=== PATIENT | male | born 1960 | race Caucasian/White ===

== ENCOUNTER 2018-10-20 04:03 | Observation (INO) | payer MEDICARE ==
[~2018-10-20] VITALS: Ht 188 cm; Wt 127.3 kg
--- NOTE | ~2018-10-20 | HEMODYNAMI ---
PATIENT:SUNIL ALEGRIA MEDICAL RECORD: [id number] : 58 LOCATION:[facility] [address] [facility] [id number] ADMISSION DATE: 10/20/18 Generatedon:10/21/201814:07 Patient name: SUNIL ALEGRIA Patient #: [id number] SSN: [id number] : 1960 Date of study: 10/21/2018 Page: Of Hemodynamic Procedure Report Patient Data Patient Demographics Procedure consent was obtained First Name: SUNIL Gender: Male Last Name: RAJI : 1960 Patient #: [id number] Age: 58 year(s) Race: SSN: [id number] Additional ID: [id number] Contact details [address]: [address] [place] [address] State: [place] City: [place] Zip code: [address] Past Medical History Allergies Allergen Reaction Date Comments Reported Other allergy 10/21/2018 codeine, meperidine, metoclopramide, prochlorperazine. Admission Admission Data Admission Date: 10/20/2018 Admission Time: 4:34 Arrival Date: 10/21/2018 Arrival Time: 0:00 Admit Source: Emergency Insurance Payor: Private department health insurance Room #: D.[address] [facility] #: [id number] Height (in.): 74 BSA: 2.51 (m2) Height (cm.): 187.96 BMI: 36.08 (kg/m2) Weight (lbs.): 281 Weight (kg.): 127.46 Lab Results Lab Result Date: 10/21/2018 Lab Result Time: 5:23 Biochemistry Name Units Result Min Max BUN mg/dl 12 --(-*--)-- 7 18 Creatinine mg/dl 1 --(--*-)-- 0.6 1.3 CBC Name Units Result Min Max Hematocrit % 40.7 -*(----)-- 42 54 Hemoglobin g/dl 13.6 --(*---)-- 13.5 17.5 Procedure Procedure Types Cath Procedure Diagnostic Procedure [facility] w/Coronaries Sedation Charges Moderate Sedation up to 45 minutes PCI Procedure PTCA PTCA Additional Coronary Atherectomy Atherectomy w/Stent Coronary Initial Procedure Description Procedure Date Procedure Date: 10/21/2018 Procedure Start Time: 13:02 Procedure End Time: 14:00 Procedure Staff Name Function Elliott Aaron RT Scrub Bernardo Arreaga RN Nurse Fernando Greenfield MD Assisting physician James Rushing MD Performing Physician Adan Avalos RT Monitor Indication Chest pain CAD Procedure Data Cath Procedure Fluoroscopy Diagnostic fluoroscopy Total fluoroscopy Time: time: 14.8 min 14.8 min Diagnostic fluoroscopy Total fluoroscopy dose: 981 dose: 981 mGy mGy Contrast Material Contrast Material Type Amount (ml) Isovue 300 183 Entry Location Entry Primary Successful Side Size Upsize Upsize Entry Closure Carter ccessful Closure Location (Fr) 1 (Fr) 2 (Fr) Remarks Device Remarks Radial Right 6 Fr Mechanical artery Short Compression Femoral Right 5 Fr 6 Fr Exoseal artery Short Estimated blood loss: 10 ml Diagnostic catheters Device Type Used For End Catheter Placement DIAGNOSTIC Jace 110cm Procedure 5Fr catheter ([id number]) DIAGNOSTIC [place] 4.5 5Fr Procedure catheter (092169) DIAGNOSTIC JL 4.0 5Fr Procedure catheter ([id number]) Procedure Complications No complications Procedure Medications Medication Administration Route Dosage Oxygen etCO2 Nasal cannula 2 l/min Heparin Flush Bag added to field 2 bags (1000units/500ml NS) 0.9% NaCl I.V. 100 ml/hr Lidocaine 2% added to field 20 Radial Cocktail added to field 1 syringe (Verapamil 2mg/Nitro 400mcg/Heparin 1500units) Fentanyl I.V. 50 mcg Versed I.V. 1 mg Fentanyl I.V. 50 mcg Versed I.V. 1 mg Fentanyl I.V. 50 mcg Versed I.V. 1 mg Radial Cocktail I.A. 1 syringe (Verapamil 2mg/Nitro 400mcg/Heparin 1500units) Fentanyl I.V. 50 mcg Versed I.V. 1 mg Heparin Bolus I.V. 5000 units Hemodynamics Rest BSA: 2.51 (m2) HGB: 13.6 (g/dl) O2 Consumption: Estimated: 283.9 (ml/min) O2 Con sumption indexed: Estimated:113.11 (ml/min/m) Heart Rate: 58 (bpm) Pressure Samples Time Site Value (mmHg) Purpose Heart Use Rate(bpm) 13:06 LV 145/-7,19 Snapshot 69 Gradients Valve Time Site Site Mean SEP/DFP Peak To Heart Use 1 2 (mmHg) (sec/min) Peak Rate (mmHg) (bpm) Aortic 13:06 LV AO 80 Snapshots Pre Cath Intra NCS Post Cath Vital Signs Time Heart Resp SPO2 etCO2 NIBP (mmHg) Rhythm Pain Status Sedation Rate (ipm) (%) (mmHg) Level (bpm) 12:46:32 61 16 94 0 164/98(137) NSR 9 (11) , 10(A) Excruciating unbearable 12:50:50 60 17 97 43.5 165/103(140) NSR 9 (11) , 10(A) Excruciating unbearable 12:55:06 57 17 95 51.7 155/91(137) NSR 9 (11) , 10(A) Excruciating unbearable 12:59:22 57 17 91 17.9 136/90(106) NSR 0 (11) , No 10(A) pain 13:03:34 62 17 94 0 138/87(115) NSR 0 (11) , No 10(A) pain 13:07:46 65 17 92 14.2 118/75(103) NSR 0 (11) , No 9(A) pain 13:11:54 66 17 92 31.4 133/72(91) NSR 0 (11) , No 9(A) pain 13:16:08 67 17 88 36 121/75(93) NSR 0 (11) , No 9(A) pain 13:20:18 64 12 92 42.7 137/73(104) NSR 0 (11) , No 9(A) pain 13:24:34 64 17 94 41.9 125/76(94) NSR 0 (11) , No 9(A) pain 13:28:54 61 17 93 39.7 126/70(96) NSR 0 (11) , No 9(A) pain 13:33:03 61 16 95 19.4 140/78(97) NSR 0 (11) , No 9(A) pain 13:37:15 63 16 94 12.7 124/76(101) NSR 0 (11) , No 9(A) pain 13:41:23 67 17 95 7.4 138/83(99) NSR 0 (11) , No 9(A) pain 13:45:39 63 16 94 40.4 138/74(105) NSR 0 (11) , No 9(A) pain 13:49:51 62 16 95 26.2 127/78(102) NSR 0 (11) , No 9(A) pain 13:54:01 65 17 94 26.2 135/80(119) NSR 0 (11) , No 9(A) pain 13:58:17 63 13 95 41.2 130/85(113) NSR 0 (11) , No 9(A) pain Medications Time Medication Route Dose Verified Delivered Reason Not es Effectiveness by by 12:47:15 Oxygen etCO2 2 l/min Fernando Chang Per physician Nasal Jean Pierre Arreaga RN cannula 12:47:25 Heparin Flush added 2 bags Fernando Chang used for Bag to Jean Pierre Arreaga RN procedure (1000units/500ml field NS) 12:47:35 0.9% NaCl I.V. 100 Fernando Bernardo Per physician ml/hr Jean Pierre Arreaga RN 12:47:42 Lidocaine 2% added 20ml Fernandorip Ledesmay used for to vial Jean Pierre Arreaga exchange mechanic field 12:47:52 Radial Cocktail added 1 Fernando Bernardo used for (Verapamil to syringe Jean Pierre Arreaga exchange mechanic 2mg/Nitro field 400mcg/Hepari 12:55:55 Fentanyl I.V. 50 mcg Fernando Chang for sedation Jean Pierre Arreaga RN 12:56:02 Versed I.V. 1 mg Fernando Bernardo for sedation Jean Pierre Arreaga RN 12:58:34 Fentanyl I.V. 50 mcg Fernando Bernardo for sedation Jean Pierre Arreaga RN 12:58:38 Versed I.V. 1 mg Fernando Bernardo for sedation Jean Pierre Arreaga RN 13:00:27 Fentanyl I.V. 50 mcg Fernando Bernardo for sedation Jean Pierre Arreaga RN 13:00:30 Versed I.V. 1 mg Fernando Bernardo for sedation Jean Pierre Arreaga RN 13:04:34 Radial Cocktail I.A. 1 James James for (Verapamil syringe Сергей Rushing MD vasodilation 2mg/Nitro 400mcg/Hepari 13:17:02 Fentanyl I.V. 50 mcg James Chang for sedation Сергей Arreaga RN 13:20:36 Versed I.V. 1 mg James Bernardo for sedation Сергей Arreaga RN 13:33:32 Heparin Bolus I.V. 5000 James Bernardo for units Сергей Arreaga RN anticoagulation Procedure Log Time Note 12:12:17 Elliott Walker RT(R) (CV) sent for patient. Start room use. 12:24:42 Diagnostic Cath Status : Urgent 12::29 Lab Result : Hemoglobin 13.6 g/dl 12::29 Lab Result : Hematocrit 40.7 % 12::29 Lab Result : BUN 12 mg/dl 12:: Lab Result : Creatinine 1 mg/dl 12:28:55 Admit Source: Emergency department 12:28:57 Arrival Date: 10/21/2018 12:00:00 AM 12:29:04 Insurance Payor : Private health insurance 12:29:35 Patient Weight : 281 lbs 12:29:43 Patient Height : 74 inches 12:31:32 Patient allergic to Other allergycodeine, meperidine, metoclopramide, prochlorperazine. 12:32:11 Indication : Chest pain 12:32:16 Indication : CAD 12:32:27 ACC Patient presents with Unstable Angina CCS Anginal Class 4--Inability to carry out any physical activity w/o angina. Angina may occur at rest. 12:32:58 ACCPatient has been prescribed/administered the following anti-anginal medication within the last 2 weeks: None 12:37:16 Procedure Status Urgent Heart Cath (IP). 12:37:24 Time tracking: Regular hours (M-F 7:00 - 5:00) 12:37:27 Plan of Care:Hemodynamics will remain stable., Cardiac rhythm will remain stable., Comfort level will be maintained., Respiratory function will remain adequate., Patient/ family verbilizes understanding of procedure., Procedure tolerated without complication., Recovers from procedure without complications.. 12:37:37 Patient received from Med II to CCL 3 Alert and oriented. Tansferred to table in Supine position. 12:37:38 Warm blankets applied, and jose hugger turned on for patient comfort. 12:37:40 Signed procedure consent form obtained from patient. 12:37:41 ECG and BP/O2 sat monitors applied to patient. 12:37:41 Correct patient and procedure confirmed by team. 12:37:51 H&P Date Dictated: 10/20/2018 Within 30 days and on chart.. 12:37:52 Pre-procedure instructions explained to patient. 12:37:53 Pre-op teaching completed and patient verbalized understanding. 12:37:54 Family in patients room. 12:37:55 Patient NPO since Midnight. 12:37:57 Is the patient allergic to Iodine/contrast media? No. 12:37:58 Is patient on blood thinner?Yes 12:38:01 ACC The patient was administered the following blood thiners within the last 24 hours: ACCAspirin, ACCPlavix 12:45:25 Vital chart was started 12:47:15 Oxygen 2 l/min etCO2 Nasal cannula was administered by Bernardo Arreaga RN; Per physician; 12:47:25 Heparin Flush Bag (1000units/500ml NS) 2 bags added to field was administered by Bernardo Arreaga RN; used for procedure; 12:47:35 0.9% NaCl 100 ml/hr I.V. was administered by Bernardo Arreaga RN; Per physician; 12:47:42 Lidocaine 2% 20ml vial added to field was administered by Bernardo Arreaga RN; used for procedure; 12:47:52 Radial Cocktail (Verapamil 2mg/Nitro 400mcg/Heparin 1500units) 1 syringe added to field was administered by Bernardo Arreaga RN; used for procedure; 12:53:40 Patient diabetic? No. 12:53:43 Previous problem with sedation/anesthesia? No ? 12:53:44 Snore? Yes 12:53:45 Sleep apnea? Yes 12:53:46 Opens mouth fully? Yes 12:53:46 Deviated septum? No 12:53:47 Sticks out tongue? Yes 12:53:48 Airway obstruction? No ? 12:53:50 Dentures? No ? 12:53:53 Pre procedure: right dorsailis pedis pulse 2+ Normal; easily identifiable; not easily obliterated 12:54:07 Patient pain scale 9/10 ?. 12:54:11 IV patent on arrival in right forearm with 0.9% NaCl at [facility]. 12:54:14 Lab results completed and on chart. 12:54:29 Right Radial & Right Groin area was prepped with chlora-prep and draped in sterile fashion 12:54:30 Alarms reviewed by R. N. 12:54:31 Sharps counted by scrub and verified by R.N. 12:54:35 Use device set Radial Dx or PCI 12:54:36 Medline Cath Pack ([id number]) opened to sterile field. 12:54:36 ACIST Syringe (74326) opened to sterile field. 12:54:37 ACIST Manifold (73423) opened to sterile field. 12:54:37 ACIST Hand Control (51060) opened to sterile field. 12:54:37 Bag Decanter (2002S) opened to sterile field. 12:54:38 MBrace Wrist Support (054887458) opened to sterile field. 12:54:38 Tegaderm 4 x 4 (1626W) opened to sterile field. 12:54:41 SHEATH 6FR RAIN (9962006) opened to sterile field. 12:54:42 EMERALD Guide Wire (356-133) opened to sterile field. 12:54:43 NEEDLE Cook 21G 4cm Radial (L70342) opened to sterile field. 12:54:48 Baseline sample Acquired. 12:54:50 Rhythm: sinus rhythm 12:54:51 Full Disclosure recording started 12:54:56 Final Timeout: patient, procedure, and site verified with staff and physician. All members of the team are in agreement. 12:54:56 --------ALL STOP TIME OUT------ 12:54:56 Physician arrived 12:54:57 Right Radial & Right Groin site verified by team. 12:55:00 Fire Safety Assessment: A--An alcohol-based skin anteseptic being used preoperatively., C--Open oxygen or nitrous oxide is being used., D--An ESU, laser, or fiber-optic light is being used. 12:55:07 Physical assessment completed. ASA score P 2 - A patient with mild systemic disease as per James Rushing MD. 12:55:11 2) 60-89 Mildly reduced kidney function, and other findings (as for stage 1) point to kidney disease. 12:55:18 Maximum allowable contrast dose (3.7 X eGFR X 0.75)225 ml. 12:55:20 Sedation plan: IV Moderate Sedation Medication:Versed, Fentanyl 12:55:55 Fentanyl 50 mcg I.V. was administered by Bernardo Arreaga RN; for sedation; 12:56:02 Versed 1 mg I.V. was administered by Bernarod Arreaga RN; for sedation; 12:58:34 Fentanyl 50 mcg I.V. was administered by Bernardo Arreaga RN; for sedation; 12:58:38 Versed 1 mg I.V. was administered by Bernardo Arreaga RN; for sedation; 12:59:02 Zero performed for pressure channel P1 12:59:26 Zero performed for pressure channel P1 12:59:29 Zero performed for pressure channel P1 12:59:32 Zero performed for pressure channel P1 13:00:27 Fentanyl 50 mcg I.V. was administered by Bernardo Arreaga RN; for sedation; 13:00:30 Versed 1 mg I.V. was administered by Bernardo Arreaga RN; for sedation; 13:02:14 Procedure started. 13:02:19 Local anesthetic to right radial artery with Lidocaine 2% by James Rushing MD.INITIAL ACCESS ONLY 13:02:31 A 6 Fr Short sheath was inserted into the Right Radial artery 13:04:30 A DIAGNOSTIC Jace 110cm 5Fr catheter (215331) was advanced over the wire and used for Procedure. 13:04:34 Radial Cocktail (Verapamil 2mg/Nitro 400mcg/Heparin 1500units) 1 syringe I.A. was administered by James Rushing MD; for vasodilation; 13:06:05 LV gram done using PLAZA 13:06:07 Injector settings: Ml/sec: 5, Volume: 15, 13:06:13 LV hemodynamics recorded. 13:06:36 EF : 60 % 13:07:11 RCA angiography performed. 13:08:57 Catheter exchanged over wire. 13:09:22 GUIDE 6FR EBU 3.5 catheter ([id number]) opened to sterile field. 13:12:26 6 Fr ebu 3.5 guide catheter was inserted over the wire 13:12:46 Guide Catheter removed. unable to cannulate vessel. 13:13:26 A DIAGNOSTIC [place] 4.5 5Fr catheter (624112) was advanced over the wire and used for Procedure. 13:15:03 LCA angiography performed. 13:15:51 Catheter removed. 13:15:59 SHEATH 5FR [place] (BMQ003) opened to sterile field. 13:16:08 Use device set Multipack Set 13:16:17 Local anesthetic to right femoral artery with Lidocaine 2% by James Rushing MD.ADDITIONAL ACCESS 13:17:02 Fentanyl 50 mcg I.V. was administered by Bernardo Arreaga RN; for sedation; 13:20:36 Versed 1 mg I.V. was administered by Bernardo Arreaga RN; for sedation; 13:20:42 A 5 Fr sheath was inserted into the Right Femoral artery 13:21:51 A DIAGNOSTIC JL 4.0 5Fr catheter ([id number]) was advanced over the wire and used for Procedure. 13:21:59 LCA angiography performed. 13:28:07 Catheter removed. 13:28:18 INFLATOR Merit BasixCompak (NO1961) opened to sterile field. 13:28:19 SHEATH 6FR [place] (EST955) opened to sterile field. 13:28:25 LASER ELCA 0.9 Rx atherectomy catheter (480529) opened to sterile field. 13:28:31 GUIDE 6FR XBLAD 4.0 catheter (54692459) opened to sterile field. 13:28:44 Sheath upsized to a 6 Fr Short. 13:28:51 6 Fr xblad 4 guide catheter was inserted over the wire 13:30:22 ACCDominant side:Co-Dominant 13:31:02 CHOICE PT Extra Support 182cm wire ([id number]) opened to sterile field. 13:32:58 Pre PCI Site: [place] pLAD has 90% stenosis. 13:33:04 Pre PCI Site: [place] Diag1 has 90% stenosis. 13:33:07 ACC Pre-intervention DARY Flow is 3. 13:33:09 ACC Pre-intervention DARY Flow is 3. 13:33:14 Pre PCI Site: [place] LAD has 90% stenosis. 13:33:32 Heparin Bolus 5000 units I.V. was administered by Bernardo Arreaga RN; for anticoagulation; 13:35:32 6 Fr xblad 4 guide catheter was inserted over the wire 13:37:22 choice pt es wire advanced. 13:37:24 Wire advanced across lesion. 13:37:45 Laser pass to Diag1 with Fluence of 80 and Rate of 40. 13:39:45 Wire redirected to lad. 13:47:39 ACT drawn and resulted at 311 seconds. (normal therapeutic range 180-240 seconds). 13:48:58 Laser pass to LAD with Fluence of 80 and Rate of 40. 13:50:43 Laser catheter removed. 13:51:39 Place stent Inflation Number: 1 A BATSHEVA RX 2.5 x 12 stent ([id number]) was prepped and advanced across the Mid LAD . The stent was deployed at 15 RADHA for 0:10 (min:sec) . 13:51:56 Inflation number: 11 The stent balloon was then re-inflated across the Mid LAD to 15 RADHA for 0:10 (min:sec) . 13:52:02 Inflation number: 12 The stent balloon was then re-inflated across the Mid LAD to 15 RADHA for 0:10 (min:sec) . 13:52:35 Wire redirected to diag. 13:52:45 ACC Post-intervention DARY Flow is 3. 13:53:07 Inflation number: 1 The stent balloon was then re-inflated across the 1st Diag to 13 RADHA for 0:10 (min:sec) . 13:53:10 Inflation number: 2 The stent balloon was then re-inflated across the 1st Diag to 13 RADHA for 0:10 (min:sec) . 13:55:41 Stent catheter was removed intact over wire. 13:55:41 Wire removed. 13:55:42 Guide catheter removed. 13:55:46 ACC Post-intervention DARY Flow is 3. 13:55:52 Post PCI Site: [place] Diag1 has 0% stenosis. 13:55:59 Post PCI Site: [place] pLAD has 0% stenosis. 13:56:26 ZEPHYR REGULAR TR BAND (115376) opened to sterile field. 13:56:26 EXOSEAL 6Fr (EX600) opened to sterile field. 13:56:34 Sheath removed intact; hemostasis achieved with Exoseal to the Right Femoral artery. 13:56:40 Sheath removed intact; hemostasis achieved with Mechanical Compression to the Right Radial artery. 13:56:42 Procedure ended.(Physican Out) 13:57:12 Fluoroscopy time 14.80 minutes. 13:57:23 Fluoroscopy dose: 981 mGy 13:57:23 Flurop Dose total: 981 13:57:37 Dose Area Product 6485.85 mGy/cm. 13:57:41 Contrast amount:Isovue 300 183ml. 13:57:42 Sharps counted by scrub and verified by R.N. 13:57:44 [place] band inflated with 12cc of air. 13:57:45 Insertion/operative site no bleeding no hematoma. 13:57:48 Post-op/insertion site Right Femoral artery dressed using a 4 x 4 and Tegaderm. 13:57:50 Post right femoral artery:stable, soft, clean and dry 13:57:52 Post Procedure Pulses reassessed and unchanged 13:57:53 Post-procedure physical assessment completed. ASA score P 2 - A patient with mild systemic disease as per James Rushing MD. 13:57:59 Estimated blood loss: 10 ml 13:58:01 Post procedure instruction explained to patient.Patient verbalizes understanding. 13:58:01 Patient needs reinforcement of post procedure teaching. 13:58:48 Procedure type changed to Cath procedure, Diagnostic procedure, LHC, LHC w/Coronaries, Sedation Charges, Moderate Sedation up to 45 minutes, PCI procedure, PTCA, PTCA Additional, Coronary Atherectomy, Atherectomy w/Stent Coronary Initial 13:59:57 Procedure and supply charges have been captured, reviewed, submitted and are correct. 13:59:59 Procedure Complication : No complications 14:00:01 See physician's report for complete and final results. 14:00:01 Vital chart was stopped 14:00:06 Report given to PCU. 14:00:08 Patient transfered to PCU with Stretcher. 14:00:10 Procedure ended. 14:00:10 Full Disclosure recording stopped 14:00:21 ACC-PCI Only Patient was given prescriptions, or instructed by James Rushing MD to start/continue the following medications upon discharge: Aspirin, Plavix 14:00:22 End room use (Document Last) Intervention Summary Intervention Notes Time ActionType Lesion and Equipment Used Action# Pressure Duration Attributes 13:51:39 Place stent Mid LAD BATSHEVA RX 2.5 x 1 15 00:10 12 stent ([id number]) 13:51:56 Reinflate Mid LAD BATSHEAV RX 2.5 x 11 15 00:10 stent 12 stent balloon ([id number]) 13:52:02 Reinflate Mid LAD BATSHEVA RX 2.5 x 12 15 00:10 stent 12 stent balloon ([id number]) 13:53:07 Reinflate 1st Diag BATSHEVA RX 2.5 x 1 13 00:10 stent 12 stent balloon ([id number]) 13:53:10 Reinflate 1st Diag BATSHEVA RX 2.5 x 2 13 00:10 stent 12 stent balloon ([id number]) Device Usage Item Name Manufacture Quantity Catalog Number Hospital Part Current M inimal Lot# / Charge Number Stock Stock Serial# Code ACIST Syringe Acist 1 32901 895998 599028 888771 2 0 (87225) Medical Systems Inc Medline Cath Medline 1 [id number] 728301 93861 786650 5 Pack ([id number]) Bag Decanter Microtek 1 2001S 698165 01807 581455 5 (2001S) Medical Inc. ACIST Hand Acist 1 04447 572104 755676 450614 5 Control Medical (40210) Systems Inc ACIST Manifold Acist 1 76356 603793 302318 608593 5 (91484) Medical Systems Inc Tegaderm 4 x 4 3M 1 1626W 666635 650771 676984 5 (1626W) MBrace Wrist Advanced 1 140-0250-00 046432 38854 972017 5 Support Vascular ([id number]) Dynamics SHEATH 6FR Cardinal 1 0356008 340675 1823352 723896 5 RAIN (9828052) Health EMERALD Guide Cardinal 1 502-455 068535 136705 132236 5 Wire (502-455) Health NEEDLE [facility] 1 V33319 466464 585015 221107 5 21G 4cm Radial (S81060) DIAGNOSTIC Terumo 1 40-5023 950597 804726 401085 5 Jace 110cm 5Fr catheter (907707) GUIDE 6FR EBU Medtronic 1 [id number] 804045 40945 281093 3 3.5 catheter ([id number]) DIAGNOSTIC Terumo 1 40-5012 484610 975981 314633 5 [place] 4.5 5Fr catheter (659597) SHEATH 5FR Terumo 1 KRV962 901159 976568 348698 5 [place] (OOL039) DIAGNOSTIC JL Cardinal 1 [id number] 347737 962337 219831 1 0 4.0 5Fr Health catheter (456715D) INFLATOR Merit Merit 1 DL0043 100251 421575 565743 1 5 BasixCompak Medical (JD6342) SHEATH 6FR Terumo 1 VWV599 615224 651581 210976 4 0 [place] (BFD722) LASER ELCA 0.9 [place] 1 110-004 491333 392838 218910 5 Rx atherectomy Healthcare catheter (574202) (036066) GUIDE 6FR Cardinal 1 60300523 179395 002772 526688 3 XBLAD 4.0 Health catheter (44793919) CHOICE PT [place] 1 [id number] 560030 291794 103208 5 Extra Support Scientific 182cm wire ([id number]) BATSHEVA RX 2.5 x Medtronic 1 [id number] 890451 0143926 182793 5 [id number] 12 stent ([id number]) EXOSEAL 6Fr Cardinal 1 EX600 487270 859933 959399 1 0 (EX600) Health ZEPHYR REGULAR Cardinal 1 232981 837380 0652258 514874 5 TR BAND [facility] (765852) Signature Audit [place] Stage Time Signature Unsigned Intra-Procedure 10/21/2018 Adan Avalos RT(Tianna) 2:07:41 PM Signatures Nurse : Bernardo Arreaga RN Signature : Date : Time : Performing Physician : James Signature : Сергей DIETZ Date : Time : Monitor : Adan Avalos RT Signature : Date : Time : [place] [address] [place] [address]
[2018-10-20] MEDS ORDERED: PLAVIX75 MG PO (04:10)
[2018-10-20] MEDS ORDERED: CYMBALTA60 MG PO (04:10)
[2018-10-20] MEDS ORDERED: NUGENIX (04:11)
[2018-10-20] MEDS ORDERED: MIRAPEX0.5 MG PO (04:11)
[2018-10-20] MEDS ORDERED: TIAZAC/CARDIZE120 MG PO (04:12)
[2018-10-20] MEDS ORDERED: FLOMAX0.4 MG PO (04:12)
[2018-10-20] MEDS ORDERED: TRAZODONE HCL150 MG PO (04:13)
[2018-10-20] MEDS ORDERED: KLONOPIN1 MG PO (04:13)
--- NOTE | 2018-10-20 04:27 | NUR ---
PT GIVEN ICE CHIPS.
[2018-10-20 05:12] LABS: CKMB 1.2 U/L (0.0-3.6); CREATINE KINASE 81 UL (21-232)
[2018-10-20 05:25] LABS: TROPONIN-I < 0.017 ng/mL (0.000-0.060)
--- NOTE | 2018-10-20 06:10 | NUR ---
I have reviewed this patient and I concur with the Shift Assessment completed by the Licensed Practical Nurse today this shift.
[2018-10-20 08:25] VITALS: BP 115/73
[2018-10-20 10:33] LABS: BASOPHILS 0.3 % (0-2); EOSINOPHILS 2.1 % (0-7); HEMATOCRIT 40.3 % (42.0-54.0); HEMOGLOBIN 13.6 g/dL (13.5-17.5); IMMATURE GRANULOCYTES 0.3 % (0-5); LYMPHOCYTES 24.5 % (15-50); MCH 32.5 pg (26.0-34.0); MCHC 33.7 g/dL (31.0-37.0); MCV 96.2 fL (80.0-100.0); MEAN PLATELET VOLUME 9.2 fL (7.4-10.4); MONOCYTES 9.1 % (2-11); NEUTROPHILS 63.7 % (40-80); PLATELET COUNT 156 10x3/uL (130-400); RBC 4.19 10x6/uL (4.20-6.10); WBC 6.7 10x3/uL (4.8-10.8)
[2018-10-20 10:55] LABS: ALBUMIN 3.1 g/dL (3.4-5.0); ALKALINE PHOSPHATASE 143 U/L (46-116); ALT (SGPT) 81 U/L (10-68); BILIRUBIN - TOTAL 0.22 mg/dL (0.2-1.3); CALC OSMOLALITY 280 mosm/kg (275-300); CALCIUM 8.2 mg/dL (8.5-10.1); CHLORIDE - SERUM 105 mmol/L (98-107); GLUCOSE 95 mg/dL (74-106); PROTEIN - SERUM 6.2 g/dL (6.4-8.2); SODIUM 141 mmol/L (136-145); UREA NITROGEN 13 mg/dL (7-18); eGFR NON AFRICAN AMERICAN 81 mL/min (90-120)
[2018-10-20 11:08] LABS: CKMB 1.2 U/L (0.0-3.6); CREATINE KINASE 68 UL (21-232); TROPONIN-I < 0.017 ng/mL (0.000-0.060)
[2018-10-20 11:26] LABS: INR 0.98 (0.85-1.17); PROTIME 12.5 SECONDS (11.6-15.0)
[2018-10-20 11:28] LABS: D-DIMER-QUANTITATIVE 0.61 ug/mLFEU (0.20-0.54)
[2018-10-20 11:33] VITALS: BP 113/66
[2018-10-20 12:46] VITALS: BMI 30.1
--- NOTE | 2018-10-20 13:01 | NUR ---
ASSESSMENT DONE. DENIES NEEDS
--- NOTE | 2018-10-20 14:22 | NUR ---
I have reviewed this patient and I concur with the Shift Assessment completed by the Licensed Practical Nurse today this shift.
[2018-10-20 17:01] LABS: CKMB 1.1 U/L (0.0-3.6); TROPONIN-I < 0.017 ng/mL (0.000-0.060)
[2018-10-20 17:02] LABS: CREATINE KINASE < 7 UL (21-232)
--- NOTE | 2018-10-20 19:32 | NUR ---
REPORT RECEIVED, WILL CONTINUE POC. PATIENT IS AAOX4 UP AD FRANTZ. NO S/SX OF DISTRESS NOTED. RR EVEN AND UNLABORED ON ROOM AIR. PATIENT REQUESTED SHERBERT AND MARIA LUISA, GIVEN. PATIENT DENIES FURTHER NEEDS AT THIS TIME. FAMILY AT BEDSIDE, CL IN REACH, BED LOCKED AND LOWERED. WILL CTM.
[2018-10-20 20:27] VITALS: BP 134/86
[2018-10-21 00:27] VITALS: BP 128/70
[2018-10-21 02:10] VITALS: BP 138/76; Ht 188 cm; Wt 127.3 kg
--- NOTE | 2018-10-21 03:19 | NUR ---
I have reviewed this patient and I concur with the Shift Assessment completed by the Licensed Practical Nurse today this shift.
[2018-10-21 04:19] VITALS: BP 136/73
--- NOTE | 2018-10-21 05:02 | NUR ---
PATIENT C/O PAIN. NO MEDS FOR PAIN ORDERED. CALLED [facility], ORDERS GIVEN FOR MORPHINE 2MG Q4HPRN.
[2018-10-21 06:08] LABS: BASOPHILS 0.5 % (0-2); EOSINOPHILS 3.6 % (0-7); HEMATOCRIT 40.7 % (42.0-54.0); HEMOGLOBIN 13.6 g/dL (13.5-17.5); IMMATURE GRANULOCYTES 0.4 % (0-5); LYMPHOCYTES 29.8 % (15-50); MCH 32.2 pg (26.0-34.0); MCHC 33.4 g/dL (31.0-37.0); MCV 96.2 fL (80.0-100.0); MEAN PLATELET VOLUME 9.1 fL (7.4-10.4); MONOCYTES 8.3 % (2-11); NEUTROPHILS 57.4 % (40-80); PLATELET COUNT 155 10x3/uL (130-400); RBC 4.23 10x6/uL (4.20-6.10); RDW 12.8 % (11.5-14.5); WBC 5.5 10x3/uL (4.8-10.8)
[2018-10-21 06:33] LABS: ALBUMIN 2.9 g/dL (3.4-5.0); ALKALINE PHOSPHATASE 122 U/L (46-116); BILIRUBIN - TOTAL 0.18 mg/dL (0.2-1.3); CALC OSMOLALITY 281 mosm/kg (275-300); CALCIUM 8.4 mg/dL (8.5-10.1); CARBON DIOXIDE 31.2 mmol/L (21.0-32.0); CHLORIDE - SERUM 106 mmol/L (98-107); GLUCOSE 88 mg/dL (74-106); MAGNESIUM - SERUM 2.2 mg/dL (1.8-2.4); PROTEIN - SERUM 6.1 g/dL (6.4-8.2); SODIUM 142 mmol/L (136-145); UREA NITROGEN 12 mg/dL (7-18); eGFR NON AFRICAN AMERICAN 81 mL/min (90-120)
[2018-10-21 06:45] LABS: ALT (SGPT) 49 U/L (10-68)
--- NOTE | 2018-10-21 07:00 | NUR ---
PATIENT RESTING IN BED C NO COMPLAINTS OF PAIN OR DISTRESS. AWAKE ALERT AND ORIENTED. IV TO RIGHT FOREARM FLUSHES. EXPLAINED POSSIBILITY OF HEART CATH TODAY AND TO REMAIN NPO TILL NOTIFIED OTHERWISE. IN ROOM. WILL CONTINUE TO MONITOR
[2018-10-21 08:32] VITALS: BP 130/79
--- NOTE | 2018-10-21 10:09 | NUR ---
OBTAINED CONSENTS FOR HEART CATH AND PLACED IN CHART
[2018-10-21 11:34] VITALS: BP 136/70
--- NOTE | 2018-10-21 11:56 | NUR ---
PREOPPED PATIENT PER ORDERS
--- NOTE | 2018-10-21 13:00 | NUR ---
PATIENT TAKEN TO SHAFT TENDER AT THIS TIME
--- NOTE | 2018-10-21 14:20 | NUR ---
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 TR BAND TO RIGHT RADIAL, 6 MARTINIQUAIS EXOSEAL TO RIGHT GROIN, DRESSING CDI. INSTRUCTED TO LAY FLAT FOR 4 HOURS. RIGHT PEDAL PULSE AND RIGHT RADIAL PULSES ARE STRONG. VSS. NS INFUSING AT 100ML/HR. NO COMPLAINTS. WILL CONTINUE TO MONITOR
--- NOTE | 2018-10-21 15:38 | NUR ---
DISCHARGE INSTRUCTINS GIVEN AND PAPERS SIGNED. PRESCRIPTIONS GIVEN TO . EXPLAINED THEY STILL HAVE TO WAIT TILL 1800 BEFORE LEAVING TO FINISH POST CATH SITE MONITORING.
[2018-10-21 16:23] VITALS: BP 124/79
--- NOTE | 2018-10-21 17:00 | NUR ---
REMOVED 6 CC AIR FROM TF BAND TO RIGHT RADIAL. NO BLEEDING. PT STILL SUPINE. VSS
--- NOTE | 2018-10-21 17:25 | MORECARE ---
CASE MANAGEMENT DISCHARGE SUMMARY PATIENT: SUNIL ALEGRIA UNIT: [id number] ADM DATE: 10/20/18 AGE: 58 : 58 SEX: M ROOM/BED: D.2128 AUTHOR: SINGH DOS SANTOS PHYSICIAN: REFERRING PHYSICIAN: KAMRAN TELLO DO DATE OF SERVICE: 10/21/18 Discharge Plan Patient Name: SUNIL [facility]LEGRIA [facility] [facility] 1960 Planned Disposition: Home Anticipated Discharge Date: 10/21/18 Discharge Date: Expected LOS: 1 Initial Reviewer: [email or web address] Initial Review Date: 10/21/2018 Generated: 10/21/18 6:25 pm Coverage Notice Reviewer: [email or web address] Carlos Alberto Perez Notice Issued Date-Time: 10/21/2018 12:01 Notice Type: Medicare Outpatient Observation Notice Notice Delivered To: Patient Relationship to Patient: Self Emergency Medical Technician/Driver Name: Delivery Method: HAND - Hand Delivered Areli Days: Prior Verbal Notification: Recipient Understood Notice: Yes Recipient Signature: Yes Med Rec Note Co-signed by Attending: Coverage Notice Comment: Patient Name: SUNIL ALEGRIA Page 20644 at 1725 All edits/amendments must be made on the electronic document DICTATION DATE: 10/21/181723 PRACTICING UROLOGIST: ASHLEY 10/21/181723 RPT#: [id number] DC DATE: STATUS: ADM IN [facility] [address] [place] [address] END OF REPORT
--- NOTE | 2018-10-21 17:58 | NUR ---
DC'D IV AND TELEMETRY. REMOVED REMAINDER OF AIR IN TR BAND. NO BLEEDING. INSTRUCTED PATIENT TO REFRAIN FROM BENDING WRIST AND HEAVY LIFTING FOR 48 HOURS, AND TO KEEP BENDING AT WAIST TO MINIMUM FOR NEXT 48 HOURS. DISCHARGE INSTRUCTIONS GIVEN WITH PAPERS AND PRESCRIPTION. ASSISTING GETTING DRESSED.
--- NOTE | 2018-10-21 18:10 | NUR ---
WHEELED PATIENT DOWN TO WIFES VEHICLE FOR HAY CHOPPER.
--- NOTE | 2018-10-25 11:09 | OP ---
PATIENT NAME: SUNIL ALEGRIA MEDICAL RECORD: [id number] :58 LOCATION:D.M2 D.2128 ADMISSION DATE:10/20/18 SURGEON: RODRIGO ARROYO MD DATE OF OPERATION: 10/21/2018 PROCEDURES: 1. Laser atherectomy, LAD. 2. Laser atherectomy, LAD diagonal. 3. PTCA and stent, LAD. 4. PTCA, LAD diagonal. 5. Selective coronary angiography. DESCRIPTION OF PROCEDURE: After informed consent was obtained with detailed description of risks and benefits as well as alternative therapies, the patient elected to proceed with angiogram and angioplasty. There was in-stent restenosis of LAD and LAD diagonal. These were addressed with 0.9 laser catheter. Multiple passes were made. The LAD was stented with a 2.5 x 12 mm Alvarado. The 2.5 balloon was used in the diagonal. Result was 0% residual. IMPRESSION: Successful laser atherectomy; PTCA and stent of LAD and diagonal, going from 90% in-stent restenosis to 0% residual. TRANSINT:[id number] Voice Confirmation ID: [id number] DOCUMENT ID: [id number] RODRIGO ARROYO MD at 1109 CC: [id number] DICTATION DATE: 10/21/18 1400 CLAIM BENEFIT SPECIALIST: 10/21/18 1450 DIS IN 10/21/18 [id number] [place] [address]
== END 2018-10-21 18:19 | disposition home or self-care (01) ==
LOC: D.ER 04:03 → D.M2 04:34 → OBSVTIME 04:34 → D.SDCHOLD 10-21 09:14 → D.M2 10-21 09:15
PROVIDERS: Emergency Medicine; Family Medicine; ADMIT Family Medicine; ATTEND Family Medicine
DX: I25.110 Atherosclerotic heart disease of native coronary artery with unstable angina pectoris (principal); I10 Essential (primary) hypertension; E78.5 Hyperlipidemia, unspecified; N40.0 Benign prostatic hyperplasia without lower urinary tract symptoms; K21.9 Gastro-esophageal reflux disease without esophagitis; F32.9 Major depressive disorder, single episode, unspecified
CPT/HCPCS: 93458; 92925; C9602

== ENCOUNTER 2019-01-29 01:34 | Observation (INO) | payer MEDICARE ==
[2019-01-29] VITALS (7 sets, daily range): BP systolic 121–152; BP diastolic 72–92; BMI 32.7
[~2019-01-29] VITALS: Ht 188 cm; Wt 115.2 kg
--- NOTE | ~2019-01-29 | DS ---
PATIENT:SUNIL VIZCAINO :58 MEDICAL RECORD: [id number] DISCHARGE SUMMARY ADMISSION DATE: 01/29/19 DISCHARGE DATE: 01/30/19 DATE OF DISCHARGE: 01/30/2019 DIAGNOSES: 1. Unstable angina. 2. Coronary artery disease. 3. Percutaneous transluminal coronary angioplasty and stent to the left anterior descending this admission. 4. Hypertension. 5. Hyperlipidemia. HOSPITAL COURSE: Mr. Vizcaino presents with unstable anginal symptomatology, found to have significant disease of the LAD, underwent successful PTCA and stent of the LAD, had no further anginal symptomatology. Discharged home with no change in medications as he is already on aspirin and Plavix. Follow up with [facility] in [facility] month. TRANSINT:[id number] Voice Confirmation ID: [id number] DOCUMENT ID: [id number] RODRIGO ARROYO MD CC: [id number] DICTATION DATE: 01/30/19 1040 MARKET RESEARCH MANAGER: 01/30/194 DIS IN 01/30/19 [facility] [address] [place] [address]
--- NOTE | ~2019-01-29 | HEMODYNAMI ---
PATIENT:SUNIL ALEGRIA MEDICAL RECORD: [id number] : 58 LOCATION:[facility] D.2115 [facility]# [id number] ADMISSION DATE: 01/29/19 Generatedon:01/30/201910:42 Patient name: SUNIL ALEGRIA Patient #: [id number] SSN: [id number] : 1960 Date of study: 01/30/2019 Page: Of Hemodynamic Procedure Report Patient Data Patient Demographics Procedure consent was obtained First Name: SUNIL Gender: Male Last Name: RAJI : 1960 Patient #: [id number] Age: 58 year(s) Race: SSN: [id number] Additional ID: [id number] Contact details [address]: [address] [place] [address] State: [place] City: [place] Zip code: [address] Past Medical History Allergies Allergen Reaction Date Comments Reported Other allergy 10/21/2018 codeine, meperidine, metoclopramide, prochlorperazine. Other allergy 01/30/2019 compazine, codeine Admission Admission Data Admission Date: 01/29/2019 Admission Time: 2:16 Arrival Date: 01/30/2019 Arrival Time: 0:00 Admit Source: Other Insurance Payor: Private Room #: D.2115 health insurance [facility] #: [id number] Height (in.): 73.62 BSA: 2.39 (m2) Height (cm.): 187 BMI: 32.89 (kg/m2) Weight (lbs.): 253.53 Weight (kg.): 115 Lab Results Lab Result Date: 01/30/2019 Lab Result Time: 0:00 Biochemistry Name Units Result Min Max BUN mg/dl 20 --(----)*- 7 18 Creatinine mg/dl 0.9 --(-*--)-- 0.6 1.3 CBC Name Units Result Min Max Hemoglobin g/dl 12.5 *-(----)-- 13.5 17.5 Procedure Procedure Types Cath Procedure Diagnostic Procedure [facility] w/Coronaries FFR/IVUS FFR Initial Sedation Charges Moderate Sedation up to 30 minutes PCI Procedure Coronary Stent Coronary Stent Initial Procedure Description Procedure Date Procedure Date: 01/30/2019 Procedure Start Time: 10:12 Procedure End Time: 10:42 Procedure Staff Name Function Fernando Greenfield MD Performing Physician Marilin Maldonado RT Monitor Deanne Thorpe RN Nurse Cindy Ramirez RT Scrub Radha Gordon RT Scrub Indication Chest pain Procedure Data Cath Procedure Fluoroscopy Diagnostic fluoroscopy Total fluoroscopy Time: 7.1 time: 7.1 min min Diagnostic fluoroscopy Total fluoroscopy dose: dose: 1465 mGy 1465 mGy Contrast Material Contrast Material Type Amount (ml) Isovue 300 104 Entry Location Entry Primary Successful Side Size Upsize Upsize Entry Closure Succes sful Closure Location (Fr) 1 (Fr) 2 (Fr) Remarks Device Remarks Femoral Right 5 Fr 6 Fr Exoseal artery Short Estimated blood loss: 10 ml Diagnostic catheters Device Type Used For End Catheter Placement MULTIPACK Pigtail 5 Fr Procedure catheter MULTIPACK JL 4.0 5Fr catheter MULTIPACK 3DRC 5Fr Procedure catheter Procedure Complications No complications Procedure Medications Medication Administration Route Dosage Oxygen 8 l/min Lidocaine 2% added to field 20 Heparin Flush Bag added to field 2 bags (1000units/500ml NS) 0.9% NaCl I.V. 100 ml/hr Versed I.V. 2 mg Fentanyl I.V. 100 mcg Versed I.V. 2 mg Fentanyl I.V. 100 mcg Versed I.V. 2 mg Heparin Bolus I.V. 4000 units Plavix P.O. 75 mg Hemodynamics Rest BSA: 2.39 (m2) HGB: 12.5 (g/dl) O2 Consumption: Estimated: 271.92 (ml/min) O2 Co nsumption indexed: Estimated:113.77 (ml/min/m) Heart Rate: 60 (bpm) Snapshots Pre Cath Intra NCS Post Cath Vital Signs Time Heart Resp SPO2 etCO2 NIBP (mmHg) Rhythm Pain Sedation Rate (ipm) (%) (mmHg) Status Level (bpm) 8:39:38 55 16 92 0 135/82(108) NSR 8 (11) , 10(A) Utterly horrible 8:44:29 58 14 97 0 133/80(112) NSR 8 (11) , 10(A) Utterly horrible 8:48:43 54 17 97 0 136/79(93) NSR 8 (11) , 10(A) Utterly horrible 8:53:32 58 11 97 0 133/81(103) NSR 0 (11) , 10(A) No pain 8:57:46 54 14 97 0 130/78(99) NSR 0 (11) , 10(A) No pain 9:02:00 58 17 96 0 129/75(97) NSR 0 (11) , 10(A) No pain 9:06:14 58 18 96 0 119/69(99) NSR 0 (11) , 10(A) No pain 9:10:24 58 14 95 0 120/72(95) NSR 0 (11) , 10(A) No pain 9:14:34 58 15 95 0 119/78(100) NSR 0 (11) , 10(A) No pain 9:18:41 58 12 94 0 121/79(98) NSR 0 (11) , 10(A) No pain 9:22:50 60 15 95 0 119/81(97) NSR 0 (11) , 10(A) No pain 9:27:01 58 14 94 0 120/75(98) NSR 0 (11) , 10(A) No pain 9:31:11 61 18 93 0 130/73(96) NSR 0 (11) , 10(A) No pain 9:35:25 62 18 96 0 126/72(117) NSR 0 (11) , 10(A) No pain 9:39:35 64 18 97 0 123/82(93) NSR 0 (11) , 10(A) No pain 9:43:47 60 19 98 0 112/72(94) NSR 0 (11) , 10(A) No pain 9:47:53 62 18 96 0 126/77(90) NSR 0 (11) , 10(A) No pain 9:52:05 58 11 97 0 130/77(96) NSR 0 (11) , 10(A) No pain 9:56:15 60 18 96 0 131/78(95) NSR 0 (11) , 10(A) No pain 10:00:27 63 16 96 0 123/83(105) NSR 0 (11) , 10(A) No pain 10:04:38 63 16 95 0 117/72(99) NSR 0 (11) , 10(A) No pain 10:09:34 68 15 94 0 114/84(105) NSR 0 (11) , 10(A) No pain 10:13:43 67 16 95 0 126/67(107) NSR 0 (11) , 9(A) No pain 10:17:57 72 16 93 0 131/72(106) NSR 0 (11) , 9(A) No pain 10:22:09 75 17 93 0 134/83(91) NSR 0 (11) , 9(A) No pain 10:26:25 76 20 94 0 121/67(111) NSR 0 (11) , 9(A) No pain 10:31:26 75 18 94 0 127/72(102) NSR 0 (11) , 9(A) No pain 10:35:36 77 16 94 0 114/82(102) NSR 0 (11) , 10(A) No pain 10:39:48 82 13 96 0 116/77(104) NSR 0 (11) , 10(A) No pain Medications Time Medication Route Dose Verified Delivered Reason Notes Effectiveness by by 8:40:39 Oxygen NC 8 Fernando Buffie Per physician pt simple l/min Jean Pierre Thorpe RN saturation mask on room air is 91%, pt states drops down to 60's at night due to asbestosis of the lungs. 8:42:00 Lidocaine 2% added 20ml Fernando Fernando for local to vial Jean Pierre Greenfield MD anesthetic field 8:42:14 Heparin Flush added 2 Fernando Fernando used for Bag to bags Jean Pierre Greenfield MD procedure (1000units/500ml field NS) 8:42:24 0.9% NaCl I.V. 100 Fernando Lauraie Per physician ml/hr Jean Pierre Thorpe RN 10:04:51 Versed I.V. 2 mg Fernando Buffie for sedation Jean Pierre Thorpe RN 10:04:56 Fentanyl I.V. 100 Fernando Buffie for sedation mcg Jean Pierre Thorpe RN 10:10:48 Versed I.V. 2 mg Fernando Buffie for sedation Tauth MD Thorpe RN 10:10:54 Fentanyl I.V. 100 Fernando Alicea for sedation mcg Jean Pierre Thorpe RN 10:18:41 Versed I.V. 2 mg Fernando Alicea for sedation Jean Pierre Thorpe RN 10:20:07 Heparin Bolus I.V. 4000 Fernando Alciea for verifi ed units Jean Pierre Thorpe RN anticoagulation with dr greenfield 10:36:23 Plavix P.O. 75 mg Fernando Alicea for Jean Pierre Thorpe RN antiplatelet therapy Procedure Log Time Note 8:14:31 Informed consent obtained and on chart 8:17:01 Admit Source: Other 8:17:03 Arrival Date: 01/30/2019 12:00:00 AM 8:17:08 Insurance Payor : Private health insurance 8:17:17 Patient Height : 73.62 inches 8:17:21 Patient Weight : 253.53 lbs 8:18:13 Lab Result : Hemoglobin 12.5 g/dl 8:18:13 Lab Result : Creatinine 0.9 mg/dl 8:18:13 Lab Result : BUN 20 mg/dl 8:18:49 Diagnostic Cath Status : Urgent 8:19:15 Indication : Chest pain 8:19:31 Procedure Status Urgent Heart Cath (IP). 8:29:09 1) 90+ Normal kidney functon but urine findings or structural abnormalities or genetic trait point to kidney disease. 8:29:13 Maximum allowable contrast dose (3.7 X eGFR X 0.75)249 ml. 8:32:11 Radha Gordon RT(R) sent for patient. Start room use. 8:32:12 Time tracking: Regular hours (M-F 7:00 - 5:00) 8:32:18 Plan of Care:Hemodynamics will remain stable., Cardiac rhythm will remain stable., Comfort level will be maintained., Respiratory function will remain adequate., Patient/ family verbilizes understanding of procedure., Procedure tolerated without complication., Recovers from procedure without complications.. 8:32:23 Patient received from Med II to CCL 2 Alert and oriented. Tansferred to table in Supine position. 8:32:25 Warm blankets applied, and jose hugger turned on for patient comfort. 8:32:26 Correct patient and procedure confirmed by team. 8:32:27 ECG and BP/O2 sat monitors applied to patient. 8:32:38 H&P Date Dictated: 01/29/2019 Within 30 days and on chart., H&P Addendum completed by physician on day of procedure. (MUST COMPLETE FOR ALL OUTPATIENTS). 8:32:40 Pre-procedure instructions explained to patient. 8:32:44 Family in patients room. 8:32:45 Patient NPO since Midnight. 8:33:32 Patient allergic to Other allergycompazine, codeine 8:33:35 Is the patient allergic to Iodine/contrast media? No. 8:33:38 Was the patient premedicated? Yes 8:33:39 Is patient on blood thinner?Yes 8:33:42 ACC The patient was administered the following blood thiners within the last 24 hours: ACCPlavix 8:34:01 Snore? Yes 8:34:11 Stress Test: no; N/A ? 8:34:16 Risk of Mortality: 2.0 8:34:21 Risk of blood transfusion: .2 8:34:25 Risk of JONNY: 1.9 8:38:28 Vital chart was started 8:38:29 Baseline sample Acquired. 8:38:34 Rhythm: sinus rhythm 8:38:36 Full Disclosure recording started 8:38:41 Patient diabetic? No. 8:38:45 Previous problem with sedation/anesthesia? No ? 8:38:48 Sleep apnea? Yes 8:38:49 Deviated septum? No 8:38:49 Opens mouth fully? Yes 8:38:50 Sticks out tongue? Yes 8:38:57 Airway obstruction? Yes asbestosis 8:39:00 Dentures? No ? 8:39:09 Pre procedure: right dorsailis pedis pulse 2+ Normal; easily identifiable; not easily obliterated 8:39:11 Pre procedure: left dorsailis pedis pulse 2+ Normal; easily identifiable; not easily obliterated 8:39:17 IV patent on arrival in right antecubital with 0.9% NaCl at KVO. 8:39:20 Lab results completed and on chart. 8:39:25 Right groin area was prepped with chlora-prep and draped in sterile fashion 8:39:26 Alarms reviewed by R. N. 8:39:27 Sharps counted by scrub and verified by R.N. 8:40:21 Baseline sample Acquired. 8:40:39 Oxygen 8 l/min NC simple mask was administered by Deanne Thorpe RN; Per physician; pt saturation on room air is 91%, pt states drops down to 60's at night due to asbestosis of the lungs. Verbal order read back and verified. 8:42:00 Lidocaine 2% 20ml vial added to field was administered by Fernando Greenfield MD; for local anesthetic; Verbal order read back and verified. 8:42:14 Heparin Flush Bag (1000units/500ml NS) 2 bags added to field was administered by Fernando Greenfield MD; used for procedure; Verbal order read back and verified. 8:42:24 0.9% NaCl 100 ml/hr I.V. was administered by Deanne Thorpe RN; Per physician; Verbal order read back and verified. 8:47:53 STOPCOCK 3-Way Large Bore ([id number]) opened to sterile field. 9:29:32 Zero performed for pressure channel P1 9:29:47 Physician paged 10:04:24 Physician arrived 10:04:25 --------ALL STOP TIME OUT------ 10:04:25 Final Timeout: patient, procedure, and site verified with staff and physician. All members of the team are in agreement. 10:04:28 Right groin site verified by team. 10:04:33 Fire Safety Assessment: A--An alcohol-based skin anteseptic being used preoperatively., C--Open oxygen or nitrous oxide is being used., D--An ESU, laser, or fiber-optic light is being used. 10:04:39 Sedation plan: IV Moderate Sedation Medication:Versed, Fentanyl 10:04:51 Versed 2 mg I.V. was administered by Deanne Thorpe RN; for sedation; Verbal order read back and verified. 10:04:56 Fentanyl 100 mcg I.V. was administered by Deanne Thorpe RN; for sedation; Verbal order read back and verified. 10:09:59 Use device set Femoral Dx 10:10:48 Versed 2 mg I.V. was administered by Deanne Thorpe RN; for sedation; Verbal order read back and verified. 10:10:54 Fentanyl 100 mcg I.V. was administered by Deanne Thorpe RN; for sedation; Verbal order read back and verified. 10:11:11 ACIST Syringe (16046) opened to sterile field. 10:11:12 Bag Decanter (2001S) opened to sterile field. 10:11:12 Medline Cath Pack ([id number]) opened to sterile field. 10:11:13 ACIST Hand Control (18836) opened to sterile field. 10:11:14 ACIST Manifold (49318) opened to sterile field. 10:11:14 DIAGNOSTIC Multipack 5Fr catheter set (NZ9192) opened to sterile field. 10:11:16 Tegaderm 4 x 4 (1626W) opened to sterile field. 10:11:18 SHEATH 5FR Dyer (UOC771) opened to sterile field. 10:11:18 EMERALD Guide Wire (189-154) opened to sterile field. 10:11:23 Procedure started. 10:12:30 Local anesthetic to right femoral artery with Lidocaine 2% by Fernando Greenfield MD.INITIAL ACCESS ONLY 10:12:40 A 5 Fr sheath was inserted into the Right Femoral artery 10:13:43 A MULTIPACK Pigtail 5 Fr catheter was advanced over the wire and used for Procedure. 10:13:52 LV angiography performed. 10:15:00 EF : 50 % 10:16:15 Catheter removed. 10:16:39 A MULTIPACK JL 4.0 5Fr catheter was advanced over the wire and used for . 10:16:59 LCA angiography performed. 10:17:01 Catheter removed. 10:17:07 A MULTIPACK 3DRC 5Fr catheter was advanced over the wire and used for Procedure. 10:18:41 Versed 2 mg I.V. was administered by Deanne Thorpe RN; for sedation; Verbal order read back and verified. 10:18:52 CHOICE PT Extra Support 182cm wire ([id number]) opened to sterile field. 10:18:53 GUIDE 6FR XBLAD 4.0 catheter ([id number]) opened to sterile field. 10:18:54 INFLATOR Merit BasixCompak (OD2088) opened to sterile field. 10:18:55 SHEATH 6FR Dyer (PFE065) opened to sterile field. 10:19:02 RCA angiography performed. 10:19:03 Catheter removed. 10:19:05 Proceeding to intervention. 10:19:13 Sheath upsized to a 6 Fr Short. 10:19:32 6 Fr XBLAD4 guide catheter was inserted over the wire 10:19:52 choice pt ex wire advanced. 10:20:07 Heparin Bolus 4000 units I.V. was administered by Deanne Thorpe RN; for anticoagulation; verified with dr greenfield Verbal order read back and verified. 10:21:24 [place] Verrata Plus pressure wire (02226W) opened to sterile field. 10:21:40 FFR/IFR wire advanced. 10:23:12 Wire advanced across lesion. 10:26:06 mLAD lesion measured at .81 with IFR 10:27:12 Inflate balloon Inflation number: 1 A EUPHORA 3.5 x 30 Balloon ([id number]) was prepped and advanced across the Mid LAD , then inflated to 21 RADHA for 0:08 (min:sec) . 10:27:40 Inflation number: 2 The EUPHORA 3.5 x 30 Balloon ([id number]) was reinflated across the Mid LAD , to 21 RADHA for 0:11 (min:sec) . 10:28:19 Balloon removed over the wire. 10:30:32 ifr removed choice pt ex advanced 10:31:17 GUIDE 6FR EBU 4.0 guide catheter (IH4QUT88) opened to sterile field. 10:31:33 guide catheter exchanged for EBU 10:31:47 pt wire wire advanced. 10:33:36 Place stent Inflation Number: 1 A BATSHEVA RX 3.5 x 22 stent ([id number]) was prepped and advanced across the Mid LAD1 80. The stent was deployed at 23 RADHA for 0:16 (min:sec) . 10:34:17 EXOSEAL 6Fr (EX600) opened to sterile field. 10:34:32 Wire removed. 10:34:32 Guide catheter removed. 10:34:43 Sheath removed intact; hemostasis achieved with Exoseal to the Right Femoral artery. 10:34:46 Procedure ended.(Physican Out) 10:34:58 Fluoroscopy time 07.10 minutes. 10:35:08 Fluoroscopy dose: 1465 mGy 10:35:08 Flurop Dose total: 1465 10:35:14 Dose Area Product 68485 mGy/cm. 10:35:20 Contrast amount:Isovue 300 104ml. 10:35:24 Maximum allowable dose exceeded? No. 10:35:24 Sharps counted by scrub and verified by R.N. 10:35:26 Insertion/operative site no bleeding no hematoma. 10:35:29 Post-op/insertion site Right Femoral artery dressed using a 4 x 4 and Tegaderm. 10:35:30 Post Procedure Pulses reassessed and unchanged 10:35:43 ACT drawn and resulted at 136 seconds. (normal therapeutic range 180-240 seconds). 10:35:52 Post-procedure physical assessment completed. ASA score P 3 - A patient with severe systemic disease as per Fernando Greenfield MD. 10:35:57 Post procedure rhythm: unchanged. 10:36:00 Estimated blood loss: 10 ml 10:36:01 Post procedure instruction explained to patient.Patient verbalizes understanding. 10:36:23 Plavix 75 mg P.O. was administered by Deanne Thorpe RN; for antiplatelet therapy; Verbal order read back and verified. 10:37:07 Procedure type changed to Cath procedure, Diagnostic procedure, LHC, LHC w/Coronaries, FFR/IVUS, FFR Initial, Sedation Charges, Moderate Sedation up to 30 minutes, PCI procedure, Coronary Stent, Coronary Stent Initial 10:37:52 Procedure and supply charges have been captured, reviewed, submitted and are correct. 10:38:10 Procedure and supply charges have been captured, reviewed, submitted and are correct. 10:38:51 Procedure and supply charges have been captured, reviewed, submitted and are correct. 10:42:08 Procedure Complication : No complications 10:42:10 Vital chart was stopped 10:42:13 Operative report dictated upon procedure completion. 10:42:13 See physician's report for complete and final results. 10:42:17 Report given to Pre/Post Procedure Room. 10:42:24 Patient transfered to Pre/Post Procedure Room with Stretcher. 10:42:26 Procedure ended. 10:42:26 Full Disclosure recording stopped 10:42:34 End room use (Document Last) Intervention Summary Intervention Notes Time ActionType Lesion and Equipment Used Action# Pressure Duration Attributes 10:27:12 Inflate Mid LAD EUPHORA 3.5 x 1 21 00:08 balloon 30 Balloon ([id number]) 10:27:40 Reinflate Mid LAD EUPHORA 3.5 x 2 21 00:11 balloon 30 Balloon ([id number]) 10:33:36 Place stent Mid LAD1 BATSHEVA RX 3.5 x 1 23 00:16 22 stent ([id number]) Device Usage Item Name Manufacture Quantity Catalog Number Hospital Part Current Minimal Lot# / Charge Number Stock Stock Serial# Code JOANA 3-Way Cook Medical 1 [id number] 107501 3498 846772 5 Large Bore ([id number]) ACIST Syringe Acist 1 07033 271426 229707 562977 20 (55906) Medical Systems Inc Bag Decanter Microtek 1 2001S 847642 68130 556686 5 (2001S) Medical Inc. Medline Cath Medline 1 [id number] 774812 71049 640670 5 Pack ([id number]) ACIST Hand Acist 1 30044 929617 751749 886513 5 Control Medical (02944) Systems Inc ACIST Manifold Acist 1 72464 305958 614258 426329 5 (74449) Medical Systems Inc DIAGNOSTIC Cardinal 1 VG0493 926824 47144 475879 30 Multipack 5Fr Health catheter set (SK8127) Tegaderm 4 x 4 3M 1 1626W 095112 216053 985109 5 (1626W) SHEATH 5FR Terumo 1 DIO078 192738 535464 638013 5 Dyer (ZYD093) EMERALD Guide Cardinal 1 502-455 065879 871324 694203 5 Wire (502-455) Health MULTIPACK Cardinal 1 828655 5 Pigtail 5 Fr Health catheter MULTIPACK JL Cardinal 1 191825 5 4.0 5Fr Health catheter MULTIPACK 3DRC Cardinal 1 373421 5 5Fr catheter Health CHOICE PT [place] 1 [id number] 645600 172155 840081 5 Extra Support Scientific 182cm wire ([id number]) GUIDE 6FR Cardinal 1 [id number] 548955 446433 440901 3 XBLAD 4.0 Health catheter ([id number]) INFLATOR Merit Merit 1 MN3467 865483 164383 194595 15 [place] Medical (RC6155) SHEATH 6FR Terumo 1 GLZ911 092096 234040 535423 40 Dyer (ILE353) Burr Oak Burr Oak 1 66258B 409463 212529062 722606 5 Verrata Plus pressure wire (04339C) EUPHORA 3.5 x Medtronic 1 [id number] 820837 152840 324797 5 [id number] 30 Balloon ([id number]) GUIDE 6FR EBU Medtronic 1 [id number] 689867 21294 131182 1 4.0 guide catheter ([id number]) BATSHEVA RX 3.5 x Medtronic 1 [id number] 768857 4399645 921410 5 [id number] 22 stent ([id number]) EXOSEAL 6Fr Cardinal 1 EX600 479385 686236 402926 10 (EX600) Health Signature Audit [place] Stage Time Signature Unsigned Intra-Procedure 01/30/2019 Marilin Maldonado 10:38:10 AM RT(R) Intra-Procedure 01/30/2019 Deanne Thorpe RN 10:38:51 AM Intra-Procedure 01/30/2019 Fernando Greenfield 10:42:54 AM Signatures Performing Physician : Signature : Fernando Greenfield MD Date : Time : Monitor : Marilin Maldonado Signature : RT Date : Time : Nurse : Deanne Thorpe RN Signature : Date : Time : [facility] [address] [place] [address]
--- NOTE | ~2019-01-29 | OP ---
PATIENT NAME: SUNIL ALEGRIA MEDICAL RECORD: [id number] :58 LOCATION:[facility] ADMISSION DATE:01/29/19 SURGEON: RODRIGO ARROYO MD DATE OF OPERATION: 01/30/2019 PROCEDURES: 1. PTCA stent LAD. 2. IFR. 3. Left heart catheterization. 4. Selective coronary angiography. 5. Left ventriculogram. INDICATION: Unstable angina and coronary artery disease. PROCEDURE IN DETAIL: After informed consent was obtained and after detailed explanation of risks, benefits as well as alternative therapies, the patient elected to proceed with angiogram and angioplasty. The right femoral area was prepped and draped in normal sterile fashion. Right femoral artery was cannulated via modified Seldinger technique with placement of 6-Estonian sheath. All catheters exchanged through this sheath. FINDINGS: Left ventriculogram was performed in standard 30-degree PLAZA view, reveals good cardiac wall motion, ejection fraction 50% to 55%. SELECTIVE CORONARY ANGIOGRAPHY: 1. Left main showed no significant angiographic disease. 2. Left anterior descending has previously placed stents with up to 80% in-stent restenosis. IFR was abnormal at 0.81. 3. Left circumflex has mild irregularities, but no flow-limiting stenosis. 4. Right coronary has mild irregularities, but no flow-limiting stenosis. PTCA STENT OF THE LAD: The stent used was a 3.5 x 22 mm Boni taken to 23 atmospheres. Result was 0% residual stenosis. OVERALL IMPRESSION: Successful percutaneous transluminal angioplasty stent of the left anterior descending going from 80% in-stent restenosis to 0% residual. TRANSINT:[id number] Voice Confirmation ID: [id number] DOCUMENT ID: [id number] RODRIGO ARROYO MD CC: [id number] DICTATION DATE: 01/30/19 1039 TOOLING SPECIALIST: 01/30/19 1159 ADM IN [facility] [address] [place] [address]
[~2019-01-29 01:34] MED LIST: CYMBALTA60 MG PO; FLOMAX0.4 MG PO; KLONOPIN1 MG PO; MIRAPEX0.5 MG PO; NUGENIX; PLAVIX75 MG PO; TIAZAC/CARDIZE120 MG PO; TRAZODONE HCL150 MG PO
[2019-01-29 02:23] LABS: CREATINE KINASE 98 UL (21-232); TROPONIN-I < 0.017 ng/mL (0.000-0.060)
--- NOTE | 2019-01-29 07:34 | NUR ---
RECEIVED PT IN BED AAOX4 RESP UNLABORED SKIN W/D COLOR WNL C/O CHEST PAIN 10/10 MORPHINE 4 MG GIVEN SIVP FO CHEST PAIN WILL CONTINUE TO MONITOR
[2019-01-29 08:24] LABS: CKMB 1.6 U/L (0.0-3.6); CREATINE KINASE 92 UL (21-232)
[2019-01-29 08:26] LABS: TROPONIN-I < 0.017 ng/mL (0.000-0.060)
[2019-01-29 14:11] LABS: CREATINE KINASE 92 UL (21-232)
[2019-01-29 14:12] LABS: CKMB 1.8 U/L (0.0-3.6)
[2019-01-29 16:27] LABS: BASOPHILS 0.1 % (0-2); EOSINOPHILS 0 % (0-7); HEMATOCRIT 38.2 % (42.0-54.0); HEMOGLOBIN 12.5 g/dL (13.5-17.5); IMMATURE GRANULOCYTES 0.5 % (0-5); LYMPHOCYTES 6.6 % (15-50); MCH 32.1 pg (26.0-34.0); MCHC 32.7 g/dL (31.0-37.0); MCV 97.9 fL (80.0-100.0); MEAN PLATELET VOLUME 8.9 fL (7.4-10.4); MONOCYTES 5.5 % (2-11); NEUTROPHILS 87.3 % (40-80); PLATELET COUNT 176 10x3/uL (130-400); RDW 12.8 % (11.5-14.5)
[2019-01-29 16:37] LABS: CALC OSMOLALITY 279 mosm/kg (275-300); CALCIUM 8.6 mg/dL (8.5-10.1); CARBON DIOXIDE 28.1 mmol/L (21.0-32.0); CHLORIDE - SERUM 102 mmol/L (98-107); CREATININE - SERUM 0.9 mg/dL (0.6-1.3); GLUCOSE 119 mg/dL (74-106); POTASSIUM - SERUM 4.2 mmol/L (3.5-5.1); SODIUM 138 mmol/L (136-145); UREA NITROGEN 20 mg/dL (7-18); eGFR NON AFRICAN AMERICAN > 90 mL/min (90-120)
--- NOTE | 2019-01-29 17:10 | NUR ---
REFUSES TO WEAR SCDs
[2019-01-29 20:00] LABS: CKMB 1.5 U/L (0.0-3.6); CREATINE KINASE 93 UL (21-232)
[2019-01-29 20:01] LABS: TROPONIN-I < 0.017 ng/mL (0.000-0.060)
--- NOTE | 2019-01-29 20:06 | NUR ---
RECEIVED UP IN BED WITH EYES OPEN AND TV ON. ALERT AND ORIENTED X4. UP AD FRANTZ TO BR. O2@ 2 LITERS PER N/C. IV TO RIGHT AC SL. HAS ONE HEARING AIDE TO LEFT EAR AND [place] TO RIGHT EAR. TELEMETRY IN PLACE. DENIES ANY NEEDS OTHER THAN ICE CREAM.
[2019-01-30] VITALS: BP 119/82
[2019-01-30 04:00] VITALS: BP 122/67
[2019-01-30 08:17] VITALS: BP 119/67
--- NOTE | 2019-01-30 08:26 | NUR ---
TELEMETRY SR. PRE-OPS GIVEN. TO TABULATING CLERK BY BED. WILL CONT. PLAN OF CARE.
--- NOTE | 2019-01-30 10:37 | HP ---
PATIENT: SUNIL VIZCAINO MEDICAL RECORD: [id number] ACCOUNT: [id number] LOCATION:[address] : 58 ADMISSION DATE: 01/29/19 PCP: No PCP HISTORY AND PHYSICAL EXAMINATION DIAGNOSES: 1. Unstable angina class IV. 2. Coronary artery disease. 3. Previous multivessel PTCA and stent. 4. Hypertension. 5. Hyperlipidemia. 6. Family history of coronary artery disease. HISTORY OF PRESENT ILLNESS: Mr. Vizcaino presents with a 1-month of increasing angina, progressing to rest pain and class IV anginal symptomatology. It is just like that of his previous angina. A dull aching sensation in the lower anterior left chest. Initially present with any exertion. It has progressed now to the chest heaviness and chest pain at rest with radiation to his left arm. It is just like that of his previous angina. Last cardiac intervention was laser atherectomy, PTCA for in-stent restenosis in September. After that, his chest pain had totally resolved. PHYSICAL EXAMINATION: CONSTITUTIONAL/GENERAL APPEARANCE: Well nourished, well developed, appears stated age. EYES: Lids and conjunctivae noninjected. No discharge. No pallor. ENT: Lips within normal limit. No cyanosis. No pallor. NECK: Carotid arteries, bilateral normal upstroke. No bruits. No thrills. No jugular venous pressure or distention. CERVICAL LYMPH NODES: Nontender. Nonenlarged. THYROID: Not enlarged. No nodules. CARDIOVASCULAR: Precordial exam, nondisplaced. No heaves or pericardial thrills. Rate and rhythm, regular. Heart sounds, normal S1, normal S2. No S3, no gallop, no rub. Systolic murmur, not heard. Diastolic murmur, not heard. RESPIRATORY: Respiratory effort, unlabored. Normal curvature. No thoracic deformity. No chest wall tenderness. Percussion, resonant. Auscultation, clear. No wheezes, no rales, no rhonchi. ABDOMEN: Soft, nondistended, nontender. No abdominal pain, no vomiting and normal appetite. MUSCULOSKELETAL: No joint tenderness, normal gait, normal tone. SKIN: Warm and dry. OVERALL IMPRESSION: Unstable angina in a progressive fashion. He has no acute ST-T abnormalities on his EKG. We will add nitrates and beta-louise to optimize his medical management. If he continues to have chest pain, we will proceed with coronary angiography. TRANSINT:[id number] Voice Confirmation ID: [id number] DOCUMENT ID: [id number] HISTORY AND PHYSICAL [id number] SUNIL VIZCAINO JEFFREY MD at 1037 CC: [id number] DICTATION DATE: 01/29/19 1058 SATELLITE INSTRUCTION FACILITATOR: 01/29/19 1124 ADM IN [place] [address] [place] [address]
--- NOTE | 2019-01-30 10:50 | NUR ---
PT ARRIVED BY STRETCHER. PLACED ON MONITORS. ASSESSMENT COMPLETED. VSS. CALL LIGHT WITHIN REACH. NO FAMILY AT BEDSIDE.
[2019-01-30] MEDS ORDERED: BAYER CHEWABLE81 MG PO (10:59)
--- NOTE | 2019-01-30 11:05 | NUR ---
RIGHT GROIN DRESSING C/D/I. NO S/S OF HEMATOMA NOTED. CALL LIGHT WITHIN REACH. VSS AT THIS TIME.
--- NOTE | 2019-01-30 11:35 | NUR ---
RIGHT GROIN DRESSING C/D/I. NO S/S OF HEMATOMA NOTED. RIGHT PEDAL PULSE PALPABLE. VSS. CALL LIGHT WITHIN REACH. DR. ARROYO ROUNDED AND SPOKE WITH PT.
--- NOTE | 2019-01-30 12:05 | NUR ---
PT RESTING COMFORTABLY. VSS. RIGHT GROIN DRESSING C/D/I. NO S/S OF HEMATOMA NOTED. CALL LIGHT WITHIN REACH.
--- NOTE | 2019-01-30 12:40 | NUR ---
PT RESTING COMFORTABLY. CALLED HIS SIGNIFICANT OTHER AND INFORMED HER OF DISCHARGE TIME. VSS. RIGHT GROIN DRESSING C/D/I. PT STILL IN SUPINE POSITION. SET UP WITH SANDWICH TRAY AND DRINK PER REQUEST. CALL LIGHT WITHIN REACH.
--- NOTE | 2019-01-30 13:30 | NUR ---
RIGHT GROIN DRESSING C/D/I. NO S/S OF HEMATOMA NOTED. CALL LIGHT WITHIN REACH. HEAD OF BED INC TO 30 DEGREES. TOLERATED WELL. ATE SANDWICH AND DENIES NAUSE/PAIN AT THIS TIME.
[2019-01-30 13:33] VITALS: Ht 188 cm; Wt 115.2 kg
--- NOTE | 2019-01-30 14:09 | NUR ---
RIGHT GROIN DRESSING C/D/I. NO S/S OF HEMATOMA NOTED. CALL LIGHT WITHIN REACH. VSS. PIV D/C'D WITH CATH TIP INTACT. TOLERATED WELL. INSTRUCTED TO GET UP AND DRESSED. NO ASSISTANCE NEEDED. PT WILL CALL FOR HELP IF HE NEED ASSISTANCE.
--- NOTE | 2019-01-30 14:15 | NUR ---
DISCUSSED DISCHARGE INSTRUCTIONS WITH PT. HE VOICED UNDERSTANDING.
--- NOTE | 2019-01-30 14:40 | NUR ---
PT AMBULATED TO RESTROOM. VOIDED WITHOUT DIFFICULTY. BACK TO ROOM. WAITING ON RIDE TO ARRIVE. NO S/S OF DISTRESS NOTED. RIGHT GROIN DRESSING C/D/I. NO S/S OF HEMATOMA NOTED.
--- NOTE | 2019-01-30 16:05 | NUR ---
STILL WAITING ON PT'S RIDE TO ARRIVE FROM [place]. HE IS RESTING IN BED WITH HIS EYES CLOSED. EASILY AROUSED FROM SLEEP. ALL BELONGINGS AT BEDSIDE. HEARING AID IN EAR. RIGHT GROIN DRESSING C/D/I. NO S/S OF HEMATOMA NOTED. CALL LIGHT WITHIN REACH.
--- NOTE | 2019-01-30 16:25 | NUR ---
PATIENT TRANSPORTED VIA WHEELCHAIR TO VEHICLE WITH FRIEND DRIVING, ALL BELONGINGS WITH PATIENT.
== END 2019-01-30 16:25 | disposition home or self-care (01) ==
LOC: D.ER 01:34 → D.M2 02:16 → OBSVTIME 02:16 → D.M2 02:16 → D.CLR 02:16
PROVIDERS: Emergency Medicine; ADMIT Internal Medicine Interventional Cardiology; ATTEND Internal Medicine Interventional Cardiology
DX: I25.110 Atherosclerotic heart disease of native coronary artery with unstable angina pectoris (principal); I10 Essential (primary) hypertension; E78.5 Hyperlipidemia, unspecified

== ENCOUNTER 2019-02-16 21:28 | Inpatient (IN) | payer MEDICARE ==
[~2019-02-16] VITALS: Ht 188 cm; Wt 122.7 kg
--- NOTE | ~2019-02-16 | HEMODYNAMI ---
PATIENT:SUNIL ALEGRIA MEDICAL RECORD: [id number] : 58 [facility]ATION[facility] [address] [facility] [id number] ADMISSION DATE: 02/18/19 Generatedon:02/19/201912:14 Patient name: SUNIL ALEGRIA Patient #: [id number] SSN: [id number] : 1960 Date of study: 02/19/2019 Page: Of Hemodynamic Procedure Report Patient Data Patient Demographics Procedure consent was obtained First Name: SUNIL Gender: Male Last Name: RAJI : 1960 Patient #: [id number] Age: 58 year(s) Race: SSN: [id number] Additional ID: [id number] Contact details [address]: [address] [place] [address] State: [place] City: [place] Zip code: [address] Past Medical History Allergies Allergen Reaction Date Comments Reported Other allergy 10/21/2018 codeine, meperidine, metoclopramide, prochlorperazine. Other allergy 01/30/2019 compazine, codeine Other allergy 02/19/2019 codeine, meperidine, metoclopramide, prochlorperazine Admission Admission Data Admission Date: 02/18/2019 Admission Time: 18:46 Arrival Date: 02/19/2019 Arrival Time: 0:00 Admit Source: Other Insurance Payor: Private Room #: D.2121 [facility] insurance [facility] #: [id number] Height (in.): 74 BSA: 2.47 (m2) Height (cm.): 187.96 BMI: 34.74 (kg/m2) Weight (lbs.): 270.55 Weight (kg.): 122.72 Lab Results Lab Result Date: 02/19/2019 Lab Result Time: 0:00 Biochemistry Name Units Result Min Max BUN mg/dl 16 --(---*)-- 7 18 CK-MB ng/ml 1.1 --(-*--)-- 0 3.6 Creatinine mg/dl 0.8 --(-*--)-- 0.6 1.3 eGFR ml/min 90 --(*---)-- 90 120 NONAFRICAN Troponin l ng/ml 0.017 --(-*--)-- 0 0.06 CBC Name Units Result Min Max Hematocrit % 40.5 -*(----)-- 42 54 Hemoglobin g/dl 13.3 -*(----)-- 13.5 17.5 Procedure Procedure Types Cath Procedure Diagnostic Procedure LHC [facility] w/Coronaries FFR/IVUS FFR Initial FFR Additional Sedation Charges Moderate Sedation up to 15 minutes Procedure Description Procedure Date Procedure Date: 02/19/2019 Procedure Start Time: 11:56 Procedure End Time: 12:13 Procedure Staff Name Function Fernando Greenfield MD Performing Physician Bernardo Arreaga RN Nurse Lakesha Mackenzie RT Monitor Marilin Maldonado RT Monitor Mel Bourgeois RT Scrub Indication Increased shortness of breath Chest pain Procedure Data Cath Procedure Fluoroscopy Diagnostic fluoroscopy Total fluoroscopy Time: 3 time: 3 min min Diagnostic fluoroscopy Total fluoroscopy dose: 587 dose: 587 mGy mGy Contrast Material Contrast Material Type Amount (ml) Isovue 370 42 Entry Location Entry Primary Successful Side Size Upsize Upsize Entry Closure Succes sful Closure Location (Fr) 1 (Fr) 2 (Fr) Remarks Device Remarks Femoral Right 6 Fr Exoseal artery Short Estimated blood loss: 10 ml Diagnostic catheters Device Type Used For End Catheter Placement DIAGNOSTIC Pigtail 5Fr Procedure catheter ([id number]) DIAGNOSTIC 3DRC 5Fr Procedure catheter ([id number]) Procedure Complications No complications Procedure Medications Medication Administration Route Dosage Oxygen etCO2 Nasal cannula 2 l/min Heparin Flush Bag added to field 2 bags (1000units/500ml NS) 0.9% NaCl I.V. 100 ml/hr Lidocaine 2% added to field 20 Fentanyl I.V. 50 mcg Versed I.V. 1 mg Fentanyl I.V. 50 mcg Versed I.V. 1 mg Fentanyl I.V. 50 mcg Fentanyl I.V. 50 mcg Hemodynamics Rest BSA: 2.47 (m2) HGB: 13.3 (g/dl) O2 Consumption: Estimated: 279.64 (ml/min) O2 Co nsumption indexed: Estimated:113.21 (ml/min/m) Heart Rate: 59 (bpm) Snapshots Pre Cath Intra NCS Post Cath Vital Signs Time Heart Resp SPO2 etCO2 NIBP (mmHg) Rhythm Pain Sedation Rate (ipm) (%) (mmHg) Status Level (bpm) 11:29:39 56 16 96 180/103(150) NSR 0 (11) 10(A) , No pain 11:33:59 57 17 98 13.6 174/99(146) NSR 0 (11) 10(A) , No pain 11:38:18 62 16 98 9 148/85(109) NSR 0 (11) 10(A) , No pain 11:42:29 65 17 97 32.5 148/89(119) NSR 0 (11) 10(A) , No pain 11:46:44 64 17 95 37 136/85(124) NSR 0 (11) 10(A) , No pain 11:50:55 63 16 93 43.9 136/78(97) NSR 0 (11) 10(A) , No pain 11:55:07 61 16 95 48.4 136/77(105) NSR 0 (11) 9(A) , No pain 11:59:15 63 17 94 19.6 135/86(100) NSR 0 (11) 9(A) , No pain 12:03:27 69 16 94 1.5 123/78(100) NSR 0 (11) 9(A) , No pain 12:07:31 67 17 95 48.3 132/88(115) NSR 0 (11) 9(A) , No pain 12:11:41 66 10 93 48.3 126/86(98) NSR 0 (11) 10(A) , No pain Medications Time Medication Route Dose Verified Delivered Reason Notes Eff ectiveness by by 11:30:59 Oxygen etCO2 2 Fernando Chang Per Nasal l/min Jean Pierre Arreaga RN physician cannula 11:31:08 Heparin Flush added 2 Fernando Chang used for Bag to bags Jean Pierre Arreaga office worker (1000units/500ml field NS) 11:31:15 0.9% NaCl I.V. 100 Fernando Chang Per ml/hr Jean Pierre Arreaga RN physician 11:31:24 Lidocaine 2% added 20ml Fernando Chang for local to vial Jean Pierre Arreaga RN anesthetic field 11:54:28 Fentanyl I.V. 50 Fernando Chang for oj-ann Arreaga RN sedation 11:54:34 Versed I.V. 1 mg Fernando Chang for Jean Pierre Arreaga RN sedation 11:56:04 Fentanyl I.V. 50 Fernando Chang for jo-ann Arreaga RN sedation 11:56:07 Versed I.V. 1 mg Fernando Chang for Jean Pierre Arreaga RN sedation 11:58:51 Fentanyl I.V. 50 Fernando Chang for jo-ann Arreaga RN sedation 12:02:11 Fentanyl I.V. 50 Fernando Ledesmay for jo-ann Arreaga RN sedation Procedure Log Time Note 11:08:41 Diagnostic Cath Status : Urgent 11:09:08 Indication : Increased shortness of breath 11:09:12 Indication : Chest pain 11:18:30 Procedure Status Urgent Heart Cath (IP). 11:18:35 Lakesha Mackenzie RT(R) sent for patient. Start room use. 11:21:20 H&P Date Dictated: 02/16/2019 Within 30 days and on chart.. 11:21:25 Patient NPO since Midnight. 11:22:15 Patient allergic to Other allergycodeine, meperidine, metoclopramide, prochlorperazine 11:22:18 Is the patient allergic to Iodine/contrast media? No. 11:22:27 Lab results completed and on chart. 11:23:04 Lab Result : BUN 16 mg/dl 11:23:04 Lab Result : Creatinine 0.8 mg/dl 11:23:04 Lab Result : CK-MB 1.1 ng/ml 11:23:04 Lab Result : Troponin l 0.017 ng/ml 11:23:04 Lab Result : Hemoglobin 13.3 g/dl 11:23:04 Lab Result : eGFR NONAFRICAN 90 ml/min 11:23:04 Lab Result : Hematocrit 40.5 % 11:23:12 Informed consent obtained and on chart 11:23:26 Time tracking: Call back (After hours or weekends) 11:23:31 Plan of Care:Hemodynamics will remain stable., Cardiac rhythm will remain stable., Comfort level will be maintained., Respiratory function will remain adequate., Patient/ family verbilizes understanding of procedure., Procedure tolerated without complication., Recovers from procedure without complications.. 11:23:38 Patient received from Med II to CCL 2 Alert and oriented. Tansferred to table in Supine position. 11:23:44 Warm blankets applied, and jose hugger turned on for patient comfort. 11:23:44 Correct patient and procedure confirmed by team. 11:23:45 ECG and BP/O2 sat monitors applied to patient. 11:23:49 Pre-procedure instructions explained to patient. 11:23:50 Pre-op teaching completed and patient verbalized understanding. 11:23:52 Family in waiting room. 11:25:05 Arrival Date: 02/19/2019 12:00:00 AM 11:25:06 Admit Source: Other 11:25:10 Patient Height : 74 inches 11:25:14 Patient Weight : 270.55 lbs 11:25:22 Insurance Payor : Private health insurance 11:26:13 Was the patient premedicated? Yes 11:26:17 ACC The patient was administered the following blood thiners within the last 24 hours: ACCAspirin, ACCPlavix 11:26:20 Patient diabetic? No. 11:26:21 If diabetic: On Metformin? N/A 11:26:58 Risk of Mortality: .3 11:27:01 Risk of blood transfusion: .1 11:27:03 Risk of JONNY: 0.5 11:27:06 Alarms reviewed by R. N. 11:27:06 Sharps counted by scrub and verified by R.N. 11:27:09 Right groin area was prepped with chlora-prep and draped in sterile fashion 11:27:16 Pre procedure: right dorsailis pedis pulse 2+ Normal; easily identifiable; not easily obliterated 11:27:18 Patient pain scale 0/10 ?. 11:28:04 IV patent on arrival in right forearm with 0.9% NaCl at O. 11:28:07 ----Pre-sedation anethsthesia assessment.---- 11:28:11 Previous problem with sedation/anesthesia? No ? 11:28:12 Snore? Yes 11:28:13 Sleep apnea? Yes 11:28:15 Deviated septum? No 11:28:17 Opens mouth fully? Yes 11:28:18 Sticks out tongue? Yes 11:28:20 Airway obstruction? No ? 11:28:23 Dentures? No ? 11:28:32 Vital chart was started 11:29:43 Baseline sample Acquired. 11::45 Full Disclosure recording started 11:29:49 Rhythm: sinus rhythm 11:30:35 Use device set Femoral Dx 11:30:38 ACIST Syringe (55808) opened to sterile field. 11:30:39 Bag Decanter (2001S) opened to sterile field. 11:30:39 Medline Cath Pack ([id number]) opened to sterile field. 11:30:41 ACIST Hand Control (79810) opened to sterile field. 11:30:42 ACIST Manifold (43811) opened to sterile field. 11:30:43 Tegaderm 4 x 4 (1626W) opened to sterile field. 11:30:45 SHEATH 5FR Wharton (FNK501) opened to sterile field. 11:30:46 EMERALD Guide Wire (057-124) opened to sterile field. 11:30:59 Oxygen 2 l/min etCO2 Nasal cannula was administered by Bernardo Arreaga RN; Per physician; Verbal order read back and verified. 11:31:08 Heparin Flush Bag (1000units/500ml NS) 2 bags added to field was administered by Bernardo Arreaga RN; used for procedure; Verbal order read back and verified. 11:31:15 0.9% NaCl 100 ml/hr I.V. was administered by Bernardo Arreaga RN; Per physician; Verbal order read back and verified. 11:31:24 Lidocaine 2% 20ml vial added to field was administered by Bernardo Arreaga RN; for local anesthetic; Verbal order read back and verified. 11:39:03 INFLATOR Merit BasixCompak (FC1951) opened to sterile field. 11:39:04 CHOICE PT Extra Support 182cm wire ([id number]) opened to sterile field. 11:39:07 SHEATH 6FR Wharton (ZBH244) opened to sterile field. 11:39:43 Physician paged 11:41:22 Zero performed for pressure channel P1 11:53:16 Physician arrived 11:54:02 --------ALL STOP TIME OUT------ 11:54:03 Final Timeout: patient, procedure, and site verified with staff and physician. All members of the team are in agreement. 11:54:04 Right groin site verified by team. 11:54:08 Fire Safety Assessment: A--An alcohol-based skin anteseptic being used preoperatively., C--Open oxygen or nitrous oxide is being used., D--An ESU, laser, or fiber-optic light is being used. 11:54:12 Physical assessment completed. ASA score P 2 - A patient with mild systemic disease as per Fernando Greenfield MD. 11:54:17 1) 90+ Normal kidney functon but urine findings or structural abnormalities or genetic trait point to kidney disease. 11:54:20 Maximum allowable contrast dose (3.7 X eGFR X 0.75)250 ml. 11:54:24 Sedation plan: IV Moderate Sedation Medication:Versed, Fentanyl 11:54:28 Fentanyl 50 mcg I.V. was administered by Bernardo Arreaga RN; for sedation; Verbal order read back and verified. 11:54:34 Versed 1 mg I.V. was administered by Bernardo Arreaga RN; for sedation; Verbal order read back and verified. 11:55:48 Procedure started. 11:56:04 Fentanyl 50 mcg I.V. was administered by Bernardo Arreaga RN; for sedation; Verbal order read back and verified. 11:56:07 Versed 1 mg I.V. was administered by Bernardo Arreaga RN; for sedation; Verbal order read back and verified. 11:56:20 Local anesthetic to right femoral artery with Lidocaine 2% by Fernando Greenfield MD.INITIAL ACCESS ONLY 11:56:49 A 6 Fr Short sheath was inserted into the Right Femoral artery 11:58:25 A DIAGNOSTIC Pigtail 5Fr catheter ([id number]) was advanced over the wire and used for Procedure. 11:58:37 Injector settings: Ml/sec: 10, Volume: 20, 11:58:39 LV gram done using PLAZA 11:58:51 Fentanyl 50 mcg I.V. was administered by Bernardo Arreaga RN; for sedation; Verbal order read back and verified. 11:59:27 EF : 60 % 11:59:29 Catheter removed. 11:59:35 A DIAGNOSTIC 3DRC 5Fr catheter (136018C) was advanced over the wire and used for Procedure. 12:00:10 RCA angiography performed. 12:00:32 Catheter removed. 12:01:22 GUIDE 6FR XBLAD 4.0 catheter ([id number]) opened to sterile field. 12:01:47 6 Fr xblad 4 guide catheter was inserted over the wire 12:02:06 LCA angiography performed. 12:02:11 Fentanyl 50 mcg I.V. was administered by Bernardo Arreaga RN; for sedation; Verbal order read back and verified. 12:03:25 YourPlace Verrata Plus pressure wire (43854F) opened to sterile field. 12:03:45 FFR/IFR wire advanced. 12:05:50 mCirc lesion measured at .94 with IFR 12:06:22 Wire redirected to Diag. 12:06:37 Diag1 lesion measured at .91 with IFR 12:07:09 Wire removed. 12:07:10 Guide catheter removed. 12:07:29 EXOSEAL 6Fr (EX600) opened to sterile field. 12:07:35 Sheath removed intact; hemostasis achieved with Exoseal to the Right Femoral artery. 12:07:38 Procedure ended.(Physican Out) 12:07:53 Fluoroscopy time 03.00 minutes. 12:07:57 Fluoroscopy dose: 587 mGy 12:07:57 Flurop Dose total: 587 12:08:02 Dose Area Product 88696 mGy/cm. 12:08:13 Contrast amount:Isovue 370 42ml. 12:08:16 Maximum allowable dose exceeded? No. 12:08:22 Post-op/insertion site Right Femoral artery dressed using a 4 x 4 and Tegaderm. 12:08:27 Post right femoral artery:stable, soft, clean and dry 12:08:29 Post Procedure Pulses reassessed and unchanged 12:08:32 Post procedure: right dorsailis pedis pulse 2+ Normal; easily identifiable; not easily obliterated. 12:08:37 Post-procedure physical assessment completed. ASA score P 2 - A patient with mild systemic disease as per Fernando Greenfield MD. 12:08:42 Post procedure rhythm: unchanged. 12:08:46 Estimated blood loss: 10 ml 12:08:47 Post procedure instruction explained to patient.Patient verbalizes understanding. 12:08:53 Patient needs reinforcement of post procedure teaching. 12:10:15 Procedure type changed to Cath procedure, Diagnostic procedure, LHC, LHC w/Coronaries, FFR/IVUS, FFR Initial, FFR Additional, Sedation Charges, Moderate Sedation up to 15 minutes 12:12:43 Procedure and supply charges have been captured, reviewed, submitted and are correct. 12:12:47 Procedure Complication : No complications 12:12:52 Vital chart was stopped 12:12:54 [facility] Findings: MVD- PCI performed (see procedure note) 12:12:57 Operative report dictated upon procedure completion. 12:12:57 See physician's report for complete and final results. 12:13:00 Report given to [facility] II. 12:13:03 Patient transfered to [facility] with Bed. 12:13:06 Procedure ended. 12:13:06 Full Disclosure recording stopped 12:13:21 End room use (Document Last) 12:13:35 End room use (Document Last) 12:13:52 End room use (Document Last) Device Usage Item Name Manufacture Quantity Catalog Number Hospital Part Current [facility] Lot# / Charge Number Stock Stock Serial# Code ACIST Acist 1 34763 609123 105026 565259 20 Syringe Medical (74545) Systems Inc Bag Microtek 1 2001S 348270 44879 545819 5 Decanter Medical Inc. () Medline Medline 1 [id number] 509416 91745 122756 5 Cath Pack ([id number]) ACIST Hand Acist 1 44123 427356 406230 568804 5 Control Medical (66841) Systems Inc ACIST Acist 1 72215 443827 626964 155420 5 Manifold Medical (10794) Systems Inc Tegaderm 4 3M 1 1626W 855435 241295 118355 5 x 4 (1626W) SHEATH 5FR Terumo 1 TDQ979 676637 164440 193544 5 Wharton (LMQ512) [facility] 1 502-455 352494 905094 139464 5 Guide Wire [facility] (502-455) INFLATOR Merit 1 HW7304 551486 045663 769099 15 [facility] Medical BasixCompak (HG1179) CHOICE PT [place] 1 [id number] 150808 542263 255604 5 Extra Scientific Support 182cm wire ([id number]) SHEATH 6FR Terumo 1 XXB047 087663 060567 452470 40 Wharton (FYI766) DIAGNOSTIC Cardinal 1 148963R 023639 624619 451254 5 Pigtail 5Fr Health catheter (824803X) DIAGNOSTIC Cardinal 1 [id number] 220295 537355 216269 9 3DRC 5Fr Health catheter (565403W) GUIDE 6FR Cardinal 1 [id number] 389784 458957 229787 3 XBLAD 4.0 Health catheter (98154468) Aurora Aurora 1 80359N 572713 605649337 390245 5 Verrata Plus pressure wire (41996O) EXOSEAL 6Fr Cardinal 1 EX600 273292 760410 344891 10 (EX600) Health Signature Audit [place] Stage Time Signature Unsigned Intra-Procedure 02/19/2019 Mel Bourgeois 12:13:35 PM RT(R) Intra-Procedure 02/19/2019 Bernardo Arreaga 12:13:52 PM RN Intra-Procedure 02/19/2019 Fernando Greenfield 12:14:06 PM Signatures Performing Physician : Signature : Fernando Greenfield MD Date : Time : Nurse : Bernardo Arreaga RN Signature : Date : Time : Monitor : Lakesha Mackenzie Signature : RT Date : Time : Monitor : Marilin Maldonado Signature : RT Date : Time : [facility] [address] [facility] [address]
--- NOTE | ~2019-02-16 | OP ---
PATIENT NAME: SUNIL ALEGRIA MEDICAL RECORD: [id number] :58 LOCATION:D.M2 D.2121 ADMISSION DATE:02/18/19 SURGEON: RODRIGO ARROYO MD DATE OF OPERATION: 02/19/2019 PROCEDURES: 1. Left heart catheterization. 2. Selective coronary angiography. 3. Left ventriculogram. 4. IFR LAD and circumflex. PROCEDURE IN DETAIL: After informed consent was obtained and after a detailed description of the risks, benefits as well as alternative therapies, the patient elected to proceed with angiogram and angioplasty. The right femoral area was prepped and draped in normal sterile fashion. Right femoral artery was cannulated via modified Seldinger technique with placement of 6-Bengali sheath. All catheters exchanged through this sheath. FINDINGS: Left ventriculogram was normal standard 30-degree PLAZA view, reveals good cardiac wall motion throughout all segments. Overall ejection fraction estimated at 50%. SELECTIVE CORONARY ANGIOGRAPHY: 1. The left main is with no significant angiographic disease. 2. The left anterior descending has stents in the LAD and LAD diagonal. Stents in the LAD are widely patent. There is a questionable stenosis of the LAD diagonal; however, IFR was normal. 3. The left circumflex has a questionable area of stenosis in the mid vessel; however, IFR was normal. 4. The right coronary has mild irregularities, but no flow-limiting stenosis. OVERALL IMPRESSION: Wide patency of the previously placed stents in the LAD and LAD diagonal. No significant disease throughout the remainder of the coronary anatomy. Continue medical management of the coronary artery disease and cardiac risk factors. TRANSINT:[id number] Voice Confirmation ID: [id number] DOCUMENT ID: [id number] RODRIGO ARROYO MD CC: [id number] DICTATION DATE: 02/19/19 1210 FOREIGN EXCHANGE CLERK: 02/19/19 1519 DIS IN 02/19/19 [facility] [address] [place] [address]
--- NOTE | ~2019-02-16 | EC ---
PATIENT:SUNIL ALEGRIA DATE OF SERVICE: 02/18/19 SEX: M MEDICAL RECORD: [id number] DATE OF : 58 LOCATION:D. D.212 AGE OF PATIENT: 58 ADMISSION DATE: 02/18/19 REFERRING PHYSICIAN: INTERPRETING PHYSICIAN: RODRIGO GREENFIELD MD ECHOCARDIOGRAM REPORT ECHO CHARGES 4 ECHO COMPLETE Date: 02/18/19 CLINICAL DIAGNOSIS: ANGINA ECHOCARDIOGRAPHIC MEASUREMENTS (adult normal given) AC root (d.<3.7cm) 3.0 cm LV Septum d (<1.2 cm> 0.8 cm Valve Excursion 2.4 cm LV Septum (systole) 1.6 cm Left Atria (s.<4.0cm> 4.5 cm LVPW d(<1.2cm) 1.9 cm RV (d.<2.3cm) 3.7 cm LVPW (sytole) 2.0 cm LV diastole(<5.6CM) 5.4 cm MV E-F(>70mm/sec) cm LV systole 4.9 cm LVOT Diameter 2.2 cm MV exc.(>10mm) cm Est.ejection fraction (50-75%) % DOPPLER: LVIT cm/sec A 94 cm/sec E 79 cm/sec LA cm/sec RVSP 25.5 mmHg LVOT 89 cm/sec AOP1/2T m/s Asc. Ao 119 cm/sec RVOT 67 cm/sec RA cm/sec PA 82 cm/sec AV Gradient Peak 5.7 mmHg AV Mean 2.9 mmHg AV Area 3.4 cm MV Gradient Peak 3.2 mmHg MV Mean 1.3 mmHg MV Area cm COMMENTS: Land Agent: Juan F [facility] Paving Contractor: 1 Dr. Greenfield TAPE# PACS Pericardial Effusion N DATE OF SERVICE: 02/18/2019 ECHOCARDIOGRAM FINDINGS: 1. Left ventricular chamber size is within normal limits. Left ventricular systolic function is normal. Overall ejection fraction estimated at 55%. 2. Left atrium is enlarged at 4.5 cm. Right atrium and right ventricle chamber sizes are as well mildly dilated. 3. Valvular structures have normal structure and motion. ECHOCARDIOGRAM REPORT [id number] SUNIL ALEGRIA 4. Doppler interrogation reveals no significant valvular insufficiency or stenosis. 5. No evidence of pericardial effusion or left ventricular thrombus. Pulmonary systolic pressure is normal estimated at 25 mmHg. TRANSINT:[id number] Voice Confirmation ID: [id number] DOCUMENT ID: [id number] RODRIGO GREENFIELD MD CC: [id number] DICTATION DATE: 02/19/191224 PROPERTY CLAIM REP: 02/19/19 1538 ADM IN [place] [address] [place] [address]
--- NOTE | ~2019-02-16 | DS ---
PATIENT:SUNIL VIZCAINO :58 MEDICAL RECORD: [id number] DISCHARGE SUMMARY ADMISSION DATE: 02/18/19 DISCHARGE DATE: 02/19/19 DISCHARGE DIAGNOSES: 1. Chest pain. 2. Normal cardiac catheterization this admission. 3. Hypertension. 4. Hyperlipidemia. 5. Previous percutaneous transluminal coronary angioplasty and stent. HOSPITAL COURSE: Mr. Vizcaino presents with ongoing chest pain; however, cardiac catheterization with IFR of the LAD and circumflex was normal and was discharged home with no change in the medication. We will follow up with [facility] as previously scheduled. TRANSINT:[id number] Voice Confirmation ID: [id number] DOCUMENT ID: [id number] RODRIGO ARROYO MD CC: [id number] DICTATION DATE: 02/19/19 121 ENVELOPE SEALING MACHINE OPERATOR: 02/19/192221 DIS IN 02/19/19 [facility] [address] [place] [address]
[~2019-02-16 21:28] MED LIST changes: +BAYER CHEWABLE81 MG PO
[2019-02-16 21:55] LABS: BASOPHILS 0.3 % (0-2); EOSINOPHILS 1.6 % (0-7); HEMATOCRIT 41.9 % (42.0-54.0); HEMOGLOBIN 13.9 g/dL (13.5-17.5); IMMATURE GRANULOCYTES 0.3 % (0-5); LYMPHOCYTES 31.9 % (15-50); MCH 32.3 pg (26.0-34.0); MCHC 33.2 g/dL (31.0-37.0); MCV 97.2 fL (80.0-100.0); MEAN PLATELET VOLUME 8.9 fL (7.4-10.4); MONOCYTES 8.5 % (2-11); NEUTROPHILS 57.4 % (40-80); PLATELET COUNT 198 10x3/uL (130-400); RBC 4.31 10x6/uL (4.20-6.10); RDW 12.5 % (11.5-14.5); WBC 7.3 10x3/uL (4.8-10.8)
[2019-02-16 22:02] LABS: CALC OSMOLALITY 278 mosm/kg (275-300); CALCIUM 8.3 mg/dL (8.5-10.1); CARBON DIOXIDE 28.9 mmol/L (21.0-32.0); CHLORIDE - SERUM 105 mmol/L (98-107); CREATININE - SERUM 0.9 mg/dL (0.6-1.3); GLUCOSE 85 mg/dL (74-106); POTASSIUM - SERUM 3.8 mmol/L (3.5-5.1); SODIUM 139 mmol/L (136-145); UREA NITROGEN 19 mg/dL (7-18); eGFR NON AFRICAN AMERICAN > 90 mL/min (90-120)
[2019-02-16 22:03] LABS: APTT 28.9 SECONDS (22.8-39.4); INR 1.03 (0.85-1.17)
[2019-02-16 22:04] LABS: D-DIMER-QUANTITATIVE 0.45 ug/mLFEU (0.20-0.54)
[2019-02-16 22:19] LABS: ALBUMIN 3.5 g/dL (3.4-5.0); ALKALINE PHOSPHATASE 120 U/L (46-116); ALT (SGPT) 25 U/L (10-68); BILIRUBIN - TOTAL 0.28 mg/dL (0.2-1.3); CKMB 0.9 U/L (0.0-3.6); CREATINE KINASE 81 UL (21-232); LIPASE 91 U/L (73-393); TROPONIN-I < 0.017 ng/mL (0.000-0.060)
[2019-02-17 00:10] VITALS: BP 142/99; BMI 34.9
[2019-02-17 04:00] VITALS: BP 155/97
[2019-02-17 05:26] LABS: BASOPHILS 0.3 % (0-2); EOSINOPHILS 2.4 % (0-7); HEMATOCRIT 40.5 % (42.0-54.0); HEMOGLOBIN 13.3 g/dL (13.5-17.5); IMMATURE GRANULOCYTES 0.7 % (0-5); LYMPHOCYTES 33.9 % (15-50); MCH 31.8 pg (26.0-34.0); MCHC 32.8 g/dL (31.0-37.0); MCV 96.9 fL (80.0-100.0); MEAN PLATELET VOLUME 9.1 fL (7.4-10.4); MONOCYTES 7.6 % (2-11); NEUTROPHILS 55.1 % (40-80); PLATELET COUNT 161 10x3/uL (130-400); RBC 4.18 10x6/uL (4.20-6.10); RDW 12.5 % (11.5-14.5); WBC 5.8 10x3/uL (4.8-10.8)
[2019-02-17 06:02] LABS: ALBUMIN 3.3 g/dL (3.4-5.0); ALKALINE PHOSPHATASE 101 U/L (46-116); ALT (SGPT) 20 U/L (10-68); BILIRUBIN - TOTAL 0.29 mg/dL (0.2-1.3); CALC OSMOLALITY 277 mosm/kg (275-300); CALCIUM 8.2 mg/dL (8.5-10.1); CARBON DIOXIDE 26.7 mmol/L (21.0-32.0); CHLORIDE - SERUM 105 mmol/L (98-107); CKMB 1.1 U/L (0.0-3.6); CREATINE KINASE 78 UL (21-232); CREATININE - SERUM 0.8 mg/dL (0.6-1.3); GLUCOSE 88 mg/dL (74-106); POTASSIUM - SERUM 3.7 mmol/L (3.5-5.1); PROTEIN - SERUM 6.4 g/dL (6.4-8.2); SODIUM 139 mmol/L (136-145); TROPONIN-I < 0.017 ng/mL (0.000-0.060); UREA NITROGEN 16 mg/dL (7-18); eGFR NON AFRICAN AMERICAN > 90 mL/min (90-120)
--- NOTE | 2019-02-17 07:10 | NUR ---
REPORT RECEIVED FROM SLIDE FORMING MACHINE OPERATOR AND PATIENT CARE ASSUMED. PATIENT LAYING IN BED ON BACK AWAKE, ALERT AND ORIENTED X 4. PATIENT DENIES ANY NEEDS OR PAIN. PATIENT IS STABLE AND VSS. WILL CONTINUE WITH PLAN OF CARE. SR UP X 2 BED IN LOW POSITION AND CALL LIGHT IN REACH.
--- NOTE | 2019-02-17 08:15 | NUR ---
CALLED TO PATIENTS ROOM. PATIENT COMPLAINS OF PAIN IN CHEST AREA. PATIENT STATES IT HURTS WHEN HE BREATHES. PATIENT REQUEST MORPHINE AND TYLENOL. PATIENT MEDICATED PER MAR . WILL CONTINUE TO MONITOR. SR UP X 2 BED IN LOW POSITION AND CALL LIGHT IN REACH.
[2019-02-17 08:56] VITALS: Ht 188 cm; Wt 122.7 kg
[2019-02-17 09:48] VITALS: BP 120/69
--- NOTE | 2019-02-17 15:18 | NUR ---
PATIENT UNCHANGED. WILL CONTINUE TO MONITOR. SR UP X 2 BED IN LOW POSITION AND CALL LIGHT IN REACH.
[2019-02-17 17:16] VITALS: BP 143/92
[2019-02-17 17:27] VITALS: BP 165/99
--- NOTE | 2019-02-17 18:42 | NUR ---
PATIENT RESTING COMFORTABLY . NO CHNGES
--- NOTE | 2019-02-17 19:30 | NUR ---
REPORT AND INITIAL ROUND COMPLETED. PT RESTING IN BED WITH C/O ONGOING PAIN AND WANTING TO KNOW WHEN HIS NEXT DOSE OF PAIN MEDICATION CAN BE RECIEVED. LAST DOSE WAS GIVEN AT 1700. EXPLAINED NEXT DOSE AT 2100. PT GAVE LENGTHY CONVERSATION ABOUT HOW IS IS NOT SATISFIED WITH HIS LUNG DOCTOR, THAT HE FEELS HE HAS "BLACK LUNGS" AND THE BOTTOM OF HIS HEART IS "BLACK" AND HE KNOWS THIS FROM [facility]. HE STATES HE HAS MESOTHILIOAMA AND ALSO LIST MANY OTHER DIAGNOSIS. CPOC. ADMINISTER PAIN MEDICATIONS PER MD ORDERS.
[2019-02-17 20:30] VITALS: BP 153/93
--- NOTE | 2019-02-17 21:15 | NUR ---
MEDICATED WITH MORHINE 4MG SIVP FOR PAIN "HORRIBLE 10". SOON MED BEING ADMINISTERED SIVP, PT ANSWERED PHONE CALL AND WAS TELLING SIGNIFICANT OTHER "WOOHOO, GETTING ME SOME PAIN MEDS NOW!" AND HAD A VERY ANIMATED CONVERSATION ON PHONE.
--- NOTE | 2019-02-17 23:00 | NUR ---
PT GOT UP AND TOOK A SHOWER WITHOUT CALLING FOR ASSISTANCE. THIS WAS AFTER HE TOLD GLASS TECHNICIAN AT BEGINNING OF SHIFT THAT HE CAN BARELY WALK DUE TO PAIN AND DEBILITY. NOW PT IS UP AND ABOUT WITH STEADY GAIT.
[2019-02-18 00:30] VITALS: BP 160/90
--- NOTE | 2019-02-18 05:30 | NUR ---
PT REQUESTING PAIN MED. IV MORPHINE/ZOFRAN ADMINISTERED. PT NOW RESTING
--- NOTE | 2019-02-18 06:41 | NUR ---
PT RESTING IN BED WITH NO DISTRESS. NO CHANGE FROM INITIAL SHIFT ASSESSMENT. CPOC. REPORT TO ONCOMING SHIFT.
[2019-02-18 06:42] VITALS: BP 120/67
[2019-02-18 08:06] VITALS: BP 135/83
--- NOTE | 2019-02-18 11:31 | HP ---
PATIENT: SUNIL VIZCAINO MEDICAL RECORD: [id number] ACCOUNT: [id number] LOCATION:[address] : 58 ADMISSION DATE: 02/16/19 PCP: No PCP HISTORY AND PHYSICAL EXAMINATION ADMITTING DIAGNOSES: 1. Pleuritic chest pain. 2. Coronary artery disease, recent. 3. Recent PTCA and stent. 4. Hypertension. 5. Hyperlipidemia. 6. Shortness of breath, dyspnea on exertion. HISTORY OF PRESENT ILLNESS: Mr. Vizcaino is known to us with a past history of coronary artery disease, recent PTCA and stent of his LAD, who presents with chest pain different than that of his angina. This is a pleuritic type chest pain, worse with a deep inspiration. This was there with his angina as well and has been there for a number of weeks. It is getting worse. He is short of breath. He has been on multiple antibiotics as an outpatient. He has not been on steroids as an outpatient for this. His anginal chest discomfort was resolved after the PTCA and stent of his LAD last week. His troponin is normal. EKG is with no changes. PHYSICAL EXAMINATION: CONSTITUTIONAL/GENERAL APPEARANCE: Well nourished, well developed, appears stated age. EYES: Lids and conjunctivae noninjected. No discharge. No pallor. ENT: Lips within normal limit. No cyanosis. No pallor. NECK: Carotid arteries, bilateral normal upstroke. No bruits. No thrills. No jugular venous pressure or distention. CERVICAL LYMPH NODES: Nontender. Nonenlarged. THYROID: Not enlarged. No nodules. CARDIOVASCULAR: Precordial exam, nondisplaced. No heaves or pericardial thrills. Rate and rhythm, regular. Heart sounds, normal S1, normal S2. No S3, no gallop, no rub. Systolic murmur, not heard. Diastolic murmur, not heard. RESPIRATORY: Respiratory effort, unlabored. Normal curvature. No thoracic deformity. No chest wall tenderness. Percussion, resonant. Auscultation, clear. No wheezes, no rales, no rhonchi. ABDOMEN: Soft, nondistended, nontender. No abdominal pain, no vomiting and normal appetite. MUSCULOSKELETAL: No joint tenderness, normal gait, normal tone. SKIN: Warm and dry. OVERALL IMPRESSION: Pleuritic chest pain. He has been told in the past he has asbestosis. We will have pulmonary see him. Start him on steroids and leave any further antibiotics to pulmonary. TRANSINT:[id number] Voice Confirmation ID: [id number] DOCUMENT ID: [id number] HISTORY AND PHYSICAL [id number] SUNIL VIZCAINO, RODRIGO DIETZ at 1131 CC: [id number] DICTATION DATE: 02/17/19857 RADIATOR MECHANIC: 02/17/19 0933 ADM IN [place] [id number] [place] [id number]
[2019-02-18 11:33] VITALS: BP 126/75
--- NOTE | 2019-02-18 12:00 | NUR ---
IV AND TELEMETRY DCD. DC PLANS GIVEN. UNDERSTANDING VOICED.
--- NOTE | 2019-02-18 13:02 | NUR ---
IV DCD. DRSG CHANGED TO LEFT ARM. SUTURES INTACT. WILL CONT. PLAN OF CARE.
--- NOTE | 2019-02-18 14:37 | NUR ---
CONSENTS SIGNED FOR [facility]. WILL CONT. PLAN OF CARE.
[2019-02-18 15:31] VITALS: BP 152/88
--- NOTE | 2019-02-18 20:27 | NUR ---
REPORT AND INITIAL ROUNDS COMPLETED. PT RESTING IN BED WITH AT BEDSIDE. ALERT/ORIENTED. VOICING NO NEEDS. SALINE LOCK TO RIGHT A/C. LAST HAD IV PAIN MED AT 1730. CPOC. CALL LIGHT IN REACH.
[2019-02-18 20:30] VITALS: BP 154/89
[2019-02-19 00:26] VITALS: BP 127/73
--- NOTE | 2019-02-19 02:20 | NUR ---
PT MEDICATED EARLIER FOR GENERALIZED PAIN "ALL OVER" WITH MORPHINE 4MG SIVP AND IV ZOFRAN 4MG SIVP. AT BEDSIDE. PT NPO FOR AM CATH PER DR ARROYO.
--- NOTE | 2019-02-19 07:20 | NUR ---
RECIEVE REPORT. ALERT AND ORIENTED X4. RESTING IN BED. SPOUSE AT BEDSIDE. REQUESTING PAIN MEDICATION. CONTINUE PAIN MANAGEMENT ORDERED. CONSENTS FOR TEACHER SELECTION SPECIALIST SIGNED ON CHART. CONTINUE PLAN OF CARE AND SAFETY PRECAUTIONS.
[2019-02-19 10:28] VITALS: BP 127/73
--- NOTE | 2019-02-19 11:22 | NUR ---
PREOP FOR CHIMNEY BUILDER HELPER COMPLETE. TAKEN TO CHIMNEY BUILDER HELPER VIA BED.
--- NOTE | 2019-02-19 12:12 | PN ---
PATIENT:SUNIL VIZCAINO MEDICAL RECORD: [id number] LOCATION:D. D.212 ADMISSION DATE: 02/18/19 PROGRESS NOTE DATE OF SERVICE: 02/18/2019 Mr. Vizcaino has continued to have chest discomfort. Initially yesterday, this was atypical discomfort unlike his previous angina and now overnight he has had chest pain like his previous angina. Today, he is having chest pain like his previous angina as well. In reviewing his cardiac catheterization film feel there is disease of the circumflex that is possibly significant. We will perform repeat coronary angiography in the a.m. with IFR of the circumflex and possible intervention of the circumflex and to re-look at LAD and LAD diagonal for possible cardiac and anatomic etiology of his chest pain that is typical for angina at this time. TRANSINT:[id number] Voice Confirmation ID: [id number] DOCUMENT ID: [id number] RODRIGO ARROYO MD at 1212 CC: [id number] DICTATION DATE: 02/18/19 1138 INTERNET CONSULTANT: 02/18/192126 ADM IN [facility] [address] [place] [address]
--- NOTE | 2019-02-19 12:29 | NUR ---
ARRIVE BACK TO ROOM VIA BED FROM PRACTICE NURSE. BP-130/75, HR-64 SINUS RYTHM, O2-95% RA. RT GROIN DRESSING CLEAN DRY INTACT. FREE FROM BLEEDING. FREE FROM HEMATOMA. PULSE PALPABLE BILATERALLY. SPOUSE AT BEDSIDE. ENCOURAGE TO REMAIN FLAT FOR NEXT 3HOURS DUE TO INCREASE RISK FOR BLEEDING. CONTINUE PLAN OF CARE AND SAFETY PRECAUTIONS.
[2019-02-19] MEDS ORDERED: HYDROCODON-ACE1 EA10 PO (12:39)
[2019-02-19] MEDS ORDERED: BAYER CHEWABLE81 MG PO (12:42)
--- NOTE | 2019-02-19 12:54 | NUR ---
PT'S HOME MED LIST DID NOT HAVE ASA [address] ARROYO PT SHOULD BE TAKING. ADDED TO DISCHARGE MEDICATION LIST.
--- NOTE | 2019-02-19 16:17 | NUR ---
ALERT AND ORIENTED X4. SITTING UP IN BED. RT GROIN DRESSING CLEAN DRY INTACT. FREE FROM HEMATOMA. FREE FROM BLEEDING. DISCHARGE INSTRUCTIONS GIVEN VERBALLY AND WRITTEN. DISCHARGE PAPERS SIGNED ON CHART. DC RT AC IV TIP INTACT. ESCORT TO RIDE VIA WHEELCHAIR. REMAINS FREE FROM INJURY. WRITTEN PRESCRIPTION FOR [facility]CO PROVIDED.
== END 2019-02-19 16:19 | disposition home or self-care (01) | DRG 287 ==
LOC: D.ER 21:28 → OBSVTIME 22:51 → D.M2 22:51
PROVIDERS: Family Medicine; ADMIT Internal Medicine Interventional Cardiology; ATTEND Internal Medicine Interventional Cardiology
PROC: B2151ZZ Fluoroscopy of Left Heart using Low Osmolar Contrast (ICD-10-PCS; 2019-02-19)
PROC: 4A023N7 Measurement of Cardiac Sampling and Pressure, Left Heart, Percutaneous Approach (ICD-10-PCS; 2019-02-19)
PROC: 4A033BC Measurement of Arterial Pressure, Coronary, Percutaneous Approach (ICD-10-PCS; 2019-02-19)
PROC: B2111ZZ Fluoroscopy of Multiple Coronary Arteries using Low Osmolar Contrast (ICD-10-PCS; principal; 2019-02-19 12:00)
DX: R07.89 Other chest pain (principal); J44.1 Chronic obstructive pulmonary disease with (acute) exacerbation; E78.5 Hyperlipidemia, unspecified; I10 Essential (primary) hypertension; I25.10 Atherosclerotic heart disease of native coronary artery without angina pectoris; K21.9 Gastro-esophageal reflux disease without esophagitis; N40.0 Benign prostatic hyperplasia without lower urinary tract symptoms; D64.9 Anemia, unspecified; F32.9 Major depressive disorder, single episode, unspecified; Z87.891 Personal history of nicotine dependence

== ENCOUNTER 2019-03-20 15:40 | Emergency (ER) | payer MEDICARE ==
[~2019-03-20] VITALS: Ht 188 cm; Wt 125.0 kg
[~2019-03-20 15:40] MED LIST changes: +HYDROCODON-ACE1 EA10 PO
[2019-03-20 15:46] VITALS: Ht 188 cm; Wt 125.0 kg
[2019-03-20] MEDS ORDERED: ALBUTEROL SULF8.5 GM INH (17:11)
[2019-03-20] MEDS ORDERED: CYCLOBENZAPRINE10 MG PO (17:12)
[2019-03-20] MEDS ORDERED: ZPAK PO (17:13)
[2019-03-20 18:40] VITALS: BP 164/99
== END 2019-03-20 18:42 | disposition home or self-care (01) ==
LOC: D.ER 15:40
DX: F07.81 Postconcussional syndrome (principal); S16.1XXA Strain of muscle, fascia and tendon at neck level, initial encounter; S09.90XA Unspecified injury of head, initial encounter; I25.10 Atherosclerotic heart disease of native coronary artery without angina pectoris; J32.9 Chronic sinusitis, unspecified; W22.8XXA Striking against or struck by other objects, initial encounter; Y93.9 Activity, unspecified; Y92.9 Unspecified place or not applicable

== ENCOUNTER 2019-04-25 17:54 | Inpatient (IN) | payer MEDICARE ==
[~2019-04-25] VITALS: Ht 188 cm; Wt 130.2 kg
[~2019-04-25 17:54] MED LIST changes: +ALBUTEROL SULF8.5 GM INH; +CARDIZEM CD240 MG PO; +CATAPRES0.1 MG PO; +CYCLOBENZAPRINE10 MG PO; +ZPAK PO
[2019-04-25 18:34] LABS: BASOPHILS 0.5 % (0-2); EOSINOPHILS 2.5 % (0-7); HEMATOCRIT 41.6 % (42.0-54.0); HEMOGLOBIN 13.6 g/dL (13.5-17.5); IMMATURE GRANULOCYTES 0.2 % (0-5); LYMPHOCYTES 34.3 % (15-50); MCH 31.9 pg (26.0-34.0); MCHC 32.7 g/dL (31.0-37.0); MCV 97.4 fL (80.0-100.0); MEAN PLATELET VOLUME 8.8 fL (7.4-10.4); MONOCYTES 7.5 % (2-11); RBC 4.27 10x6/uL (4.20-6.10); RDW 12.8 % (11.5-14.5); WBC 6.4 10x3/uL (4.8-10.8)
[2019-04-25 18:44] LABS: PLATELET COUNT 198 10x3/uL (130-400)
[2019-04-25 18:50] LABS: CALC OSMOLALITY 278 mosm/kg (275-300); CALCIUM 8.7 mg/dL (8.5-10.1); CARBON DIOXIDE 29.5 mmol/L (21.0-32.0); CHLORIDE - SERUM 103 mmol/L (98-107); CREATININE - SERUM 1.2 mg/dL (0.6-1.3); GLUCOSE 118 mg/dL (74-106); POTASSIUM - SERUM 3.5 mmol/L (3.5-5.1); SODIUM 140 mmol/L (136-145); UREA NITROGEN 9 mg/dL (7-18); eGFR NON AFRICAN AMERICAN 66 mL/min (90-120)
[2019-04-25 19:00] LABS: ALBUMIN 3.8 g/dL (3.4-5.0); ALKALINE PHOSPHATASE 107 U/L (30-120); ALT (SGPT) 44 U/L (10-68); AMYLASE - SERUM 47 U/L (25-115); BILIRUBIN - TOTAL 0.28 mg/dL (0.2-1.3); LIPASE 205 U/L (73-393); PROTEIN - SERUM 6.9 g/dL (6.4-8.2); TROPONIN-I < 0.017 ng/mL (0.000-0.060)
[2019-04-25 19:16] LABS: APTT 29.2 SECONDS (22.8-39.4); INR 1.04 (0.85-1.17); PROTIME 13.6 SECONDS (11.6-15.0)
[2019-04-25 20:38] LABS: BILIRUBIN NEGATIVE (NEGATIVE); GLUCOSE NEGATIVE (NEGATIVE); KETONE NEGATIVE (NEGATIVE); NITRITE NEGATIVE (NEGATIVE); UROBILINOGEN NORMAL (NORMAL)
[2019-04-25 21:00] VITALS: BP 149/95
[2019-04-25 21:04] LABS: UDS - AMPHET NEGATIVE QUAL (NEGATIVE); UDS - BARB NEGATIVE QUAL (NEGATIVE); UDS - BENZO NEGATIVE QUAL (NEGATIVE); UDS - COCAINE NEGATIVE QUAL (NEGATIVE); UDS - OPIATE POSITIVE QUAL (NEGATIVE); UDS - PCP NEGATIVE QUAL (NEGATIVE); UDS - THC NEGATIVE QUAL (NEGATIVE)
[2019-04-26] VITALS: BP 154/97
[2019-04-26 01:22] VITALS: BP 154/97; BMI 36.9
[2019-04-26 04:00] VITALS: BP 115/77
[2019-04-26 07:28] LABS: BASOPHILS 0.4 % (0-2); EOSINOPHILS 2.8 % (0-7); HEMATOCRIT 39.3 % (42.0-54.0); HEMOGLOBIN 12.7 g/dL (13.5-17.5); IMMATURE GRANULOCYTES 0.2 % (0-5); LYMPHOCYTES 33.8 % (15-50); MCH 31.8 pg (26.0-34.0); MCHC 32.3 g/dL (31.0-37.0); MCV 98.3 fL (80.0-100.0); MEAN PLATELET VOLUME 8.7 fL (7.4-10.4); MONOCYTES 10.6 % (2-11); NEUTROPHILS 52.2 % (40-80); PLATELET COUNT 177 10x3/uL (130-400); RDW 12.8 % (11.5-14.5); WBC 5.4 10x3/uL (4.8-10.8)
[2019-04-26 07:37] LABS: ALBUMIN 3.6 g/dL (3.4-5.0); ALKALINE PHOSPHATASE 98 U/L (30-120); ALT (SGPT) 38 U/L (10-68); BILIRUBIN - TOTAL 0.34 mg/dL (0.2-1.3); CALC OSMOLALITY 279 mosm/kg (275-300); CALCIUM 8.3 mg/dL (8.5-10.1); CHLORIDE - SERUM 105 mmol/L (98-107); CREATININE - SERUM 0.9 mg/dL (0.6-1.3); GLUCOSE 91 mg/dL (74-106); POTASSIUM - SERUM 3.5 mmol/L (3.5-5.1); PROTEIN - SERUM 6.4 g/dL (6.4-8.2); SODIUM 141 mmol/L (136-145); UREA NITROGEN 9 mg/dL (7-18); eGFR NON AFRICAN AMERICAN > 90 mL/min (90-120)
[2019-04-26 07:42] LABS: AMYLASE - SERUM 28 U/L (25-115); LIPASE 39 U/L (73-393)
[2019-04-26 08:04] VITALS: BP 122/75
[2019-04-26 13:16] VITALS: BP 136/88
[2019-04-26 13:29] VITALS: BMI 36.8
[2019-04-26] MEDS ORDERED: TRIBENZOR 40-51 EAC1 PO (17:46)
[2019-04-26 21:15] VITALS: BP 144/83
[2019-04-27 01:44] VITALS: BP 93/56
[2019-04-27 05:13] LABS: BASOPHILS 0.2 % (0-2); HEMOGLOBIN 12.8 g/dL (13.5-17.5); IMMATURE GRANULOCYTES 0.4 % (0-5); LYMPHOCYTES 29.5 % (15-50); MCH 31.8 pg (26.0-34.0); MCHC 32.8 g/dL (31.0-37.0); MCV 96.8 fL (80.0-100.0); MEAN PLATELET VOLUME 8.7 fL (7.4-10.4); MONOCYTES 9.2 % (2-11); NEUTROPHILS 56.7 % (40-80); PLATELET COUNT 163 10x3/uL (130-400); RBC 4.03 10x6/uL (4.20-6.10); RDW 12.5 % (11.5-14.5); WBC 4.8 10x3/uL (4.8-10.8)
[2019-04-27 05:36] LABS: CALC OSMOLALITY 281 mosm/kg (275-300); CALCIUM 8.2 mg/dL (8.5-10.1); CARBON DIOXIDE 28.8 mmol/L (21.0-32.0); CHLORIDE - SERUM 106 mmol/L (98-107); CREATININE - SERUM 0.9 mg/dL (0.6-1.3); GLUCOSE 93 mg/dL (74-106); POTASSIUM - SERUM 3.8 mmol/L (3.5-5.1); SODIUM 142 mmol/L (136-145); UREA NITROGEN 9 mg/dL (7-18); eGFR NON AFRICAN AMERICAN > 90 mL/min (90-120)
[2019-04-27 06:48] VITALS: BP 159/93
[2019-04-27 09:01] VITALS: BP 136/88
[2019-04-27 15:04] VITALS: Ht 188 cm; Wt 130.2 kg
[2019-04-27 16:44] VITALS: BP 145/78
[2019-04-27 20:00] VITALS: BP 157/93
[2019-04-28] VITALS: BP 141/85
[2019-04-28 07:12] LABS: BASOPHILS 0.2 % (0-2); EOSINOPHILS 3.4 % (0-7); HEMATOCRIT 37.4 % (42.0-54.0); HEMOGLOBIN 12.4 g/dL (13.5-17.5); IMMATURE GRANULOCYTES 0.5 % (0-5); LYMPHOCYTES 33.7 % (15-50); MCH 31.6 pg (26.0-34.0); MCHC 33.2 g/dL (31.0-37.0); MCV 95.4 fL (80.0-100.0); MEAN PLATELET VOLUME 8.6 fL (7.4-10.4); MONOCYTES 9.3 % (2-11); NEUTROPHILS 52.9 % (40-80); PLATELET COUNT 165 10x3/uL (130-400); RBC 3.92 10x6/uL (4.20-6.10); RDW 12.4 % (11.5-14.5); WBC 4.1 10x3/uL (4.8-10.8)
[2019-04-28 07:25] LABS: CALC OSMOLALITY 278 mosm/kg (275-300); CARBON DIOXIDE 27.3 mmol/L (21.0-32.0); CHLORIDE - SERUM 105 mmol/L (98-107); CREATININE - SERUM 0.8 mg/dL (0.6-1.3); GLUCOSE 92 mg/dL (74-106); POTASSIUM - SERUM 3.6 mmol/L (3.5-5.1); SODIUM 141 mmol/L (136-145); eGFR NON AFRICAN AMERICAN > 90 mL/min (90-120)
[2019-04-28 07:26] LABS: UREA NITROGEN 6 mg/dL (7-18)
[2019-04-28 08:11] VITALS: BP 140/90
[2019-04-28 08:41] VITALS: BP 178/95
[2019-04-28] MEDS ORDERED: PROTONIX40 MG PO (12:10)
[2019-04-28] MEDS ORDERED: CARAFATE1 G PO (12:10)
[2019-04-28 13:41] VITALS: BP 146/89
--- NOTE | 2019-04-28 13:52 | MORECARE ---
CASE MANAGEMENT DISCHARGE SUMMARY PATIENT: SUNIL ALEGRIA UNIT: [id number] ADM DATE: 04/25/19 AGE: 59 : 58 SEX: M ROOM/BED: D.2239 AUTHOR: SINGH DOS SANTOS PHYSICIAN: REFERRING PHYSICIAN: POLLY LIPSCOMB MD DATE OF SERVICE: 04/28/19 Discharge Plan Patient Name: SUNIL ALEGRIA Facility: [facility]:[place] : 1960 Planned Disposition: Home Anticipated Discharge Date: 04/28/19 Discharge Date: Expected LOS: 3 Initial Reviewer: [email or web address] Initial Review Date: 04/28/2019 Generated: 04/28/19 2:51 pm Comments DCP- Discharge Planning Updated by [email or web address]: Anita Taylor on 04/28/19 12:[address] Patient Name: SUNIL ALEGRIA Admission Status: ER Accout number: [id number] Admission Date: 04-25-2019 : 1960 Admission Diagnosis: Attending: POLLY LIPSCOMB Current LOS: 3 Anticipated DC Date: 04-28-2019 Planned Disposition: Home Primary Insurance: [employer] MEDICARE PPO or HMO Discharge Planning Comments: CM met with patient to complete initial dc planning assessment. CM educated patient on the CM role and verbal consent given by patient to complete assessment. Patient lives at home with her spouse. At discharge patient plans to return and feels this is a safe discharge. CM discussed availability of home health, rehab services, and medical equipment. Patient denied known discharge needs at this time. CM will continue to follow and will assist as needed with dc plans/needs. Wrapper Opener: Anita Taylor DCPIA - Discharge Planning Initial Assessment Updated by [email or web address]: Anita Taylor on 04/28/19 1:45 pm * Is the patient Alert and Oriented? Yes * How many steps to enter\exit or inside your home? few w/rail * PCP Marisol Patel [facility] in [place] * [facility] in [place] * Preadmission Environment Home with Family * ADLs Independent * Equipment None * List name and contact numbers for known caregivers / representatives who currently or will assist patient after discharge: [facility] - [phone] * Verbal permission to speak to the caregivers and representatives has been obtained from the patient. Yes * Community resources currently utilized None * Additional services required to return to the preadmission environment? No * Can the patient safely return to the preadmission environment? Yes * Has this patient been hospitalized within the prior 30 days at any hospital? No Coverage Notice Reviewer: [email or web address] Carlos Alberto Anita Brandon Notice Issued Date-Time: 04/28/2019 13:46 Notice Type: IM Discharge Notice Notice Delivered To: Patient Relationship to Patient: Self Production Administrative Assistant Name: Delivery Method: HAND - Hand Delivered Areli Days: Prior Verbal Notification: Recipient Understood Notice: Yes Recipient Signature: Yes Med Rec Note Co-signed by Attending: Coverage Notice Comment: IMM explained, signed, given, copy placed in MR Patient Name: SUNIL ALEGRIA Page [phone] at 1352 All edits/amendments must be made on the electronic document DICTATION DATE: 04/28/19 1351 PRINT LINE OPERATOR: ASHLEY 04/28/19 1351 RPT#: [id number] DC DATE: STATUS: ADM IN [facility] [address] [place] [address] END OF REPORT
--- NOTE | 2019-05-01 09:25 | MORECARE ---
CASE MANAGEMENT DISCHARGE SUMMARY PATIENT: SUNIL ALEGRIA UNIT: [id number] ADM DATE: 04/25/19 AGE: 59 : 58 SEX: M ROOM/BED: D.2239 AUTHOR: RAYADOC PHYSICIAN: REFERRING PHYSICIAN: POLLY LIPSCOMB MD DATE OF SERVICE: 05/01/19 Discharge Plan Patient Name: SUNIL ALEGRIA Facility: [facility]:[place] : 1960 Planned Disposition: Home Anticipated Discharge Date: 04/28/19 Discharge Date: 04/28/2019 Expected LOS: 3 Initial Reviewer: [email or web address] Initial Review Date: 04/28/2019 Generated: 05/01/19 10:24 am Comments DCP- Discharge Planning Updated by [email or web address]: Anita Taylor on 04/28/19 12:[address] Patient Name: SUNIL ALEGRIA Admission Status: ER Accout number: [id number] Admission Date: 04-25-2019 : 1960 Admission Diagnosis: Attending: POLLY LIPSCOMB Current LOS: 3 Anticipated DC Date: 04-28-2019 Planned Disposition: Home Primary Insurance: [employer] MEDICARE PPO or HMO Discharge Planning Comments: CM met with patient to complete initial dc planning assessment. CM educated patient on the CM role and verbal consent given by patient to complete assessment. Patient lives at home with her spouse. At discharge patient plans to return and feels this is a safe discharge. CM discussed availability of home health, rehab services, and medical equipment. Patient denied known discharge needs at this time. CM will continue to follow and will assist as needed with dc plans/needs. Pmo Lead: Anita Taylor DCPIA - Discharge Planning Initial Assessment Updated by [email or web address]: Anita Taylor on 04/28/19 1:45 pm * Is the patient Alert and Oriented? Yes * How many steps to enter\exit or inside your home? few w/rail * PCP Marisol Patel [facility] in [place] * Pharmacy [facility] in [place] * Preadmission Environment Home with Family * ADLs Independent * Equipment None * List name and contact numbers for known caregivers / representatives who currently or will assist patient after discharge: [facility] - [phone] * Verbal permission to speak to the caregivers and representatives has been obtained from the patient. Yes * Community resources currently utilized None * Additional services required to return to the preadmission environment? No * Can the patient safely return to the preadmission environment? Yes * Has this patient been hospitalized within the prior 30 days at any hospital? No Coverage Notice Reviewer: [email or web address] Carlos Alberto [place] Taylor Notice Issued Date-Time: 04/28/2019 13:46 Notice Type: IM Discharge Notice Notice Delivered To: Patient Relationship to Patient: Self Office Secretary Name: Delivery Method: HAND - Hand Delivered Areli Days: Prior Verbal Notification: Recipient Understood Notice: Yes Recipient Signature: Yes Med Rec Note Co-signed by Attending: Coverage Notice Comment: IMM explained, signed, given, copy placed in MR Last DP export: 04/28/19 12:52 p Patient Name: SUNIL ALEGRIA Page [phone] at 0925 All edits/amendments must be made on the electronic document DICTATION DATE: 05/01/19923 ASSISTANCE COORDINATOR: ASHLEY 05/01/19923 RPT#: [id number] DC DATE:04/28/19 STATUS: DIS IN [facility] [address] [place] [address] END OF REPORT
== END 2019-04-28 18:34 | disposition home or self-care (01) | DRG 392 ==
LOC: D.ER 17:54 → D.MS 23:38
PROVIDERS: Family Medicine; Internal Medicine Gastroenterology; ADMIT Internal Medicine Nephrology; ATTEND Internal Medicine Nephrology
PROC: 0DB68ZX Excision of Stomach, Via Natural or Artificial Opening Endoscopic, Diagnostic (ICD-10-PCS; principal; 2019-04-26 15:15)
DX: K21.0 Gastro-esophageal reflux disease with esophagitis (principal); K52.9 Noninfective gastroenteritis and colitis, unspecified; I25.10 Atherosclerotic heart disease of native coronary artery without angina pectoris; E78.5 Hyperlipidemia, unspecified; I10 Essential (primary) hypertension; K44.9 Diaphragmatic hernia without obstruction or gangrene; K29.70 Gastritis, unspecified, without bleeding

== ENCOUNTER 2019-05-02 18:06 | Inpatient (IN) | payer MEDICARE ==
[~2019-05-02] VITALS: Ht 188 cm; Wt 128.0 kg
[~2019-05-02 18:06] MED LIST changes: +CARAFATE1 G PO; +PROTONIX40 MG PO; +TRIBENZOR 40-51 EAC1 PO
[2019-05-02 18:58] LABS: BASOPHILS 0.4 % (0-2); EOSINOPHILS 1.4 % (0-7); HEMATOCRIT 41.1 % (42.0-54.0); HEMOGLOBIN 13.8 g/dL (13.5-17.5); IMMATURE GRANULOCYTES 0.5 % (0-5); LYMPHOCYTES 19.7 % (15-50); MCH 31.7 pg (26.0-34.0); MCHC 33.6 g/dL (31.0-37.0); MCV 94.3 fL (80.0-100.0); MEAN PLATELET VOLUME 8.8 fL (7.4-10.4); MONOCYTES 8.6 % (2-11); NEUTROPHILS 69.4 % (40-80); PLATELET COUNT 187 10x3/uL (130-400); RBC 4.36 10x6/uL (4.20-6.10); RDW 12.4 % (11.5-14.5); WBC 8.1 10x3/uL (4.8-10.8)
[2019-05-02 19:08] LABS: CALC OSMOLALITY 274 mosm/kg (275-300); CALCIUM 8.8 mg/dL (8.5-10.1); CARBON DIOXIDE 28.5 mmol/L (21.0-32.0); CHLORIDE - SERUM 101 mmol/L (98-107); GLUCOSE 90 mg/dL (74-106); POTASSIUM - SERUM 3.5 mmol/L (3.5-5.1); SODIUM 138 mmol/L (136-145); UREA NITROGEN 10 mg/dL (7-18); eGFR NON AFRICAN AMERICAN 81 mL/min (90-120)
[2019-05-02 19:15] LABS: ALBUMIN 4.1 g/dL (3.4-5.0); ALKALINE PHOSPHATASE 108 U/L (30-120); ALT (SGPT) 37 U/L (10-68); AMYLASE - SERUM 49 U/L (25-115); BILIRUBIN - TOTAL 0.36 mg/dL (0.2-1.3); LIPASE 90 U/L (73-393); PROTEIN - SERUM 7.5 g/dL (6.4-8.2)
[2019-05-02 19:20] LABS: TROPONIN-I < 0.017 ng/mL (0.000-0.060)
[2019-05-02 20:01] LABS: BILIRUBIN NEGATIVE (NEGATIVE); GLUCOSE NEGATIVE (NEGATIVE); KETONE NEGATIVE (NEGATIVE); NITRITE NEGATIVE (NEGATIVE); UROBILINOGEN NORMAL (NORMAL)
[2019-05-02 22:29] VITALS: BP 161/98; BMI 36.0
[2019-05-02 23:00] VITALS: BP 152/95
--- NOTE | 2019-05-02 23:15 | NUR ---
PT C/O GENERALIZED ABDOMINAL DISCOMFORT RADIATING FROM UPPPER TO LOWER ABDOMEN, PT STATED " BURNING FEELING ", REPOSITIONED PT FOR COMFORT, HOB ELEVATED, SBP ELEVATED 150-160'S ON CM, OTHER VSS, WILL CONTINUE TO ASSESS AND NOTIFY PHYSICIAN IF DISCOMFORT CONTINUES
[2019-05-02 23:30] VITALS: BP 164/96
--- NOTE | 2019-05-02 23:57 | NUR ---
MAGALIS BRAR APRN AT BEDSIDE, UPDATE GIVEN, PT AWAKE AND ALERT CALM ANSWERING QUESTIONS APPROPRIATLY, VSS, WILL CONTINUE MONITOR AND POC
[2019-05-03] VITALS (24 sets, daily range): BP systolic 97–165; BP diastolic 60–96; Ht 188 cm; Wt 128.0 kg
--- NOTE | 2019-05-03 00:10 | NUR ---
ORDERS RECEIVED FROM MAGALIS SHEETS APRN FOR; 1mg DILAUDID PIV ONCE FOR PAIN, NO FURTHER AT THIS THIS TIME, WILL CONTINUE TO MONITOR
--- NOTE | 2019-05-03 01:30 | NUR ---
PT RESTING COMFORTABLY IN BED, WAKES EASY AAOx4, PT DENIES NEEDS AT THIS TIME, VSS, CALL LIGHT IN REACH, BED ALARM ON, WILL CONTINUE TO MONITOR
[2019-05-03 05:20] LABS: BASOPHILS 0.3 % (0-2); EOSINOPHILS 2.1 % (0-7); HEMATOCRIT 38.8 % (42.0-54.0); HEMOGLOBIN 12.9 g/dL (13.5-17.5); IMMATURE GRANULOCYTES 0.3 % (0-5); LYMPHOCYTES 24.4 % (15-50); MCH 31.5 pg (26.0-34.0); MCHC 33.2 g/dL (31.0-37.0); MCV 94.6 fL (80.0-100.0); MEAN PLATELET VOLUME 8.8 fL (7.4-10.4); MONOCYTES 8.7 % (2-11); NEUTROPHILS 64.2 % (40-80); PLATELET COUNT 179 10x3/uL (130-400); RDW 12.5 % (11.5-14.5); WBC 6.2 10x3/uL (4.8-10.8)
[2019-05-03 05:26] LABS: APTT 26.7 SECONDS (22.8-39.4); INR 1.04 (0.85-1.17); PROTIME 13.5 SECONDS (11.6-15.0)
[2019-05-03 05:49] LABS: ALBUMIN 3.8 g/dL (3.4-5.0); ALKALINE PHOSPHATASE 101 U/L (30-120); ALT (SGPT) 32 U/L (10-68); BILIRUBIN - TOTAL 0.49 mg/dL (0.2-1.3); CALC OSMOLALITY 276 mosm/kg (275-300); CALCIUM 8.2 mg/dL (8.5-10.1); CARBON DIOXIDE 28.9 mmol/L (21.0-32.0); CHLORIDE - SERUM 103 mmol/L (98-107); GLUCOSE 90 mg/dL (74-106); PHOSPHOROUS 4.3 mg/dL (2.5-4.9); POTASSIUM - SERUM 3.3 mmol/L (3.5-5.1); PROTEIN - SERUM 6.5 g/dL (6.4-8.2); SODIUM 139 mmol/L (136-145); UREA NITROGEN 11 mg/dL (7-18); eGFR NON AFRICAN AMERICAN 81 mL/min (90-120)
--- NOTE | 2019-05-03 19:30 | MORECARE ---
CASE MANAGEMENT DISCHARGE SUMMARY PATIENT: SUNIL ALEGRIA UNIT: [id number] ADM DATE: 05/02/19 AGE: 59 : 58 SEX: M [facility] AUTHOR: SINGH DOS SANTOS PHYSICIAN: REFERRING PHYSICIAN: SHERON ADORNO MD DATE OF SERVICE: 05/03/19 Discharge Plan Patient Name: SUNIL ALEGRIA [facility] [facility] 1960 Planned Disposition: Anticipated Discharge Date: Discharge Date: Expected LOS: Initial Reviewer: [email or web address] Initial Review Date: 05/02/2019 Generated: 05/03/19 8:29 pm DCPIA - Discharge Planning Initial Assessment Updated by [email or web address]: Emmy Lowry on 05/03/19 7:25 pm * Is the patient Alert and Oriented? Yes * How many steps to enter\exit or inside your home? * PCP [facility] * Pharmacy [facility] * Preadmission Environment Home with Family * ADLs Independent * Equipment None * List name and contact numbers for known caregivers / representatives who currently or will assist patient after discharge: SALEEM PAGAN [facility] - [phone] * Verbal permission to speak to the caregivers and representatives has been obtained from the patient. Yes * Community resources currently utilized None * Additional services required to return to the preadmission environment? No * Can the patient safely return to the preadmission environment? Yes * Has this patient been hospitalized within the prior 30 days at any hospital? Yes Patient Name: SUNIL ALEGRIA Page [phone] at 1930 All edits/amendments must be made on the electronic document DICTATION DATE: 05/03/191928 PLANT PROTECTION SUPERVISOR: ASHLEY 05/03/191928 RPT#: [id number] DC DATE: STATUS: ADM IN [facility] [address] [place] [address] END OF REPORT
--- NOTE | 2019-05-03 21:02 | MORECARE ---
CASE MANAGEMENT DISCHARGE SUMMARY PATIENT: SUNIL ALEGRIA UNIT: [id number] ADM DATE: 05/02/19 AGE: 59 : 58 SEX: M ROOM/BED: D.[facility] AUTHOR: RAYADOC PHYSICIAN: REFERRING PHYSICIAN: SHERON ADORNO MD DATE OF SERVICE: 05/03/19 Discharge Plan Patient Name: SUNIL ALEGRIA Facility: [facility]:[place] : 1960 Planned Disposition: Anticipated Discharge Date: Discharge Date: Expected LOS: Initial Reviewer: [email or web address] Initial Review Date: 05/02/2019 Generated: 05/03/19 10:02 pm Comments DCP- Discharge Planning Updated by [email or web address]: Emmy Lowry on 05/03/19 8:[address] Patient Name: SUNIL ALEGRIA Admission Status: ER Accout number: [id number] Admission Date: 05-02-2019 : 1960 Admission Diagnosis: Attending: CHANCE ADORNO Current LOS: 1 Anticipated DC Date: Planned Disposition: Primary Insurance: [employer] MEDICARE PPO or HMO Discharge Planning Comments: CM met with patient to complete initial dc planning assessment. CM educated patient on the CM role and verbal consent given by patient to complete assessment. CM verified patient's address, phone number, and emergency contact phone numbers. Patient lives at home with his spouse. At discharge patient plans to return home and feels that is a safe discharge. CM discussed availability of home health, rehab services, and medical equipment. Patient denies any discharge needs at this time. CM will continue to follow and will assist as needed with dc plans/needs. Electronic Systems Technician: Emmy Lowry DCPIA - Discharge Planning Initial Assessment Updated by [email or web address]: Emmy Lowry on 05/03/19 7:25 pm * Is the patient Alert and Oriented? Yes * How many steps to enter\exit or inside your home? * PCP [facility] * [facility]acy [facility] * Preadmission Environment Home with Family * ADLs Independent * Equipment None * List name and contact numbers for known caregivers / representatives who currently or will assist patient after discharge: SALEEM PAGAN - SPOUSE - [phone] * Verbal permission to speak to the caregivers and representatives has been obtained from the patient. Yes * Community resources currently utilized None * Additional services required to return to the preadmission environment? No * Can the patient safely return to the preadmission environment? Yes * Has this patient been hospitalized within the prior 30 days at any hospital? Yes Last DP export: 05/03/19 6:30 pm Patient Name: SUNIL ALEGRIA Page [id number] at 210 All edits/amendments must be made on the electronic document DICTATION DATE: 05/03/192101 ERGONOMICS ENGINEER: ASHLEY 05/03/192101 RPT#: [id number] DC DATE: STATUS: ADM IN [facility] [address] [place] [address] END OF REPORT
--- NOTE | 2019-05-03 23:30 | NUR ---
PT ARRIVED TO FLOOR FROM ICU VIA WHEELCHAIR. AMBULATED TO BED WITHOUT DIFFICULTY. AOX4. IV RIGHT WRIST AND RIGHT FA INFUSING PROTONIX @ 10 AND NS @ 125. IV RIGHT WRIST INFILTRATED. DC'D WITH CATHETER INTACT. PROVIDED ICE WATER. REQUESTED AND GIVEN DILAUDID FOR PAIN 12/08. DENIES OTHER NEEDS. CL IN REACH, WILL CTM
[2019-05-04] VITALS: BP 136/78
[2019-05-04 04:00] VITALS: BP 125/70
[2019-05-04 06:45] LABS: BASOPHILS 0.2 % (0-2); HEMATOCRIT 38.2 % (42.0-54.0); HEMOGLOBIN 12.4 g/dL (13.5-17.5); IMMATURE GRANULOCYTES 0.2 % (0-5); LYMPHOCYTES 24.7 % (15-50); MCH 31.6 pg (26.0-34.0); MCHC 32.5 g/dL (31.0-37.0); MEAN PLATELET VOLUME 8.7 fL (7.4-10.4); MONOCYTES 9.2 % (2-11); NEUTROPHILS 61.7 % (40-80); PLATELET COUNT 158 10x3/uL (130-400); RBC 3.93 10x6/uL (4.20-6.10); RDW 12.4 % (11.5-14.5); WBC 4.8 10x3/uL (4.8-10.8)
[2019-05-04 06:57] LABS: CALC OSMOLALITY 274 mosm/kg (275-300); CALCIUM 7.7 mg/dL (8.5-10.1); CARBON DIOXIDE 28.7 mmol/L (21.0-32.0); CHLORIDE - SERUM 104 mmol/L (98-107); CREATININE - SERUM 0.9 mg/dL (0.6-1.3); GLUCOSE 98 mg/dL (74-106); MAGNESIUM - SERUM 2.1 mg/dL (1.8-2.4); MCV 97.2 fL (80.0-100.0); PHOSPHOROUS 3.7 mg/dL (2.5-4.9); SODIUM 138 mmol/L (136-145); UREA NITROGEN 11 mg/dL (7-18); eGFR NON AFRICAN AMERICAN > 90 mL/min (90-120)
[2019-05-04 06:59] LABS: POTASSIUM - SERUM 3.8 mmol/L (3.5-5.1)
[2019-05-04 09:34] VITALS: BP 138/83
--- NOTE | 2019-05-04 10:10 | NUR ---
PATIENT IV REMOVED WITH CATH TIP INTACT DUE TO REDNESS AND PAIN.
--- NOTE | 2019-05-04 10:45 | NUR ---
PATIENT IV RESTARTED IN RIGHT HAND X 1 STICK 20 G. PATIENT TOLERATED WITH SMALL AMOUNT OF PAIN. FAMILY AT BEDSIDE. CALL LIGHT WITHIN REACH.
[2019-05-04 13:04] VITALS: BP 150/90
[2019-05-04 18:07] VITALS: BP 162/90
[2019-05-04 20:00] VITALS: BP 145/91
[2019-05-05] VITALS: BP 132/80
[2019-05-05 04:00] VITALS: BP 157/87
[2019-05-05 04:13] LABS: BASOPHILS 0.2 % (0-2); EOSINOPHILS 3.5 % (0-7); HEMATOCRIT 37.8 % (42.0-54.0); HEMOGLOBIN 12.3 g/dL (13.5-17.5); LYMPHOCYTES 26.3 % (15-50); MCH 31.7 pg (26.0-34.0); MCHC 32.5 g/dL (31.0-37.0); MCV 97.4 fL (80.0-100.0); MEAN PLATELET VOLUME 8.4 fL (7.4-10.4); MONOCYTES 7.4 % (2-11); NEUTROPHILS 62.6 % (40-80); PLATELET COUNT 137 10x3/uL (130-400); RBC 3.88 10x6/uL (4.20-6.10); RDW 12.4 % (11.5-14.5); WBC 4.3 10x3/uL (4.8-10.8)
[2019-05-05 04:36] LABS: CALC OSMOLALITY 281 mosm/kg (275-300); CARBON DIOXIDE 29.9 mmol/L (21.0-32.0); CHLORIDE - SERUM 108 mmol/L (98-107); CREATININE - SERUM 0.8 mg/dL (0.6-1.3); GLUCOSE 88 mg/dL (74-106); MAGNESIUM - SERUM 1.9 mg/dL (1.8-2.4); POTASSIUM - SERUM 3.7 mmol/L (3.5-5.1); SODIUM 143 mmol/L (136-145); eGFR NON AFRICAN AMERICAN > 90 mL/min (90-120)
[2019-05-05 04:40] LABS: UREA NITROGEN 7 mg/dL (7-18)
--- NOTE | 2019-05-05 04:47 | NUR ---
ASSESSED AT THE BEGINNING OF THE SHIFT. PT IS ALERT AND ORIENTED, ABLE TO VERBALIZE NEEDS. HAS REMAINED WITH HIM ALL NIGHT. HE WAS ABLE TO DRINK MOST OF HIS GOYLTELY AND IS NOW CLEAR. AND NPO. HE HAS SLEPT WELL AFTER FINISHING WITH GOING TO THE BATHROOM. CONSENTS TO BE SIGNED NOW AND HE WILL BE READY IN THE AM FOR COLONOSCOPY.
--- NOTE | 2019-05-05 07:15 | NUR ---
CURRENTLY BEING TAKEN FOR COLONOSCOPY.
[2019-05-05 08:00] VITALS: BP 143/85
--- NOTE | 2019-05-05 10:00 | NUR ---
CONT POST OP VITALS WERE NOT COMPLETED DUE TO PT DISCONNECTING HIMSELF FROM MACHINE.
[2019-05-05 12:12] VITALS: BP 159/91
[2019-05-05] MEDS ORDERED: QUESTRAN LIG1 PACKET PO (13:06)
[2019-05-05] MEDS ORDERED: BENTYL 20 MG TA20 MG PO (13:06)
--- NOTE | 2019-05-05 13:47 | NUR ---
Nutrition follow-up: Pt has been NPO for colonoscopy today Wt: 282# Labs reviewed PO intake has been poor RDN following.
--- NOTE | 2019-05-05 15:31 | MORECARE ---
CASE MANAGEMENT DISCHARGE SUMMARY PATIENT: SUNIL ALEGRIA UNIT: [id number] ADM DATE: 05/02/19 AGE: 59 : 58 SEX: M ROOM/BED: D.2210 AUTHOR: RAYA,DOC PHYSICIAN: REFERRING PHYSICIAN: SHERON ADORNO MD DATE OF SERVICE: 05/05/19 Discharge Plan Patient Name: SUNIL ALEGRIA Facility: [facility]:[place] : 1960 Planned Disposition: Anticipated Discharge Date: Discharge Date: Expected LOS: Initial Reviewer: [email or web address] Initial Review Date: 05/02/2019 Generated: 05/05/19 4:31 pm Comments DCP- Discharge Planning Updated by [email or web address]: Emily Marin on 05/05/19 2:[address] PATIENT IS DISCHARGING HOME TODAY AT BEDSIDE AND WILL BE HIS PAPER WINDER, IMM SERVED AND EXPLAINED. PATIENT DENIES ANY NEEDS AT THIS TIME. DCP- Discharge Planning Updated by [id number]: Emmy Lowry on 05/03/19 8:[address] Patient Name: SUNIL ALEGRIA Admission Status: ER Accout number: [id number] Admission Date: 05-02-2019 : 1960 Admission Diagnosis: Attending: CHANCE ADORNO Current LOS: 1 Anticipated DC Date: Planned Disposition: Primary Insurance: [employer] MEDICARE PPO or HMO Discharge Planning Comments: CM met with patient to complete initial dc planning assessment. CM educated patient on the CM role and verbal consent given by patient to complete assessment. CM verified patient's address, phone number, and emergency contact phone numbers. Patient lives at home with his spouse. At discharge patient plans to return home and feels that is a safe discharge. CM discussed availability of home health, rehab services, and medical equipment. Patient denies any discharge needs at this time. CM will continue to follow and will assist as needed with dc plans/needs. Plumbing Mechanic: Emmy Lowry DCPIA - Discharge Planning Initial Assessment Updated by [email or web address]: Emmy Lowry on 05/03/19 7:25 pm * Is the patient Alert and Oriented? Yes * How many steps to enter\exit or inside your home? * PCP [facility] * [facility] * Preadmission Environment Home with Family * ADLs Independent * Equipment None * List name and contact numbers for known caregivers / representatives who currently or will assist patient after discharge: SALEEM MARSHALL - [phone] * Verbal permission to speak to the caregivers and representatives has been obtained from the patient. Yes * Community resources currently utilized None * Additional services required to return to the preadmission environment? No * Can the patient safely return to the preadmission environment? Yes * Has this patient been hospitalized within the prior 30 days at any hospital? Yes Coverage Notice Reviewer: [id number] Carlos Alberto Marin Notice Issued Date-Time: 05/05/2019 15:00 Notice Type: IM Discharge Notice Notice Delivered To: Patient Relationship to Patient: Powder Press Operator Name: Delivery Method: HAND - Hand Delivered Areli Days: Prior Verbal Notification: Recipient Understood Notice: Yes Recipient Signature: Yes Med Rec Note Co-signed by Attending: Coverage Notice Comment: Last DP export: 05/03/19 8:02 pm Patient Name: SUNIL ALEGRIA Page [id number] at 1531 All edits/amendments must be made on the electronic document DICTATION DATE: 05/05/19 1531 LABORATORY TECH: ASHLEY 05/05/19 1531 RPT#: [id number] DC DATE: STATUS: ADM IN [facility] [address] [place] [address] END OF REPORT
--- NOTE | 2019-05-05 15:43 | NUR ---
DC`D HOME WITH VIA WHEELCHAIR AND HOSPITAL STAFF.
--- NOTE | 2019-05-08 12:01 | MORECARE ---
CASE MANAGEMENT DISCHARGE SUMMARY PATIENT: SUNIL ALEGRIA UNIT: [id number] ADM DATE: 05/02/19 AGE: 59 : 58 SEX: M ROOM/BED: D.2210 AUTHOR: RAYA,DOC PHYSICIAN: REFERRING PHYSICIAN: SHERON ADORNO MD DATE OF SERVICE: 05/08/19 Discharge Plan Patient Name: SUNIL ALEGRIA Facility: [facility]:[place] : 1960 Planned Disposition: Anticipated Discharge Date: Discharge Date: 05/05/2019 Expected LOS: 0 Initial Reviewer: [email or web address] Initial Review Date: 05/02/2019 Generated: 05/08/19 1:01 pm Comments DCP- Discharge Planning Updated by [email or web address]: Emily Marin on 05/05/19 1:[address] PATIENT IS DISCHARGING HOME TODAY AT BEDSIDE AND WILL BE HIS BUSINESS SERVICES ASSISTANT, IMM SERVED AND EXPLAINED. PATIENT DENIES ANY NEEDS AT THIS TIME. DCP- Discharge Planning Updated by [email or web address]: Emmy Lowry on 05/03/19 7:[address] Patient Name: SUNIL ALEGRIA Admission Status: ER Accout number: [id number] Admission Date: 05-02-2019 : 1960 Admission Diagnosis: Attending: CHANCE ADORNO Current LOS: 1 Anticipated DC Date: Planned Disposition: Primary Insurance: A[employer] MEDICARE PPO or HMO Discharge Planning Comments: CM met with patient to complete initial dc planning assessment. CM educated patient on the CM role and verbal consent given by patient to complete assessment. CM verified patient's address, phone number, and emergency contact phone numbers. Patient lives at home with his spouse. At discharge patient plans to return home and feels that is a safe discharge. CM discussed availability of home health, rehab services, and medical equipment. Patient denies any discharge needs at this time. CM will continue to follow and will assist as needed with dc plans/needs. Appliance Fixer: Emmy Lowry DCPIA - Discharge Planning Initial Assessment Updated by [id number]: Emmy Lowry on 05/03/19 7:25 pm * Is the patient Alert and Oriented? Yes * How many steps to enter\exit or inside your home? * PCP [facility] * [facility] * Preadmission Environment Home with Family * ADLs Independent * Equipment None * List name and contact numbers for known caregivers / representatives who currently or will assist patient after discharge: SALEEM Carcamo [facility] - [phone] * Verbal permission to speak to the caregivers and representatives has been obtained from the patient. Yes * Community resources currently utilized None * Additional services required to return to the preadmission environment? No * Can the patient safely return to the preadmission environment? Yes * Has this patient been hospitalized within the prior 30 days at any hospital? Yes Coverage Notice Reviewer: [email or web address] Carlos Alberto Marin Notice Issued Date-Time: 05/05/2019 15:00 Notice Type: IM Discharge Notice Notice Delivered To: Patient Relationship to Patient: Instrument Technologist Name: Delivery Method: HAND - Hand Delivered Areli Days: Prior Verbal Notification: Recipient Understood Notice: Yes Recipient Signature: Yes Med Rec Note Co-signed by Attending: Coverage Notice Comment: Last DP export: 05/05/19 1:31 pm Patient Name: SUNIL ALEGRIA Page [id number] at 1201 All edits/amendments must be made on the electronic document DICTATION DATE: 05/08/19 1201 UTILITY REPAIRER: ASHLEY 05/08/19 1201 RPT#: [id number] DC DATE:05/05/19 STATUS: DIS IN [facility] [address] [place] [address] END OF REPORT
== END 2019-05-05 15:44 | disposition home or self-care (01) | DRG 392 ==
LOC: D.ER 18:06 → D.CVICU 20:08 → D.MS 20:08
PROVIDERS: Family Medicine; Internal Medicine Gastroenterology; ADMIT Emergency Medicine; ATTEND Emergency Medicine
PROC: 0DBE8ZX Excision of Large Intestine, Via Natural or Artificial Opening Endoscopic, Diagnostic (ICD-10-PCS; 2019-05-05)
PROC: 0DBL8ZZ Excision of Transverse Colon, Via Natural or Artificial Opening Endoscopic (ICD-10-PCS; principal; 2019-05-05 07:00)
DX: K21.0 Gastro-esophageal reflux disease with esophagitis (principal); K44.9 Diaphragmatic hernia without obstruction or gangrene; I10 Essential (primary) hypertension; N40.0 Benign prostatic hyperplasia without lower urinary tract symptoms; E78.5 Hyperlipidemia, unspecified; I25.10 Atherosclerotic heart disease of native coronary artery without angina pectoris; M19.90 Unspecified osteoarthritis, unspecified site; K63.5 Polyp of colon; K64.0 First degree hemorrhoids; K57.90 Diverticulosis of intestine, part unspecified, without perforation or abscess without bleeding; K29.70 Gastritis, unspecified, without bleeding

== ENCOUNTER 2019-06-12 17:15 | Observation (INO) | payer MEDICARE ==
[~2019-06-12] VITALS: Ht 188 cm; Wt 126.6 kg
--- NOTE | ~2019-06-12 | HEMODYNAMI ---
PATIENT:SUNIL ALEGRIA MEDICAL RECORD: [id number] : 58 [id number] ADMISSION DATE: 06/12/19 Generatedon:06/13/201915:58 Patient name: SUNIL ALEGRIA Patient #: [id number] SSN: [id number] : 1960 Date of study: 06/13/2019 Page: Of Hemodynamic Procedure Report Patient Data Patient Demographics Procedure consent was obtained First Name: SUNIL Gender: Male Last Name: RAJI : 1960 Patient #: [id number] Age: 59 year(s) Race: SSN: [id number] Additional ID: [id number] Contact details Address: [address] [place] [address] State: [place] City: [place] Zip code: [address] Past Medical History Allergies Allergen Reaction Date Comments Reported Other 10/21/2018 codeine, meperidine, allergy metoclopramide, prochlorperazine. Other 01/30/2019 compazine, codeine allergy Other 02/19/2019 codeine, meperidine, allergy metoclopramide, prochlorperazine Other 06/13/2019 PROCHLORPERAZINE/CODEINE/SEE allergy LIST Admission Admission Data Admission Date: 06/12/2019 Admission Time: 19:22 Arrival Date: 06/13/2019 Arrival Time: 0:00 Room #: D.2115 Insurance Payor: Private health insurance [facility] #: [id number] Height (in.): 74.02 BSA: 2.51 (m2) Height (cm.): 188 BMI: 35.93 (kg/m2) Weight (lbs.): 279.99 Weight (kg.): 127 Lab Results Lab Result Date: 06/13/2019 Lab Result Time: 0:00 Biochemistry Name Units Result Min Max BUN mg/dl 10 --(-*--)-- 7 18 CK-MB ng/ml 1.6 --(-*--)-- 0 3.6 Creatinine mg/dl 0.9 --(-*--)-- 0.6 1.3 eGFR ml/min 90 --(*---)-- 90 120 NONAFRICAN Troponin l ng/ml 0.017 --(-*--)-- 0 0.06 CBC Name Units Result Min Max Hematocrit % 41.1 -*(----)-- 42 54 Hemoglobin g/dl 12.9 -*(----)-- 13.5 17.5 Procedure Procedure Types Cath Procedure Diagnostic Procedure [facility] w/Coronaries Sedation Charges Moderate Sedation up to 15 minutes Procedure Description Procedure Date Procedure Date: 06/13/2019 Procedure Start Time: 15:39 Procedure End Time: 15:56 Procedure Staff Name Function Jl Mehta MD Performing Physician Cindy Ramirez RT Monitor Marilin Maldonado RT Scrub Miki Bird RN Nurse Indication CAD Procedure Data Cath Procedure Fluoroscopy Diagnostic fluoroscopy Total fluoroscopy Time: 1.5 time: 1.5 min min Diagnostic fluoroscopy Total fluoroscopy dose: 763 dose: 763 mGy mGy Contrast Material Contrast Material Type Amount (ml) Isovue 300 55 Entry Location Entry Primary Successful Side Size Upsize Upsize Entry Closure Succes sful Closure Location (Fr) 1 (Fr) 2 (Fr) Remarks Device Remarks Femoral Right 5 Fr Exoseal artery Estimated blood loss: 5 ml Diagnostic catheters Device Type Used For End Catheter Placement MULTIPACK JL 4.0 5Fr Left Coronary catheter Angiography MULTIPACK 3DRC 5Fr Right Coronary catheter Angiography MULTIPACK Pigtail 5 Fr LV Angiography catheter Procedure Complications No complications Procedure Medications Medication Administration Route Dosage 0.9% NaCl I.V. 100 ml/hr Oxygen etCO2 Nasal cannula 2 l/min Heparin Flush Bag added to field 2 bags (1000units/500ml NS) Lidocaine 2% added to field 20 Versed I.V. 2 mg Fentanyl I.V. 100 mcg Versed I.V. 2 mg Hemodynamics Rest BSA: 2.51 (m2) O2 Consumption: Estimated: 288.68 (ml/min) O2 Consumption indexed : Estimated:115.01 (ml/min/m) Heart Rate: 63 (bpm) Pressure Samples Time Site Value (mmHg) Purpose Heart Use Rate(bpm) 15:50 LV 118/12,16 Snapshot 64 15:50 AO 122/82(97) Pullback 65 15:50 LV 123/9,30 Pullback 65 Gradients Valve Time Site 1 Site 2 Mean SEP/DFP Peak To Heart Use (mmHg) (sec/min) Peak Rate (mmHg) (bpm) Aortic 15:50 LV AO 12 14 1 65 123/9,30 122/82(97) Calculations Valve P-P Mean Valve Index Valve Source Name Gradient Area Flow (cm2) Aortic 1 12 1 12 Snapshots Pre Cath Intra NCS Post Cath Vital Signs Time Heart Resp SPO2 etCO2 NIBP (mmHg) Rhythm Pain Sedation Rate (ipm) (%) (mmHg) Status Level (bpm) 15:34:32 64 18 94 50.6 128/87(101) NSR 0 (11) 10(A) , No pain 15:38:42 63 16 96 55.8 121/75(91) NSR 0 (11) 10(A) , No pain 15:42:48 63 15 92 43 112/79(95) NSR 0 (11) 10(A) , No pain 15:46:54 62 5 92 37 118/72(102) NSR 0 (11) 10(A) , No pain 15:50:59 64 10 92 48.3 134/78(96) NSR 0 (11) 10(A) , No pain 15:55:11 65 9 93 40 133/80(100) NSR 0 (11) 10(A) , No pain Medications Time Medication Route Dose Verified Delivered Reason Notes Eff ectiveness by by 15:32:56 0.9% NaCl I.V. 100 Miki Miki Per ml/hr Marge Bird physician RN RN 15:33:04 Oxygen etCO2 2 Miki Miki for low 02 Nasal l/min Lorigan Lorigan sats cannula RN RN 15:33:14 Heparin Flush added 2 Miki Miki used for Bag to bags Lorigan Marge procedure (1000units/500ml field RN RN NS) 15:33:25 Lidocaine 2% added 20ml Miki Miki for local to vial Lorigan Lorigan anesthetic field RN RN 15:37:27 Versed I.V. 2 mg Miki Miki for Lorigan Lorigan sedation RN RN 15:38:35 Fentanyl I.V. 100 Miki Miki for mcg Lorigan Lorigan sedation RN RN 15:43:35 Versed I.V. 2 mg Miki Livingston for Marge Bird sedation RN vice president of finance Log Time Note 15:17:36 Informed consent obtained and on chart 15:18:29 Indication : CAD 15:18:46 Arrival Date: 06/13/2019 12:00:00 AM 15:19:03 Insurance Payor : Private health insurance 15:19:08 Patient Height : 74.02 inches 15:19:13 Patient Weight : 279.99 lbs 15:19:24 Procedure Status Urgent Heart Cath (IP). 15:19:27 Miki Bird RN sent for patient. Start room use. 15:19:31 Time tracking: Regular hours (M-F 7:00 - 5:00) 15:19:38 Plan of Care:Hemodynamics will remain stable., Cardiac rhythm will remain stable., Comfort level will be maintained., Respiratory function will remain adequate., Patient/ family verbilizes understanding of procedure., Procedure tolerated without complication., Recovers from procedure without complications.. 15:20:12 Patient allergic to Other allergyPROCHLORPERAZINE/CODEINE/SEE LIST 15:22:38 Lab Result : CK-MB 1.6 ng/ml 15:22:38 Lab Result : Troponin l 0.017 ng/ml 15::38 Lab Result : BUN 10 mg/dl 15::38 Lab Result : Creatinine 0.9 mg/dl 15:22:38 Lab Result : Hematocrit 41.1 % 15:22:38 Lab Result : Hemoglobin 12.9 g/dl 15:22:38 Lab Result : eGFR NONAFRICAN 90 ml/min 15:23:06 Patient received from Med II to [facility] 2 Alert and oriented. Tansferred to table in Supine position. 15:23:09 Warm blankets applied, and jose hugger turned on for patient comfort. 15:23:10 Correct patient and procedure confirmed by team. 15:23:11 ECG and BP/O2 sat monitors applied to patient. 15:32:56 0.9% NaCl 100 ml/hr I.V. was administered by Miki Bird RN; Per physician; Verbal order read back and verified. 15:33:04 Oxygen 2 l/min etCO2 Nasal cannula was administered by Miki Bird RN; for low 02 sats; Verbal order read back and verified. 15:33:14 Heparin Flush Bag (1000units/500ml NS) 2 bags added to field was administered by Miki Bird RN; used for procedure; Verbal order read back and verified. 15:33:25 Lidocaine 2% 20ml vial added to field was administered by Miki Bird RN; for local anesthetic; Verbal order read back and verified. 15:33:29 Vital chart was started 15:34:13 Baseline sample Acquired. 15:34:20 Rhythm: sinus rhythm 15:34:23 Full Disclosure recording started 15:34:24 - 15:34:29 H&P Date Dictated: 06/13/2019 Within 30 days and on chart.. 15:34:31 Pre-procedure instructions explained to patient. 15:34:32 Pre-op teaching completed and patient verbalized understanding. 15:34:34 Family unavailable. 15:34:37 Patient NPO since Midnight. 15:34:44 Is the patient allergic to Iodine/contrast media? No. 15:34:47 Was the patient premedicated? Yes 15:34:50 Is patient on blood thinner?Yes 15:34:55 ACC The patient was administered the following blood thiners within the last 24 hours: ACCPlavix 15:35:33 PLAVIX 06-13-2019. 15:35:40 Patient diabetic? No. 15:35:51 ----Pre-sedation anethsthesia assessment.---- 15:35:57 Previous problem with sedation/anesthesia? No ? 15:36:00 Snore? Yes 15:36:02 Sleep apnea? Yes 15:36:05 Deviated septum? No 15:36:09 Opens mouth fully? Yes 15:36:12 Sticks out tongue? Yes 15:36:35 Airway obstruction? No ? 15:36:39 Dentures? No ? 15:37:03 IV patent on arrival in right hand with 0.9% NaCl at [facility]. 15:37:09 Lab results completed and on chart. 15:37:17 Pre procedure: right dorsailis pedis pulse 2+ Normal; easily identifiable; not easily obliterated 15:37:27 Versed 2 mg I.V. was administered by Miki Bird RN; for sedation; Verbal order read back and verified. 15:37:37 Stress Test: no; N/A ? 15:37:43 Right groin area was prepped with chlora-prep and draped in sterile fashion 15:37:46 Alarms reviewed by R. N. 15:37:47 Sharps counted by scrub and verified by R.N. 15:37:49 Physician arrived 15:37:53 --------ALL STOP TIME OUT------ 15:37:54 Final Timeout: patient, procedure, and site verified with staff and physician. All members of the team are in agreement. 15:37:57 Right groin site verified by team. 15:38:02 Fire Safety Assessment: A--An alcohol-based skin anteseptic being used preoperatively., C--Open oxygen or nitrous oxide is being used., D--An ESU, laser, or fiber-optic light is being used. 15:38:08 Physical assessment completed. ASA score P 2 - A patient with mild systemic disease as per Jl eMhta MD. 15:38:13 1) 90+ Normal kidney functon but urine findings or structural abnormalities or genetic trait point to kidney disease. 15:38:35 Fentanyl 100 mcg I.V. was administered by Miki Bird RN; for sedation; Verbal order read back and verified. 15:39:20 Maximum allowable contrast dose (3.7 X eGFR X 0.75)250 ml. 15:39:26 Sedation plan: IV Moderate Sedation Medication:Versed, Fentanyl 15:39:32 Use device set Femoral Dx 15:39:34 ACIST Syringe (63865) opened to sterile field. 15:39:35 Bag Decanter (2002) opened to sterile field. 15:39:35 Medline Cath Pack ([id number]) opened to sterile field. 15:39:37 ACIST Hand Control (73789) opened to sterile field. 15:39:38 ACIST Manifold (99618) opened to sterile field. 15:39:39 DIAGNOSTIC Multipack 5Fr catheter set (UA2811) opened to sterile field. 15:39:41 SHEATH 5FR Glenside (DNJ983) opened to sterile field. 15:39:42 EMERALD Guide Wire (831-884) opened to sterile field. 15:39:49 Procedure started. 15:39:55 Local anesthetic to right femoral artery with Lidocaine 2% by Jl Person MD.INITIAL ACCESS ONLY 15:40:14 Zero performed for pressure channel P1 15:43:31 WHOLEY 300cm 0.035 wire ([id number]) opened to sterile field. 15:43:35 Versed 2 mg I.V. was administered by Miki Bird RN; for sedation; Verbal order read back and verified. 15:44:04 WHOLEY 300 WIRE wire advanced. 15:44:32 SHEATH 5FR Glenside (ECH789) opened to sterile field. 15:44:56 A 5 Fr sheath was inserted into the Right Femoral artery 15:45:38 A MULTIPACK JL 4.0 5Fr catheter was advanced over the wire and used for Left Coronary Angiography. 15:46:03 LCA angiography performed. 15:47:13 Injector settings: Ml/sec: 3, Volume: 6, 15:48:11 Catheter removed. 15:48:34 A MULTIPACK 3DRC 5Fr catheter was advanced over the wire and used for Right Coronary Angiography. 15:49:11 RCA angiography performed. 15:49:17 Injector settings: Ml/sec: 3, Volume: 6, 15:49:20 Catheter removed. 15:49:27 A MULTIPACK Pigtail 5 Fr catheter was advanced over the wire and used for LV Angiography. 15:49:34 Injector settings: Ml/sec: 5, Volume: 15, 15:49:37 LV gram done using PLAZA 15:50:31 EF : 55 % 15:50:41 LV hemodynamics recorded. 15:50:43 Catheter removed. 15:51:20 EXOSEAL 5Fr (EX500) opened to sterile field. 15:51:22 Tegaderm 4 x 4 (1626W) opened to sterile field. 15:51:44 Sheath removed intact; hemostasis achieved with Exoseal to the Right Femoral artery. 15:52:15 Procedure ended.(Physican Out) 15:52:31 Contrast amount:Isovue 300 55ml. 15:52:42 Fluoroscopy time 01.50 minutes. 15:52:50 Fluoroscopy dose: 763 mGy 15:52:50 Flurop Dose total: 763 15:53:04 Dose Area Product 50757 mGy/cm. 15:53:08 Maximum allowable dose exceeded? No. 15:53:10 Sharps counted by scrub and verified by R.N. 15:53:13 Insertion/operative site no bleeding no hematoma. 15:53:19 Post-op/insertion site Right Femoral artery dressed using a 4 x 4 and Tegaderm. 15:53:24 Post right femoral artery:stable 15:53:32 Post-procedure physical assessment completed. ASA score P 2 - A patient with mild systemic disease as per Jl Mehta MD. 15:53:42 Post procedure rhythm: unchanged. 15:53:56 Estimated blood loss: 5 ml 15:53:58 Post procedure instruction explained to patient.Patient verbalizes understanding. 15:54:00 Patient needs reinforcement of post procedure teaching. 15:54:41 Procedure type changed to Cath procedure, Diagnostic procedure, LHC, C w/Coronaries, Sedation Charges, Moderate Sedation up to 15 minutes 15:54:43 Procedure and supply charges have been captured, reviewed, submitted an d are correct. 15:54:52 Procedure Complication : No complications 15:54:56 Vital chart was stopped 15:54:59 [facility] Findings: mild to moderate CAD (<70%) 15:55:06 Operative report dictated upon procedure completion. 15:55:08 See physician's report for complete and final results. 15:55:11 Report given to [facility]. 15:55:15 Patient transfered to [facility] with Bed. 15:56:00 Procedure ended. 15:56:00 Full Disclosure recording stopped 15:56:08 End room use (Document Last) Device Usage Item Name Manufacture Quantity Catalog Hospital Part Current Minimal L ot# / Number Charge Number Stock Stock Serial# Code ACIST Acist 1 00348 027716 386921 656841 20 Syringe Medical (73338) Systems Inc Bag Microtek 1 628577 53783 771230 5 Decanter Medical Inc. () Medline Medline 1 [id number] 734575 58783 741150 5 Cath Pack (SINY97614) ACIST Hand Acist 1 01323 099116 338147 421100 5 Control Medical (09574) Systems Inc ACIST Acist 1 75077 093748 943589 431208 5 Manifold Medical (96830) Systems Inc DIAGNOSTIC Cardinal 1 NR6326 996151 25641 582384 30 Multipack Health 5Fr catheter set (TH6429) SHEATH 5FR Terumo 2 RBB306 975670 201195 666075 5 Glenside (QWL315) EMERALD Cardinal 1 502455 787052 987705 533578 5 Guide Wire Health (502-029) WHOLEY Medtronic 1 [id number] 932163 194418 075190 3 300cm 0.035 wire (TEOE64051) MULTIPACK Cardinal 1 307403 5 JL 4.0 5Fr Health catheter MULTIPACK Cardinal 1 426498 5 3DRC 5Fr Health catheter MULTIPACK Cardinal 1 553415 5 Pigtail 5 Health Fr catheter EXOSEAL 5Fr Cardinal 1 EX500 983058 404627 370352 10 (EX500) Health Tegaderm 4 3M 1 1626W 605780 275453 384689 5 x 4 (1626W) Signature Audit Alba Stage Time Signature Unsigned Intra-Procedure 06/13/2019 Cindy 3:57:34 PM James RT(R) (CV) Intra-Procedure 06/13/2019 Miki 3:58:08 PM Marge KAPLAN Intra-Procedure 06/13/2019 Jl Miller 3:58:46 PM Raza DIETZ Signatures Performing Physician : Signature : Jl Mehta MD Date : Time : Monitor : Cindy Signature : James RT Date : Time : Nurse : Miki Bird Signature : RN Date : Time : [facility] [address] [place] [address]
[~2019-06-12 17:15] MED LIST changes: +BENTYL 20 MG TA20 MG PO; +QUESTRAN LIG1 PACKET PO
[2019-06-12 18:36] LABS: BASOPHILS 0.5 % (0-2); EOSINOPHILS 2.7 % (0-7); HEMATOCRIT 45.4 % (42.0-54.0); HEMOGLOBIN 14.6 g/dL (13.5-17.5); IMMATURE GRANULOCYTES 0.3 % (0-5); LYMPHOCYTES 23.1 % (15-50); MCH 31.5 pg (26.0-34.0); MCHC 32.2 g/dL (31.0-37.0); MCV 98.1 fL (80.0-100.0); MONOCYTES 9.8 % (2-11); NEUTROPHILS 63.6 % (40-80); RBC 4.63 10x6/uL (4.20-6.10); RDW 12.3 % (11.5-14.5); WBC 6.4 10x3/uL (4.8-10.8)
[2019-06-12 18:37] LABS: PLATELET COUNT 193 10x3/uL (130-400)
[2019-06-12 18:52] LABS: BILIRUBIN NEGATIVE (NEGATIVE); GLUCOSE NEGATIVE (NEGATIVE); KETONE NEGATIVE (NEGATIVE); NITRITE NEGATIVE (NEGATIVE); UROBILINOGEN NORMAL (NORMAL)
[2019-06-12 18:55] LABS: CALC OSMOLALITY 272 mosm/kg (275-300); CALCIUM 9.2 mg/dL (8.5-10.1); CHLORIDE - SERUM 102 mmol/L (98-107); CREATININE - SERUM 0.9 mg/dL (0.6-1.3); GLUCOSE 101 mg/dL (74-106); POTASSIUM - SERUM 3.9 mmol/L (3.5-5.1); SODIUM 137 mmol/L (136-145); UREA NITROGEN 11 mg/dL (7-18); eGFR NON AFRICAN AMERICAN > 90 mL/min (90-120)
[2019-06-12 19:04] LABS: ALBUMIN 4.1 g/dL (3.4-5.0); ALKALINE PHOSPHATASE 124 U/L (30-120); ALT (SGPT) 47 U/L (10-68); AMYLASE - SERUM 40 U/L (25-115); BILIRUBIN - TOTAL 0.29 mg/dL (0.2-1.3); LIPASE 73 U/L (73-393); PROTEIN - SERUM 7.7 g/dL (6.4-8.2)
[2019-06-12 19:07] LABS: TROPONIN-I < 0.017 ng/mL (0.000-0.060)
[2019-06-12 20:00] VITALS: BP 158/85
--- NOTE | 2019-06-12 20:16 | NUR ---
PT TO CT VIA STRETCHER.
--- NOTE | 2019-06-12 20:30 | NUR ---
PT BACK FROM CT.
--- NOTE | 2019-06-12 21:50 | NUR ---
PATIENT ARRIVED TO FLOOR VIA WHEELCHAIR. PATIENT IS ALERT AND ORIENTED, RESTING COMFORTABLY IN BED. RESPIRATIONS ARE EVEN AND UNLABORED. NO S/S OF DISTRESS. NO C/O PAIN. CALL LIGHT WITHIN REACH. PATIENT CURRENTLY TALKING WITH MAGALIS JOYA APN. WILL CPOC.
[2019-06-12] MEDS ORDERED: KLOR-CON 1010 MEQ PO (22:01)
[2019-06-12] MEDS ORDERED: HYDROCODON-ACE1 EA10 PO (22:02)
[2019-06-13 00:04] LABS: CKMB 1.4 U/L (0.0-3.6); CREATINE KINASE 93 UL (21-232)
[2019-06-13 00:07] LABS: TROPONIN-I < 0.017 ng/mL (0.000-0.060)
[2019-06-13 01:01] VITALS: Ht 188 cm; Wt 126.6 kg
[2019-06-13 04:00] VITALS: BP 126/74
[2019-06-13 05:47] LABS: BASOPHILS 0.5 % (0-2); EOSINOPHILS 3.6 % (0-7); HEMATOCRIT 41.1 % (42.0-54.0); HEMOGLOBIN 12.9 g/dL (13.5-17.5); IMMATURE GRANULOCYTES 0.2 % (0-5); LYMPHOCYTES 32.9 % (15-50); MCH 31.2 pg (26.0-34.0); MCHC 31.4 g/dL (31.0-37.0); MCV 99.5 fL (80.0-100.0); MONOCYTES 9.7 % (2-11); NEUTROPHILS 53.1 % (40-80); PLATELET COUNT 155 10x3/uL (130-400); RBC 4.13 10x6/uL (4.20-6.10); RDW 12.5 % (11.5-14.5)
[2019-06-13 06:04] LABS: WBC 4.1 10x3/uL (4.8-10.8)
[2019-06-13 06:08] LABS: APTT 29.3 SECONDS (22.8-39.4); INR 1.01 (0.85-1.17); PROTIME 13.2 SECONDS (11.6-15.0)
[2019-06-13 06:19] LABS: CALC OSMOLALITY 277 mosm/kg (275-300); CALCIUM 8.4 mg/dL (8.5-10.1); CARBON DIOXIDE 27.8 mmol/L (21.0-32.0); CHLORIDE - SERUM 104 mmol/L (98-107); CKMB 1.6 U/L (0.0-3.6); CREATINE KINASE 86 UL (21-232); CREATININE - SERUM 0.9 mg/dL (0.6-1.3); GLUCOSE 94 mg/dL (74-106); MAGNESIUM - SERUM 1.9 mg/dL (1.8-2.4); PHOSPHOROUS 3.5 mg/dL (2.5-4.9); SODIUM 140 mmol/L (136-145); UREA NITROGEN 10 mg/dL (7-18); eGFR NON AFRICAN AMERICAN > 90 mL/min (90-120)
[2019-06-13 06:21] LABS: TROPONIN-I < 0.017 ng/mL (0.000-0.060)
--- NOTE | 2019-06-13 07:20 | NUR ---
RECIEVE REPORT. ALERT AND ORIENTED X4. SITTING UP IN BED. REQUESTING PAIN MEDICATION. FOLLOW PAIN MANAGMENT ORDERED. NO SIGNS OF DISTRESS. CONTINUE PLAN OF CARE AND SAFETY PRECAUTIONS.
[2019-06-13 08:00] VITALS: BP 146/83
[2019-06-13 08:54] LABS: CHOL - HDL RATIO 6.6 ratio (2.3-4.9); LDL-HDL RATIO 4.2 ratio (1.5-3.5)
[2019-06-13 13:25] VITALS: BP 149/84
--- NOTE | 2019-06-13 16:10 | NUR ---
ARRIVE BACK TO ROOM VIA BED FROM PURCHASING OFFICER. ALERT AND ORIENTED X4. RT GROIN DRESSING CLEAN DRY INTACT. FREE FROM BLEEDING. FREE FROM HEMATOMA. PULSE PALPABLE BILATERALLY. BP-117/78, HR-65 SINUS RYTHM ON TELEMETRY, O2-92% RA. CONTINUE PLAN OF CARE AND SAFETY PRECAUTIONS. ENCOURAGE TO REMAIN FLAT FOR NEXT 2 HOURS.
[2019-06-13] MEDS ORDERED: LIPITOR20 MG PO (18:46)
--- NOTE | 2019-06-13 19:40 | NUR ---
RECEIVED BEDSIDE REPORT. PATIENT IS ALERT AND ORIENTED, RESTING COMFORTABLY IN BED. RESPIRATIONS ARE EVEN AND UNLABORED. ASSESSED RIGHT GROIN. NO S/S OF BLEEDING, BRUISING OR HEMATOMA. NEEDS MET. CALL LIGHT WITHIN REACH. WILL CPOC.
[2019-06-13 21:12] VITALS: BP 132/81
[2019-06-13 23:58] VITALS: BP 127/77
[2019-06-14 05:17] VITALS: BP 121/75
[2019-06-14 06:01] LABS: BASOPHILS 0.4 % (0-2); HEMATOCRIT 41.2 % (42.0-54.0); HEMOGLOBIN 12.9 g/dL (13.5-17.5); IMMATURE GRANULOCYTES 0.2 % (0-5); LYMPHOCYTES 28.1 % (15-50); MCH 31.4 pg (26.0-34.0); MCHC 31.3 g/dL (31.0-37.0); MCV 100.2 fL (80.0-100.0); MONOCYTES 10.2 % (2-11); NEUTROPHILS 58.1 % (40-80); PLATELET COUNT 174 10x3/uL (130-400); RBC 4.11 10x6/uL (4.20-6.10); RDW 12.4 % (11.5-14.5); WBC 4.6 10x3/uL (4.8-10.8)
[2019-06-14 06:43] LABS: CALC OSMOLALITY 277 mosm/kg (275-300); CARBON DIOXIDE 27.7 mmol/L (21.0-32.0); CHLORIDE - SERUM 105 mmol/L (98-107); CREATININE - SERUM 0.9 mg/dL (0.6-1.3); GLUCOSE 101 mg/dL (74-106); MAGNESIUM - SERUM 2.1 mg/dL (1.8-2.4); PHOSPHOROUS 4.6 mg/dL (2.5-4.9); POTASSIUM - SERUM 3.9 mmol/L (3.5-5.1); SODIUM 140 mmol/L (136-145); UREA NITROGEN 9 mg/dL (7-18); eGFR NON AFRICAN AMERICAN > 90 mL/min (90-120)
[2019-06-14 08:03] VITALS: BP 122/82
--- NOTE | 2019-06-14 09:08 | OP ---
PATIENT NAME: SUNIL ALEGRIA MEDICAL RECORD: [id number] :58 LOCATION:D.M2 D.2115 ADMISSION DATE:06/12/19 SURGEON: SARA QUIÑONEZ MD DATE OF OPERATION: 06/13/2019 PROCEDURE: Left heart catheterization, selective coronary angiography, right femoral artery approach. CATHETERS: A 5-Citizen Of [place] sheath, 5/4 left and right Jeff, 5/4 pig. The procedure was well tolerated. The patient was returned to aguilar. Sheath was removed. ExoSeal device placed. FINDINGS: Left ventriculography in 30-degree PLAZA view: Normal wall motion and normal systolic function. CORONARY ANATOMY: LEFT MAIN: Left main is free of disease. LAD: LAD has previously placed stent, it is widely patent without evidence of restenosis. No progression of wiyot disease. CIRCUMFLEX: Luminal irregularities. No stenosis greater than 40%. RIGHT CORONARY ARTERY: Dominant artery, gives rise to PDA, free of disease. IMPRESSION: Widely patent stents. No significant progression of wiyot disease. For medical management of risk factor modification. Okay for surgery from CV standpoint. TRANSINT:[id number] Voice Confirmation ID: [id number] DOCUMENT ID: [id number] SARA QUIÑONEZ MD at 0908 CC: [id number] DICTATION DATE: 06/13/19 1610 REGISTERED NURSE FETAL: 06/13/19 2207 ADM IN [facility] [address] [place] [address]
--- NOTE | 2019-06-14 13:34 | NUR ---
PT STATES HIS IS ON HER WAY FOR TRANSPORTATION. NO CURRENT NEEDS. DISCHARGE TEACHING PROVIDED AND PAPERS SIGNED. PT DENIES ANY QUESTIONS OR CONCERNS. ALL BELONGINGS COLLECTED. D/C PTS R.HAND PIV WITH CATHETER TIP FULLY INTACT.
--- NOTE | 2019-06-14 16:05 | MORECARE ---
CASE MANAGEMENT DISCHARGE SUMMARY PATIENT: KYLE VIZCAINO UNIT: [id number] ADM DATE: 06/12/19 AGE: 59 : 58 SEX: M ROOM/BED: D.2115 AUTHOR: SINGH DOS SANTOS PHYSICIAN: REFERRING PHYSICIAN: MARY CRUZ MD DATE OF SERVICE: 06/14/19 Discharge Plan Patient Name: KYLE VIZCAINO Facility: [facility]:[place] : 1960 Planned Disposition: Home Anticipated Discharge Date: 06/14/19 Discharge Date: 06/14/2019 Expected LOS: 2 Initial Reviewer: [email or web address] Initial Review Date: 06/12/2019 Generated: 06/14/19 5:05 pm DCP- Discharge Planning Updated by [email or web address]: Shyanne Cordon on 06/13/19 4:[address] Patient states he lives at his home with his spouse, Theres @#[phone]. Independent with his care, uses no DME. Denies need for HHS, Rehab, SNF. Patient states he feels safe returning to his home. PCP: Dr. Cruz. Pharmacy: [facility] in [place]. Patient voices no needs at this time. Coverage Notice Reviewer: [email or web address] - Shyanne Cordon Notice Issued Date-Time: 06/13/2019 17:33 Notice Type: Medicare Outpatient Observation Notice Notice Delivered To: Patient Relationship to Patient: Self Still Cleaner Name: Kyle Vizcaino Delivery Method: MAIL - Mail Areli Days: Prior Verbal Notification: Recipient Understood Notice: Yes Recipient Signature: Yes Med Rec Note Co-signed by Attending: Coverage Notice Comment: COLLINS signed by patient, original given to him. Original on chart. Patient Name: KYLE VIZCAINO Page [phone] at 1605 All edits/amendments must be made on the electronic document DICTATION DATE: 06/14/19 1605 GAMING DEPARTMENT HEAD: ASHLEY 06/14/19 1605 RPT#: [id number] DC DATE:06/14/19 STATUS: DIS IN [place] [address] [place] [address] END OF REPORT
--- NOTE | 2019-06-14 16:15 | MORECARE ---
CASE MANAGEMENT DISCHARGE SUMMARY PATIENT: KYLE VIZCAINO UNIT: [id number] ADM DATE: 06/12/19 AGE: 59 : 58 SEX: M ROOM/BED: D.2115 AUTHOR: SINGH DOS SANTOS PHYSICIAN: REFERRING PHYSICIAN: MARY CRUZ MD DATE OF SERVICE: 06/14/19 Discharge Plan Patient Name: KYLE VIZCAINO Facility: [facility]:[place] : 1960 Planned Disposition: Home Anticipated Discharge Date: 06/14/19 Discharge Date: 06/14/2019 Expected LOS: 2 Initial Reviewer: [email or web address] Initial Review Date: 06/12/2019 Generated: 06/14/19 5:15 pm DCP- Discharge Planning Updated by [email or web address]: Shyanne Cordon on 06/13/19 4:[address] Patient states he lives at his home with his spouse, Theres @#[phone]. Independent with his care, uses no DME. Denies need for HHS, Rehab, SNF. Patient states he feels safe returning to his home. PCP: Dr. Cruz. Pharmacy: [facility] in [place]. Patient voices no needs at this time. Coverage Notice Reviewer: [id number] - Shyanne Cordon Notice Issued Date-Time: 06/13/2019 17:33 Notice Type: Medicare Outpatient Observation Notice Notice Delivered To: Patient Relationship to Patient: Self Supply Clerk Name: Kyle Vizcaino Delivery Method: MAIL - Mail Areli Days: Prior Verbal Notification: Recipient Understood Notice: Yes Recipient Signature: Yes Med Rec Note Co-signed by Attending: Coverage Notice Comment: COLLINS signed by patient, original given to him. Original on chart. Last DP export: 06/14/19 3:05 p Patient Name: KYLE VIZCAINO Page [phone] at 1615 All edits/amendments must be made on the electronic document DICTATION DATE: 06/14/19 1615 AUTOMATIC DRY STARCH OPERATOR: ASHLEY 06/14/19 1615 RPT#: [id number] DC DATE:06/14/19 STATUS: DIS IN [place] [id number] [place] [address] END OF REPORT
== END 2019-06-14 14:18 | disposition home or self-care (01) ==
LOC: D.ER 17:15 → D.M2 19:22 → OBSVTIME 19:51 → D.M2 06-14 14:18
PROVIDERS: Family Medicine; Internal Medicine Interventional Cardiology; ADMIT Family Medicine; ATTEND Family Medicine
DX: I24.9 Acute ischemic heart disease, unspecified (principal); I10 Essential (primary) hypertension; Z86.73 Personal history of transient ischemic attack (TIA), and cerebral infarction without residual deficits; K21.9 Gastro-esophageal reflux disease without esophagitis; E78.5 Hyperlipidemia, unspecified; I25.110 Atherosclerotic heart disease of native coronary artery with unstable angina pectoris; N40.0 Benign prostatic hyperplasia without lower urinary tract symptoms; F32.9 Major depressive disorder, single episode, unspecified

== ENCOUNTER → 2019-06-29 08:53 | Outpatient (CLI) | payer MEDICARE ==
[~2019-06-29 08:53] MED LIST changes: +KLOR-CON 1010 MEQ PO; +LIPITOR20 MG PO
--- NOTE | 2019-06-29 10:46 | NUR ---
PT IS AT MODERATE RISK FOR SUICIDE PER ASSESSMENT. PT HAS NO PLAN AND HAS NEVER ATTEMPTED SUICIDE BEFORE. PT STATED, "I JUST WISHT I WOULD GO TO SLEEP AND NOT WAKE UP." RESOURCES GIVEN AND VERBALIZED UNDERSTANDING. NO SITTER REQUIRED.
== END | disposition home or self-care (01) ==
LOC: D.OPS 08:53
PROVIDERS: ATTEND Surgery
DX: K21.9 Gastro-esophageal reflux disease without esophagitis (principal)

== ENCOUNTER 2019-07-11 05:03 | Inpatient (IN) | payer MEDICARE ==
[2019-07-10 12:30] LABS: ANION GAP 11.8 mmol/L (8-16); CARBON DIOXIDE 29.5 mmol/L (21.0-32.0); CREATININE - SERUM 1.1 mg/dL (0.6-1.3); POTASSIUM - SERUM 4.3 mmol/L (3.5-5.1)
[2019-07-10 12:37] LABS: HEMATOCRIT 44.5 % (42.0-54.0); HEMOGLOBIN 14.6 g/dL (13.5-17.5); LYMPHOCYTES 26.8 % (15-50); MCH 31.1 pg (26.0-34.0); MCHC 32.8 g/dL (31.0-37.0); MCV 94.9 fL (80.0-100.0); MEAN PLATELET VOLUME 8.6 fL (7.4-10.4); NEUTROPHILS 63.7 % (40-80); PLATELET COUNT 187 10x3/uL (130-400); RBC 4.69 10x6/uL (4.20-6.10); WBC 5.8 10x3/uL (4.8-10.8)
[~2019-07-11] VITALS: Ht 190.5 cm; Wt 136.1 kg
[2019-07-11 06:16] VITALS: BP 132/81; BMI 37.5
--- NOTE | 2019-07-11 06:32 | NUR ---
POSITIVE FOR BEHAVIORAL HEALTH ASSESSMENT, JUST ASSESSED A FEW WEEKS AGO. REFUSES ANOTHER SCREENING AT THIS TIME.
--- NOTE | 2019-07-11 08:44 | NUR ---
0835: ATTEMPTED TO REACH , SALEEM, AT AND WITH NO ANSWER.
--- NOTE | 2019-07-11 15:39 | NUR ---
1535 PATIENT AWAKE ANSWERING QUESTIONS APPROPRIATELY. MEETS ANESTHESIA DISCHARGE CRITERIA
[2019-07-11 15:48] VITALS: BP 122/65
--- NOTE | 2019-07-11 16:02 | NUR ---
RECEIVED PT FROM CITLALI KAPLAN IN [place], PT IS ASLEEP, EASILY AWAKENED, NGT TO LT STEFF CHRISS, ABD HAS 3 LAP SITES AND A MIDLINE INCISION, ALL CDI, SCD'S ON, WIRING TECHNICIAN STARTED AT 0.2/12/02. IV TO RT FA N/S AT 125. O2 IS AT 4L NC PER REPORT PT USES CPAP AT NIGHT. PT EASILY AWAKENED, VOICED NO NEEDS AND WENT RIGHT BACK TO SLEEP. ASSUME PT CARE AND CONTINUE WITH CARE PLAN
[2019-07-11 17:54] VITALS: BP 134/73; BMI 37.5
--- NOTE | 2019-07-11 19:40 | NUR ---
LYING IN BED. DROWSY. AWAKENED FOR ASSESSMENT. BANDAID X3 NOTED TO ABD. MIDLINE DRSG NOTED AND OLD DRAINAGE MARKED. ABD IS DISTENDED AND FIRM. DENIES PAIN. CANNON FIRE DIRECTION SPECIALIST DILAUDID IN USE. NS @ 125 MLHR INFUSING IN RT FOREARM. RESP SHALLOW, NONLABORED. O2 @ 4L/NC. NGT TO LT NARE TO LIS WITH GREENISH/YELLOW FLUID IN TUBING. SCDS IN USE BILAT. USES URINAL. [place]. BED ALARM ON FOR PT SAFETY. NO DISTRESS. V/S STABLE. SR ELEVATED X2. CL IN REACH.
[2019-07-11 21:06] VITALS: BP 144/84
[2019-07-12 00:47] VITALS: BP 124/69
--- NOTE | 2019-07-12 04:07 | NUR ---
HAS BEEN UP MOST OF THE NIGHT UNTIL NOW. RESTING WITH EYES CLOSED. RESP NONLABORED. NO DISTRESS. CL IN REACH.
[2019-07-12 05:44] LABS: BASOPHILS 0 % (0-2); EOSINOPHILS 0 % (0-7); HEMATOCRIT 37.9 % (42.0-54.0); HEMOGLOBIN 11.8 g/dL (13.5-17.5); IMMATURE GRANULOCYTES 0.2 % (0-5); LYMPHOCYTES 4.9 % (15-50); MCH 31.6 pg (26.0-34.0); MCHC 31.1 g/dL (31.0-37.0); MEAN PLATELET VOLUME 9.3 fL (7.4-10.4); MONOCYTES 9.8 % (2-11); NEUTROPHILS 85.1 % (40-80); PLATELET COUNT 161 10x3/uL (130-400); RDW 12.9 % (11.5-14.5)
[2019-07-12 06:10] VITALS: BP 114/62
[2019-07-12 06:13] LABS: ANION GAP 10.7 mmol/L (8-16); CALCIUM 7.9 mg/dL (8.5-10.1); CARBON DIOXIDE 26.2 mmol/L (21.0-32.0); CREATININE - SERUM 1.1 mg/dL (0.6-1.3); POTASSIUM - SERUM 4.9 mmol/L (3.5-5.1)
[2019-07-12 06:14] LABS: MCV 101.3 fL (80.0-100.0); RBC 3.74 10x6/uL (4.20-6.10); WBC 9.5 10x3/uL (4.8-10.8)
--- NOTE | 2019-07-12 07:15 | NUR ---
REC'D IN BED AWAKE AND ALERT. RESP EVEN AND UNLABORED WITH NO DISTRESS NOTED. HAS O2 IN USE VIA N/C @ 4 L/M. DRESSING NOTED TO MIDLINE INCISION AND BAND AIDS TO 3 LAP SITES. NO C/O NOTED OR VOICED. HAS DILUADID DIRECTOR OF OUTREACH FOR PAIN CONTROL. ASSESSMENT COMPLETED. C/L IN REACH AT BEDSIDE.
[2019-07-12 08:00] VITALS: BP 120/74
[2019-07-12 12:00] VITALS: BP 136/74
[2019-07-12 14:37] VITALS: Ht 190.5 cm; Wt 136.1 kg
--- NOTE | 2019-07-12 15:00 | NUR ---
I have reviewed this patient and I concur with the Shift Assessment completed by the Licensed Practical Nurse today this shift.
--- OUTSIDE RECORDS SUMMARY | 2019-07-12 15:24 | XMS Report ---
Demographics + + + | Address | [address] | | | [place] [address] | + + + | Home Phone | | + + + | Preferred Language | Unknown | + + + | Marital Status | Single | + + + | Moravian Affiliation | Unknown | + + + | Race | White | + + + | Ethnic Group | Not or | + + + Author + + + | Author | [facility], | | | [facility] | | | [place] | + + + | Organization | [facility], | | | [facility] | | | [place] | + + + | Address | [address] [place] [address] | | | [place] [address] | + + + | Phone | [phone] | + + + Care Team Providers + +------+ + | Care Video Presentation Operator Name | Role | Phone | + +------+ + 2 | Unavailable | + +------+ + Reason for Referral Reason for Visit Gastroesophageal reflux disease Assessment No assessment recorded. Patient Targets + + + + | Encounter Date | Instructions | Goals | | | | | | | | | + + + + | 07/11/2019 | | | | | | | | | | | + + + + Plan of Treatment + + + + + + + | Reminders | | Order | Submit | Provider | Details | | | | Date | Date | | | | | | | | | | | | | | | | | | | | | | | | | | | | | | | + + + + + + + | | | | | | | | | | | | Fahad | | | | | 0 07:30AM | | Prashanth, | | | | | | | | | | | | | | | | | Appointme | Surgery | | | | | | nts | | | | | | | | | | | | | | | | | | | | | | | | | | | | | | | | | | | | | | | | | | | | | | | | | | | | | | | | | | | | | | + + + + + + + | | | | | | | | | | 05//202 | | Eleonora | | | | | 0 10:20AM | | [facility] | | | | | | | ft ANP | | | | Post | | | | | | | Visit | | | | | | | | | | | | | | | | | | | | | | | | | | | | | | | | | | | | | | | | | | | | | | | | | | | | | | | | | | | | | + + + + + + + | | None | | | | | | | recorded. | | | | | | | | | | | | | | | | | | | | Lab | | | | | | | | | | | | | | | | | | | | | | | | | | | | | | | | | | | | | | | | | | | | | | | | | | | | | | | | | | | | | | + + + + + + + | | | | | | | | | | | | [facility] | | | | | 0 | | Park | | | | | | 0 | Medical | | | | | | | Center, | | | Referral | gastroent | | | [address] | | | | erology | | | Medical | | | | referral | | | [address], [address] | | | | | | | [place], | | | | | | | [place], | | | | | | | [id number], Ph | | | | | | | [phone]) | | | | | | | [phone] | | | | | | | | | | | | | | | | | | | | | | | | | | | | | | + + + + + + + | | None | | | | | | | recorded. | | | | | | | | | | | | | | | | | | | | | | | | | | | Procedure | | | | | | | s | | | | | | | | | | | | | | | | | | | | | | | | | | | | | | | | | | | | | | | | | | | | | | | | | | | | | | | | | | | | | | + + + + + + + | | None | | | | | | | recorded. | | | | | | | | | | | | | | | | | | | | | | | | | | | Surgeries | | | | | | | | | | | | | | | | | | | | | | | | | | | | | | | | | | | | | | | | | | | | | | | | | | | | | | | | | | | | | | + + + + + + + | | None | | | | | | | recorded. | | | | | | | | | | | | | | | | | | | | | | | | | | | Imaging | | | | | | | | | | | | | | | | | | | | | | | | | | | | | | | | | | | | | | | | | | | | | | | | | | | | | | | | | | | | | | + + + + + + + Results +--------+--------+--------+--------+--------+--------+--------+--------+ | Date | Name | Descri | Value | Unit | Range | Abnorm | Provid | | | | ption | | | | al | er | | | | | | | | Flag | Detail | | | | | | | | | | | | | | | | | | | | | | | | | | | | | | | | | | | | | | | | | | | | | | | | | | | | | | | +--------+--------+--------+--------+--------+--------+--------+--------+ | | esopha | | No | | | | | | | geal | | observ | | | | | | | manome | | ation | | | | | | | try | | record | | | | | | | (PROC) | | ed. | | | | | | | | | | | | | | | | | | | | | | | | | | | | | | | | | | | | | | | | | | | | | | | | | | | | | | | | | | | +--------+--------+--------+--------+--------+--------+--------+--------+ Problems +---------+---------+---------+---------+---------+---------+---------+ | Name | Status | Last | Onset | Resolut | Lateral | Problem | | | | Modifie | Date | ion | ity | Type | | | | d Date | | Date | | | | | | | | | | | | | | | | | | | | | | | | | | | | | | | | | | | | | | | | | | | +---------+---------+---------+---------+---------+---------+---------+ | Hyperte | Active | | | | | | | nsive | | 019 | 019 | | | | | disorde | | | | | | | | r | | | | | | | | | | | | | | | | | | | | | | | | | | | | | | | | | | | | | | | | | | | | | | | +---------+---------+---------+---------+---------+---------+---------+ | 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 | | | | | | | | is | | | | | | | | | | | | | | | | | | | | | | | | | | | | | | | | | | | | | | | | | | | | | | | +---------+---------+---------+---------+---------+---------+---------+ | Congest | 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 | | | | | heart | | | | | | | | failure | | | | | | | | | | | | | | | | | | | | | | | | | | | | | | | | | | | | | | | | | | | | | | | | | | | | | | | +---------+---------+---------+---------+---------+---------+---------+ | Gastroe | Active | | | | | | | sophage | | 020 | 020 | | | | | al | | | | | | | | reflux | | | | | | | | disease | | | | | | | | with | | | | | | | | hiatal | | | | | | | | hernia | | | | | | | | | | | | | | | | | | | | | | | | | | | | | | | | | | | | | | | | | | | | | | | +---------+---------+---------+---------+---------+---------+---------+ | Arthrit | Active | | | | | | | is | | 019 | 019 | | | | | | | | | | | | | | | | | | | | | | | | | | | | | | | | | | | | | | | | | | | | +---------+---------+---------+---------+---------+---------+---------+ | 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 | | | | | | | | | 020 | 020 | | | | | abdomin | | | | | | | | al pain | | | | | | | | | | | | | | | | | | | | | | | | | | | | | | | | | | | | | | | | | | | | | | | | | | | | | | | +---------+---------+---------+---------+---------+---------+---------+ | History | Active | | | | | | | of TIA | | 019 | 019 | | | | | | | | | | | | | | | | | | | | | | | | | | | | | | | | | | | | | | | | | | | | | | | | | | | | +---------+---------+---------+---------+---------+---------+---------+ Procedures Surgical History + + + + + | Date | Name | Laterality | Status | | | | | | | | | | | | | | | | + + + + + | | | | active | | | | | | | | | | | | | cholecystectomy | | | | | | | | | | | | | | | | | | | | | | | | | | | | + + + + + | | | | active | | | | | | | | | | | | | Hernia Repair | | | | | | | | | | | | | | | | | | | | | | | | | | | | + + + + + Imaging Results None recorded. Medical Equipment None Reported. Allergies + + + + + + | Name | Reaction | Severity | Status | Onset | | | | | | | | | | | | | | | | | | | + + + + + + | | | | | | | | | | | | | | | | | | | | | | | | | codeine | | | active | | | | | | | | | | | | | | | | | | | | | | | | | | | | | | | | | | | | | | | | | | | | + + + + + + | | | | | | | | | | | | | | | | | | | | | | | | | Compazine | | | active | | | | | | | | | | | | | | | | | | | | | | | | | | | | | | | | | | | | | | | | | | | | + + + + + + | | | | | | | | | | | | | | | | | | | | | | | | | Demerol | | | active | | | | | | | | | | | | | | | | | | | | | | | | | | | | | | | | | | | | | | | | | | | | + + + + + + | | | | | | | | | | | | | | | | | | | | | | | | | Reglan | | | active | | | | | | | | | | | | | | | | | | | | | | | | | | | | | | | | | | | | | | | | | | | | + + + + + + Medications + + + + + + + | Name | Sig | Start | Stop Date | Status | Note | | | | Date | | | | | | | | | | | | | | | | | | | | | | | | | | | | | | | | + + + + + + + | | | | | completed | | | | | | | | | | | | | | | | | | | | | | | | | | | 0 | | | | | | | | | | | | | | | | | | furosemid | | | | | | | e 40 mg | | | | | | | tablet | | | | | | | | | | | | | | | | | | | | | | | | | | | | | | | | | | | | | | | | | | | | | | | | | | | | | | | | | | | | | | | | | | | | | | | | | | | | + + + + + + + | | | | | completed | | | | | | | | | | | | | | | | | | | | | | | | | TAKE | | 0 | | | | | 1 TABLET | | | | | | | BY MOUTH | | | | | | clonidine | TWICE | | | | | | HCl 0.1 | DAILY | | | | | | mg tablet | NEEDED | | | | | | | FOR BLOOD | | | | | | | PRESSURE | | | | | | | 160 100 | | | | | | | | | | | | | | | | | | | | | | | | | | | | | | | | | | | | | | | | | | | | | | | | | | | | | | | | | | | | | + + + + + + + | | | | | completed | | | | | | | | | | | | | | | | | | | | | | | | | TAKE | | 0 | | | | | 1 TO 2 | | | | | | | TABLETS | | | | | | trazodone | BY MOUTH | | | | | | 50 mg | AT | | | | | | tablet | BEDTIME | | | | | | | NEEDED | | | | | | | FOR | | | | | | | INSOMNIA | | | | | | | | | | | | | | | | | | | | | | | | | | | | | | | | | | | | | | | | | | | | | | | | | | | | | | | | | | | | | + + + + + + + | | | | | active | | | | | | | | | | | | | | | | | | | | | | | | | TAKE | | | | | | | 1 CAPSULE | | | | | | | BY MOUTH | | | | | | Stool | ONCE | | | | | | Softener | DAILY | | | | | | 100 mg | WHILE | | | | | | capsule | TAKING | | | | | | | PAIN | | | | | | | MEDICATIO | | | | | | | N | | | | | | | | | | | | | | | | | | | | | | | | | | | | | | | | | | | | | | | | | | | | | | | | | | | | | | | | | | | | | + + + + + + + | | | | | active | | | | | | | | | | | | | | | | | | | | | | | | | | | | | | | | | | | | | | | | | | | | | hydrocodo | | | | | | | ne 5 | | | | | | | mg-acetam | | | | | | | inophen | | | | | | | 325 mg | | | | | | | tablet | | | | | | | | | | | | | | | | | | | | | | | | | | | | | | | | | | | | | | | | | | | | | | | | | | | | | | | | | | | | | | | | | | | | | | | | | | | | + + + + + + + | | | | | active | | | | | | | | | | | | | | | | | | | | | | | | | | | | | | | | | | | | | | | | | | | | | ondansetr | | | | | | | on HCl 8 | | | | | | | mg tablet | | | | | | | | | | | | | | | | | | | | | | | | | | | | | | | | | | | | | | | | | | | | | | | | | | | | | | | | | | | | | | | | | | | | | | | | | | | | | | | | | | | + + + + + + + | | | | | active | | | | | | | | | | | | | | | | | | | | | | | | | | | | | | | | | | | | | | | | | | | | | sucralfat | | | | | | | e 1 gram | | | | | | | tablet | | | | | | | | | | | | | | | | | | | | | | | | | | | | | | | | | | | | | | | | | | | | | | | | | | | | | | | | | | | | | | | | | | | | | | | | | | | | + + + + + + + | | | | | completed | | | | | | | | | | | | | | | | | | | | 03/13/202 | | | | | | | 0 | | | | | | | | | | | | | | | | | | ondansetr | | | | | | | on HCl 4 | | | | | | | mg tablet | | | | | | | | | | | | | | | | | | | | | | | | | | | | | | | | | | | | | | | | | | | | | | | | | | | | | | | | | | | | | | | | | | | | | | | | | | | | | | | | | | | + + + + + + + | | | | | active | | | | | | | | | | | | | | | | | | | | | | | | | TAKE | | | | | | | 1 TABLET | | | | | | | BY MOUTH | | | | | | clonazepa | THREE | | | | | | m 1 mg | TIMES | | | | | | tablet | DAILY | | | | | | | NEEDED | | | | | | | FOR | | | | | | | ANXIETY | | | | | | | | | | | | | | | | | | | | | | | | | | | | | | | | | | | | | | | | | | | | | | | | | | | | | | | | | | | | | + + + + + + + | | | | | completed | | | | | | | | | | | | | | | | | | | | 05/11/ | | | | | TAKE | | 0 | | | | | 1 TABLET | | | | | | | BY MOUTH | | | | | | potassium | ONCE | | | | | | chloride | DAILY FOR | | | | | | ER 10 | 30 DAYS | | | | | | mEq | | | | | | | tablet,ex | | | | | | | tended | | | | | | | release | | | | | | | | | | | | | | | | | | | | | | | | | | | | | | | | | | | | | | | | | | | | | | | | | | | | | | | | | | | | | | | | | | | | | | | | | | | | + + + + + + + | | | | | completed | | | | | | | | | | | | | | | | | | | | 05/11/ | | | | | | | 0 | | | | | | | | | | | | | | | | | | metronida | | | | | | | zole 500 | | | | | | | mg tablet | | | | | | | | | | | | | | | | | | | | | | | | | | | | | | | | | | | | | | | | | | | | | | | | | | | | | | | | | | | | | | | | | | | | | | | | | | | | | | | | | | | + + + + + + + | | | | | active | | | | | | | | | | | | | | | | | | | | | | | | | Take | | | | | | | 1 tablet | | | | | | | every day | | | | | | Plavix 75 | by oral | | | | | | mg | route. | | | | | | tablet | | | | | | | | | | | | | | | | | | | | | | | | | | | | | | | | | | | | | | | | | | | | | | | | | | | | | | | | | | | | | | | | | | | | | | | | | | | | + + + + + + + | | | | | completed | | | | | | | | | | | | | | | | | | | | 03/13/202 | | | | | | | 0 | | | | | | | | | | | | | | | | | | ciproflox | | | | | | | acin 500 | | | | | | | mg tablet | | | | | | | | | | | | | | | | | | | | | | | | | | | | | | | | | | | | | | | | | | | | | | | | | | | | | | | | | | | | | | | | | | | | | | | | | | | | | | | | | | | + + + + + + + | | | | | active | | | | | | | | | | | | | | | | | | | | | | | | | TAKE | | | | | | | 1 TABLET | | | | | | | BY MOUTH | | | | | | hydrocodo | EVERY 12 | | | | | | ne 10 | HOURS PRN | | | | | | mg-acetam | | | | | | | inophen | | | | | | | 325 mg | | | | | | | tablet | | | | | | | | | | | | | | | | | | | | | | | | | | | | | | | | | | | | | | | | | | | | | | | | | | | | | | | | | | | | | | | | | | | | | | | | | | | | + + + + + + + | | | | | active | | | | | | | | | | | | | | | | | | | | | | | | | | | | | | | | | | | | | | | | | | | | | omeprazol | | | | | | | e 40 mg | | | | | | | capsule,d | | | | | | | elayed | | | | | | | release | | | | | | | | | | | | | | | | | | | | | | | | | | | | | | | | | | | | | | | | | | | | | | | | | | | | | | | | | | | | | | | | | | | | | | | | | | | | + + + + + + + | | | | | active | | | | | | | | | | | | | | | | | | | | | | | | | | | | | | | | | | | | | | | | | | | | | pramipexo | | | | | | | le 0.5 mg | | | | | | | tablet | | | | | | | | | | | | | | | | | | | | | | | | | | | | | | | | | | | | | | | | | | | | | | | | | | | | | | | | | | | | | | | | | | | | | | | | | | | | + + + + + + + | | | | | completed | | | | | | | | | | | | | | | | | | | | 03/13/202 | | | | | | | 0 | | | | | | | | | | | | | | | | | | oxycodone | | | | | | | -acetamin | | | | | | | ophen 5 | | | | | | | mg-325 mg | | | | | | | tablet | | | | | | | | | | | | | | | | | | | | | | | | | | | | | | | | | | | | | | | | | | | | | | | | | | | | | | | | | | | | | | | | | | | | | | | | | | | | + + + + + + + | | | | | completed | | | | | | | | | | | | | | | | | | | | 05/11/202 | | | | | | | 0 | | | | | | | | | | | | | | | | | | potassium | | | | | | | chloride | | | | | | | ER 20 | | | | | | | mEq | | | | | | | tablet,ex | | | | | | | tended | | | | | | | release(p | | | | | | | art/cryst | | | | | | | ) | | | | | | | | | | | | | | | | | | | | | | | | | | | | | | | | | | | | | | | | | | | | | | | | | | | | | | | | | | | | | | | | | | | | | | | | | | | | + + + + + + + | | | | | completed | | | | | | | | | | | | | | | | | | | | | | | | | | | 0 | | | | | | | | | | | | | | | | | | dicyclomi | | | | | | | ne 20 mg | | | | | | | tablet | | | | | | | | | | | | | | | | | | | | | | | | | | | | | | | | | | | | | | | | | | | | | | | | | | | | | | | | | | | | | | | | | | | | | | | | | | | | + + + + + + + | | | | | completed | | | | | | | | | | | | | | | | | | | | 03/13/202 | | | | | TAKE | | 0 | | | | | 1 CAPSULE | | | | | | | BY MOUTH | | | | | | cephalexi | 4 TIMES | | | | | | n 500 mg | DAILY FOR | | | | | | capsule | 10 DAYS | | | | | | | | | | | | | | | | | | | | | | | | | | | | | | | | | | | | | | | | | | | | | | | | | | | | | | | | | | | | | | | | | | | | | | | | | | | + + + + + + + | | | | | completed | | | | | | | | | | | | | | | | | | | | 03/13/202 | | | | | | | 0 | | | | | | | | | | | | | | | | | | pantopraz | | | | | | | ole 40 mg | | | | | | | | | | | | | | tabletde | | | | | | | layed | | | | | | | release | | | | | | | | | | | | | | | | | | | | | | | | | | | | | | | | | | | | | | | | | | | | | | | | | | | | | | | | | | | | | | | | | | | | | | | | | | | | + + + + + + + | | | | | completed | | | | | | | | | | | | | | | | | | | | | | | | | TAKE | | 0 | | | | | 1 TABLET | | | | | | | BY MOUTH | | | | | | trazodone | EVERY DAY | | | | | | 150 mg | AT | | | | | | tablet | BEDTIME | | | | | | | NEEDED | | | | | | | | | | | | | | | | | | | | | | | | | | | | | | | | | | | | | | | | | | | | | | | | | | | | | | | | | | | | | | | | | | | | + + + + + + + | | | | | completed | | | | | | | | | | | | | | | | | | | | | | | | | TAKE | | 0 | | | | | 1 TABLET | | | | | | | BY MOUTH | | | | | | lisinopri | ONCE | | | | | | l 10 mg | DAILY | | | | | | tablet | | | | | | | | | | | | | | | | | | | | | | | | | | | | | | | | | | | | | | | | | | | | | | | | | | | | | | | | | | | | | | | | | | | | | | | | | | | | + + + + + + + | | | | | completed | | | | | | | | | | | | | | | | | | | | 03/13/202 | | | | | TAKE | | 0 | | | | | 1 TABLET | | | | | | | BY MOUTH | | | | | | metoprolo | TWICE | | | | | | l | DAILY | | | | | | tartrate | | | | | | | 50 mg | | | | | | | tablet | | | | | | | | | | | | | | | | | | | | | | | | | | | | | | | | | | | | | | | | | | | | | | | | | | | | | | | | | | | | | | | | | | | | | | | | | | | | + + + + + + + | | | | | active | | | | | | | | | | | | | | | | | | | | | | | | | TAKE | | | | | | | 5 ML BY | | | | | | | MOUTH | | | | | | hydrocodo | EVERY 6 | | | | | | ne-homatr | HOURS | | | | | | opine 5 | NEEDED | | | | | | mg-1.5 | FOR COUGH | | | | | | mg/5 mL | FOR 7 | | | | | | oral | DAYS | | | | | | syrup | | | | | | | | | | | | | | | | | | | | | | | | | | | | | | | | | | | | | | | | | | | | | | | | | | | | | | | | | | | | | | | | | | | | | | | | | | | | + + + + + + + | | | | | active | | | | | | | | | | | | | | | | | | | | | | | | | | | | | | | | | | | | | | | | | | | | | trazodone | | | | | | | 300 mg | | | | | | | tablet | | | | | | | | | | | | | | | | | | | | | | | | | | | | | | | | | | | | | | | | | | | | | | | | | | | | | | | | | | | | | | | | | | | | | | | | | | | | + + + + + + + | | | | | completed | | | | | | | | | | | | | | | | | | | | 03/13/202 | | | | | | | 0 | | | | | | | | | | | | | | | | | | Prevalite | | | | | | | 4 gram | | | | | | | powder | | | | | | | for susp | | | | | | | in a | | | | | | | packet | | | | | | | | | | | | | | | | | | | | | | | | | | | | | | | | | | | | | | | | | | | | | | | | | | | | | | | | | | | | | | | | | | | | | | | | | | | | + + + + + + + | | | | | active | | | | | | | | | | | | | | | | | | | | | | | | | TAKE | | | | | | | 1 CAPSULE | | | | | | | BY MOUTH | | | | | | Cartia XT | ONCE | | | | | | 240 mg | DAILY | | | | | | capsule,e | | | | | | | xtended | | | | | | | release | | | | | | | | | | | | | | | | | | | | | | | | | | | | | | | | | | | | | | | | | | | | | | | | | | | | | | | | | | | | | | | | | | | | | | | | | | | | + + + + + + + | | | | | completed | | | | | | | | | | | | | | | | | | | | 03/13/202 | | | | | TAKE | | 0 | | | | | 1 TABLET | | | | | | | BY MOUTH | | | | | | furosemid | ONCE | | | | | | e 20 mg | DAILY FOR | | | | | | tablet | 12 DAYS | | | | | | | | | | | | | | | | | | | | | | | | | | | | | | | | | | | | | | | | | | | | | | | | | | | | | | | | | | | | | | | | | | | | | | | | | | | + + + + + + + | | | | | completed | | | | | | | | | | | | | | | | | | | | 03/13/202 | | | | | | | 0 | | | | | | | | | | | | | | | | | | levofloxa | | | | | | | lynne 500 | | | | | | | mg tablet | | | | | | | | | | | | | | | | | | | | | | | | | | | | | | | | | | | | | | | | | | | | | | | | | | | | | | | | | | | | | | | | | | | | | | | | | | | | | | | | | | | + + + + + + + | | | | | active | | | | | | | | | | | | | | | | | | | | | | | | | | | | | | | | | | | | | | | | | | | | | ondansetr | | | | | | | on 4 mg | | | | | | | disintegr | | | | | | | ating | | | | | | | tablet | | | | | | | | | | | | | | | | | | | | | | | | | | | | | | | | | | | | | | | | | | | | | | | | | | | | | | | | | | | | | | | | | | | | | | | | | | | | + + + + + + + | | | | | completed | | | | | | | | | | | | | | | | | | | | | | | | | | | 0 | | | | | | | | | | | | | | | | | | amoxicill | | | | | | | in 875 | | | | | | | mg-potass | | | | | | | ium | | | | | | | clavulana | | | | | | | te 125 mg | | | | | | | tablet | | | | | | | | | | | | | | | | | | | | | | | | | | | | | | | | | | | | | | | | | | | | | | | | | | | | | | | | | | | | | | | | | | | | | | | | | | | | + + + + + + + | | | | | completed | | | | | | | | | | | | | | | | | | | | | | | | | | | 0 | | | | | | | | | | | | | | | | | | Phenadoz | | | | | | | 25 mg | | | | | | | rectal | | | | | | | supposito | | | | | | | ry | | | | | | | | | | | | | | | | | | | | | | | | | | | | | | | | | | | | | | | | | | | | | | | | | | | | | | | | | | | | | | | | | | | | | | | | | | | | + + + + + + + | | | | | active | | | | | | | | | | | | | | | | | | | | | | | | | | | | | | | | | | | | | | | | | | | | | duloxetin | | | | | | | e 60 mg | | | | | | | capsule,d | | | | | | | elayed | | | | | | | release | | | | | | | | | | | | | | | | | | | | | | | | | | | | | | | | | | | | | | | | | | | | | | | | | | | | | | | | | | | | | | | | | | | | | | | | | | | | + + + + + + + | | | | | active | | | | | | | | | | | | | | | | | | | | | | | | | | | | | | | | | | | | | | | | | | | | | olmesarta | | | | | | | n 40 | | | | | | | mg-amlodi | | | | | | | pine 5 | | | | | | | mg-hydroc | | | | | | | hlorothia | | | | | | | zide 25 | | | | | | | mg tablet | | | | | | | | | | | | | | | | | | | | | | | | | | | | | | | | | | | | | | | | | | | | | | | | | | | | | | | | | | | | | | | | | | | | | | | | | | | | | | | | | | | + + + + + + + | | | | | completed | | | | | | | | | | | | | | | | | | | | | | | | | | | 0 | | | | | | | | | | | | | | | | | | Suprep | | | | | | | Bowel | | | | | | | Prep Kit | | | | | | | 17.5 | | | | | | | gram-3.13 | | | | | | | gram-1.6 | | | | | | | gram | | | | | | | oral | | | | | | | solution | | | | | | | | | | | | | | | | | | | | | | | | | | | | | | | | | | | | | | | | | | | | | | | | | | | | | | | | | | | | | | | | | | | | | | | | | | | | | | | | | | | + + + + + + + | | | | | completed | | | | | | | | | | | | | | | | | | | | | | | | | | | 0 | | | | | ADMINISTE | | | | | | | R ONE (1) | | | | | | Narcan 4 | SPRAY OF | | | | | | mg/actuat | NARCAN | | | | | | ion nasal | IN ONE | | | | | | spray | NOSTRIL. | | | | | | | REPEAT | | | | | | | AFTER | | | | | | | THREE (3) | | | | | | | MINUTES | | | | | | | IF NO | | | | | | | RESPONSE. | | | | | | | | | | | | | | | | | | | | | | | | | | | | | | | | | | | | | | | | | | | | | | | | | | | | | | | | | | | | | + + + + + + + History of Present Illness None recorded. Physical Exam + + + | | | | | | | | | | | | + + + | | None recorded. | | Notes: | | | | | | | | + + + Review of Systems None recorded. Vitals None Recorded Social History + + + | | Never Smoker (Never) | | Smoking Status | | | | | | | | + + + | Sex | Unknown | | | | + + + Functional Status None recorded. Mental Status None recorded. Family History + + + + + + + | Relations | Descripti | Onset Age | of | Resolved | Notes | | hip | on | | this Age | Age | | | | | | | | | | | | | | | | | | | | | | | | | | | | | | + + + + + + + | Mother | Heart | | | | | | | disease | | | | | | | | | | | | | | | | | | | | | | | | | | | | | | | | | + + + + + + + | Mother | Hypertens | | | | | | | mike | | | | | | | disorder | | | | | | | | | | | | | | | | | | | | | | | | | | | | | | | | | + + + + + + + | Mother | Cerebrova | | | | | | | scular | | | | | | | accident | | | | | | | | | | | | | | | | | | | | | | | | | | | | | | | | | + + + + + + + | Father | Heart | | | | | | | disease | | | | | | | | | | | | | | | | | | | | | | | | | | | | | | | | | + + + + + + + | Father | Hypertens | | | | | | | mike | | | | | | | disorder | | | | | | | | | | | | | | | | | | | | | | | | | | | | | | | | | + + + + + + + | Father | Cerebrova | | | | | | | scular | | | | | | | accident | | | | | | | | | | | | | | | | | | | | | | | | | | | | | | | | | + + + + + + + Medical History + + + | Condition | Response | | | | + + + | Seizures/Epilepsy | N | | | | + + + | Bleeding Disorder | N | | | | + + + | Relative with stroke/cva | N | | | | + + + | Swelling in legs/feet | N | | | | + + + | HIV or AIDS | N | | | | + + + | Angina | N | | | | + + + | Breast Cancer | N | | | | + + + | Kidney Stones | N | | | | + + + | Urinary Tract Infection | N | | | | + + + | Gastric Reflux | N | | | | + + + | Recent Change in Bowel Habits | N | | | | + + + | Bloating | N | | | | + + + | Deep Vein Thrombosis | N | | | | + + + | Back Pain | N | | | | + + + | Asthma | N | | | | + + + | Alcoholism | N | | | | + + + | Circulation Problems | N | | | | + + + | Breast Pain | N | | | | + + + | Stroke | Y | | | | + + + | Diabetes | N | | | | + + + | Constipation | N | | | | + + + | Insomnia | N | | | | + + + | Swelling of Ankles, Feet or Hands | N | | | | | | | + + + | Peptic Ulcer (stomach or duodenal) | N | | | | | | | + + + | Blurred Vision | N | | | | + + + | Colon Polyps | N | | | | + + + | Cancer | N | | | | + + + | Regurgitation | N | | | | + + + | Headache | N | | | | + + + | Thyroid Problems | N | | | | + + + | Heart Murmur | N | | | | + + + | Good Pastures | N | | | | + + + | Difficulty Walking | N | | | | + + + | Shortness of Breath | N | | | | + + + | Hepatitis | N | | | | + + + | Heart Disease | Y | | | | + + + | Yellow Jaundice | N | | | | + + + | Ulcerative Colitis | N | | | | + + + | Rectal Bleeding | N | | | | + + + | Muscle Pain | N | | | | + + + | GERD | N | | | | + + + | Complication To Anesthesia | N | | | | + + + | Breast Lump | N | | | | + + + | Lung Disease | N | | | | + + + | Glaucoma | N | | | | + + + | Gastrointestinal Disease | N | | | | + + + | Pancreatitis | N | | | | + + + | Blood in Urine | N | | | | + + + | Recent Weight Change | N | | | | + + + | Depression | N | | | | + + + | Cold feet and legs | N | | | | + + + | Wheezing | N | | | | + + + | Sores on legs | N | | | | + + + | Warfarin Management | N | | | | + + + | Difficulty Swallowing | N | | | | + + + | Fatigue | N | | | | + + + | Rheumatic Fever | N | | | | + + + | High Blood Pressure | Y | | | | + + + | Black, Tarry Stools | N | | | | + + + | Frequent Urination | N | | | | + + + | Discolored feet and legs | N | | | | + + + | Aortic Aneurysm | N | | | | + + + | Numbness | N | | | | + + + | Gallbladder disease | N | | | | + + + | Kidney Failure | N | | | | + + + | STOMACH OR GI ULCERS | Y | | | | + + + | Emphysema | N | | | | + + + | Fever | N | | | | + + + | Spitting up Blood | N | | | | + + + | Anemia | N | | | | + + + | Mouth Sores | N | | | | + + + | Diarrhea | N | | | | + + + | Kidney Disease | N | | | | + + + | Palpitation | N | | | | + + + | Hearing Loss | N | | | | + + + | Blood Clots | Y | | | | + + + | Diverticulitis | N | | | | + + + | Abdominal Pain | N | | | | + + + | High Cholesterol | Y | | | | + + + | Leg or Foot Ulcers | N | | | | + + + | Memory Loss or Confusion | N | | | | + + + | Chronic or frequent cough | N | | | | + + + | Burning with Urination | N | | | | + + + | Bleeding or Bruising tendency | N | | | | + + + | Enlarged Glands | N | | | | + + + | Excessive Thirst or Urination | N | | | | + + + | Ringing in Ears | N | | | | + + + | Nausea or Vomiting | N | | | | + + + | Osteoporosis | N | | | | + + + | Poor Appetite | N | | | | + + + | Hiatal Hernia | N | | | | + + + | Loss of Appetite | N | | | | + + + | Mitral Valve Prolapse | N | | | | + + + | Varicose Veins | N | | | | + + + | Reflux | N | | | | + + + | Arthritis | Y | | | | + + + | Liver Disease | N | | | | + + + | Peripheral Arterial Disease | N | | | | + + + | Itching | N | | | | + + + | Gallstones | N | | | | + + + | Gout | N | | | | + + + | Elevated Cholesterol | N | | | | + + + | Peripheral Vascular Disease (PVD) | N | | | | | | | + + + | Joint Pain or Swelling | N | | | | + + + | Abnormal Mammogram | N | | | | + + + | Phlebitis | N | | | | + + + | Sexually Transmitted Disease | N | | | | + + + | Blood Transfusions | N | | | | + + + | Angioplasty (balloon) | N | | | | + + + | Heartburn | N | | | | + + + | Crohns Disease | N | | | | + + + | Heat or cold intolerance | N | | | | + + + | Belching | N | | | | + + + Gynecological History No gynecological history recorded. Obstetrics History GPAL : G 0 P 0 0 0 0 Immunizations None recorded. Past Encounters + + + + | Encounter Date | Diagnosis Name | Diagnosis SNOMED-CT | | | | Code | | | | | + + + + | | Gastroesophageal | [id number] | | | reflux disease with | | | 07/03/2019 | hiatal hernia | | | | | | | | | | | | | | | | | | | Fahad | | | | [facility] [place] [facility] | | | | [place], | | | | [facility] | | | | [facility] | | | | [place]: [address] | | | [address] | | | | [place], [place] | | | | [phone], Ph. [phone] | | | | [phone] | | | | | | | | | | | | | | | | | | | + + + + | | Chronic abdominal | [id number] | | | pain | | | | | | + + + + | | Pandya's esophagus | [id number] | | | | | | | | | + + + + | | Coronary | [id number] | | | arteriosclerosis | | | | | | | | | | + + + + | | Congestive heart | [id number] | | | failure | | | | | | | | | | + + + + | | Hypertensive disorder | [id number] | | | | | | | | | + + + + Goals Section + + + + + + + | Goal | Descripti | Status | Start | Updated | Updated | | | on | | Date | by | on | | | | | | | | | | | | | | | | | | | | | | | | | | | | | + + + + + + + + + | None Recorded | + + Health Concerns Section + + | Related Observation | + + | None Recorded | + + + + + + + | Concern | Status | Updated by | Updated on | | | | | | | | | | | | | | | | + + + + + | None Recorded | | | | | | | | | | | | | | | | | | | + + + + +"
--- NOTE | 2019-07-12 15:40 | OP ---
PATIENT NAME: SUNIL ALEGRIA MEDICAL RECORD: [id number] :58 LOCATION:D.MS [id number] ADMISSION DATE:07/11/19 SURGEON: FAHAD CHIRINOS MD DATE OF OPERATION: 07/11/2019 PREOPERATIVE DIAGNOSES: 1. Chronic abdominal pain status post mesh ventral hernia repair. 2. Recurrence of gastroesophageal reflux disease, status post Cherelle in 2010 and 2008. 3. Pandya esophagus. POSTOPERATIVE DIAGNOSES: 1. Chronic abdominal pain status post mesh ventral hernia repair. 2. Recurrence of gastroesophageal reflux disease, status post Cherelle in 2010 and 2008. 3. Pandya esophagus. PROCEDURE: 1. Laparoscopic extraction of a ventral hernia mesh. 2. Laparoscopic redo Cherelle fundoplication. 3. Laparoscopic lysis of adhesions. 4. Open ventral hernia repair. SURGEON: Fahad Chirinos MD REPORT OF PROCEDURE: The patient's abdomen was prepped and draped in sterile fashion. A Veress needle was inserted in the left upper quadrant and the abdomen was insufflated. A 5-mm Visiport trocar was inserted in the left lateral abdomen. I can see the Veress needle and there was no sign of any injury to bowel or surrounding structures. There were a lot of adhesions present in the midline and the left upper quadrant from previous open Cherelle and a ventral hernia repair. We placed a 11-mm trocar in the left subcostal region and a 5-mm trocar in the epigastrium. At this point, we were able to take down the adhesions from the anterior abdominal wall, which were adhesions of the patient's omentum. There was no bowel adherent to the anterior abdominal wall. Once we had all of this down out of the way then were able to see the mesh present extending from just above the umbilicus up to near the epigastrium. We are going to take this down using sharp dissection and was eventually able to remove this entire piece of mesh intact. Once this mesh was taken down off the anterior abdominal wall, I had to cut into 4 pieces in order to facilitate removal through the 11-mm trocar. We then inspected the area, placed a 11-mm trocar in the midline just above the umbilicus and a 5-mm trocar on the right lateral abdomen. We began our dissection of the tissues from the left upper quadrant. A liver retractor was inserted and held up the left lobe of the liver. We then took down a lot of adhesions that were quite dense from this portion of the abdomen including a lot of omental fatty tissue and also the medial stomach was adherent to the patient's left lobe of the liver. Using Harmonic scalpel and sharp dissection, we were eventually able get all these adhesions down. We could see that the patient did not have any evidence of a hiatal hernia. The esophageal hiatus was dilated. The patient had a fundoplication wrap present. This was only about a 180-degree wrap at this point. We went ahead and took down this wrap completely using sharp dissection and was eventually able to unravel this fundoplication lay the stomach out its anatomic position and an NG tube was inserted and noted to be resting in good position in the atrium of the stomach. With this in place, we were able to OPERATIVE REPORT [id number] SUNIL ALEGRIA perform another 360-degree wrap of the fundus of the stomach around the distal esophagus using interrupted 0 Polydeks times 3. The top suture did incorporate a bite of the patient's esophagus. With this in place, we were able to place a couple of sutures in the diaphragmatic hiatus to reapproximate the tissue edges. Everything at this point appeared to rest in good position. We irrigated out the abdomen thoroughly with normal saline and assured there was no sign of any active bleeding. There had been some bleeding from the inferior aspect of the left lobe of the liver from the dissection of the scar tissue and this was treated with electrocautery. I did not see any evidence of any bile leakage and the stomach and tissues all appeared to be viable. We took out the liver retractor and the 11-mm trocar site fascia in the left upper quadrant was closed with 0 Vicryl using a Tanner-Cindy suture passer device. I attempted to close the defect in the patient's midline, but every time I passed the wire, the Vicryl suture through was not grasping any of the fascia. At this point, I noticed that the patient actually did have a hernia defect present right around our trocar site. I went ahead and elected just open up this area in the midline through an old upper midline incision. As we penetrated into the abdominal cavity, the patient was noted to have about a 3 cm hernia defect and just inferior to this, there was another small hernia defect that was about 1.5 cm in size. There was about a 2 cm fascial bridge between these. Went ahead and open these up and entered the abdominal cavity and felt around and other then the patient having a very small umbilical hernia I did not feel any other evidence of hernia defects. I undermined the tissue overlying this fascia and closed this defect with a running #1 loop PDS times 2. There was good approximation of the tissue and did not actually appear to be under much tension. The wound bed was then irrigated out with normal saline. The subcutaneous tissues were reapproximated with interrupted 3-0 Vicryl and the skin incisions were all closed with running subcutaneous 5-0 Monocryl. The wounds were then dressed appropriately. COMPLICATIONS: None. CONDITION: Stable. ANESTHESIA: General endotracheal. BLOOD LOSS: 100 mL. TRANSINT:[id number] Voice Confirmation ID: [id number] DOCUMENT ID: [id number] FAHAD CHIRINOS MD at 1540 CC: [id number] DICTATION DATE: 07/11/19 1615 SWEET PICKLED FRUIT MAKER: 07/12/19 0055 ADM IN [facility] [address] [id number]
[2019-07-12 16:00] VITALS: BP 148/94
[2019-07-12 21:08] VITALS: BP 139/75
[2019-07-13 01:06] VITALS: BP 122/77
--- NOTE | 2019-07-13 03:16 | NUR ---
CALLED TO PT ROOM PT. STATED THAT HIS NGT GOT COUGHT ON HIS O2 WHEN HE PULLED OFF HIS O2 PULLING OUT THE NGT. CALL TO DR DAHL BONDING SUPERVISOR INFORMED HIM OF NGT OUT AND ORDER TO D/C IN AM BEFOR ESOPHAGRAM. ORDER TO LEAVE IT OUT DO NOT REPLACE NGT. PT. INFORMED OF NEW ORDER. RESTING WITH NO TROMA NOTED
[2019-07-13 05:39] LABS: BASOPHILS 0.1 % (0-2); EOSINOPHILS 1.5 % (0-7); HEMATOCRIT 34.1 % (42.0-54.0); HEMOGLOBIN 10.4 g/dL (13.5-17.5); IMMATURE GRANULOCYTES 0.3 % (0-5); LYMPHOCYTES 16.5 % (15-50); MCH 30.9 pg (26.0-34.0); MCHC 30.5 g/dL (31.0-37.0); MCV 101.2 fL (80.0-100.0); MEAN PLATELET VOLUME 8.7 fL (7.4-10.4); MONOCYTES 10.2 % (2-11); NEUTROPHILS 71.4 % (40-80); PLATELET COUNT 133 10x3/uL (130-400); RBC 3.37 10x6/uL (4.20-6.10); RDW 12.7 % (11.5-14.5)
[2019-07-13 05:51] LABS: WBC 6.9 10x3/uL (4.8-10.8)
[2019-07-13 06:20] LABS: CALC OSMOLALITY 280 mosm/kg (275-300); CALCIUM 7.7 mg/dL (8.5-10.1); CARBON DIOXIDE 28.2 mmol/L (21.0-32.0); CHLORIDE - SERUM 105 mmol/L (98-107); GLUCOSE 90 mg/dL (74-106); SODIUM 139 mmol/L (136-145); UREA NITROGEN 22 mg/dL (7-18)
[2019-07-13 06:23] LABS: CREATININE - SERUM 0.7 mg/dL (0.6-1.3); POTASSIUM - SERUM 3.8 mmol/L (3.5-5.1); eGFR NON AFRICAN AMERICAN > 90 mL/min (90-120)
[2019-07-13 06:58] VITALS: BP 126/70
[2019-07-13 08:00] VITALS: BP 138/82
[2019-07-13 12:00] VITALS: BP 121/79
[2019-07-13 16:18] VITALS: BP 133/77
--- NOTE | 2019-07-13 16:45 | MORECARE ---
CASE MANAGEMENT DISCHARGE SUMMARY PATIENT: SUNIL ALEGRIA UNIT: [id number] ADM DATE: 07/11/19 AGE: 59 : 58 SEX: M ROOM/BED: D.2233 AUTHOR: SNIGH DOS SANTOS PHYSICIAN: REFERRING PHYSICIAN: JESUS CHIRINOS MD DATE OF SERVICE: 07/13/19 Discharge Plan Patient Name: SUNIL ALEGRIA [facility] [facility] 1960 Planned Disposition: Anticipated Discharge Date: Discharge Date: Expected LOS: Initial Reviewer: [email or web address] Initial Review Date: 07/13/2019 Generated: 07/13/19 5:44 pm Patient Name: SUNIL ALEGRIA Page 67165 at 1645 All edits/amendments must be made on the electronic document DICTATION DATE: 07/13/191643 CIRCLE SAW OPERATOR: ASHLEY 07/13/191643 RPT#: [id number] DC DATE: STATUS: ADM IN [facility] [address] [place] [address] END OF REPORT
--- NOTE | 2019-07-13 16:52 | MORECARE ---
CASE MANAGEMENT DISCHARGE SUMMARY PATIENT: SUNIL ALEGRIA UNIT: [id number] ADM DATE: 07/11/19 AGE: 59 : 58 SEX: M ROOM/BED: D.2233 AUTHOR: SINGH DOS SANTOS PHYSICIAN: REFERRING PHYSICIAN: JESUS CHIRINOS MD DATE OF SERVICE: 07/13/19 Discharge Plan Patient Name: SUNIL ALEGRIA Facility: [facility]:[place] : 1960 Planned Disposition: Anticipated Discharge Date: Discharge Date: Expected LOS: Initial Reviewer: [email or web address] Initial Review Date: 07/13/2019 Generated: 07/13/19 5:51 pm Comments DCP- Discharge Planning Updated by [email or web address]: Florecita Mcmahon on 07/13/19 3:[address] Patient Name: SUNIL ALEGRIA Admission Status: Elective Accout number: [id number] Admission Date: 07-11-2019 : 1960 Admission Diagnosis:UNSPECIFIED ABDOMINAL PAIN Attending: JESUS CHIRINOS Current LOS: 2 Anticipated DC Date: Planned Disposition: Primary Insurance: AETNA MEDICARE PPO or HMO Discharge Planning Comments: CM met with patient at bedside after explaining CM role and obtaining verbal consent. CM discussed availability / needs of home health, REHAB and medical equipment. PATIENT DENIES ANY DISCHARGE NEEDS. PATIENT STATES POSSIBLE DC TOMORROW. Manager Of Warehouse: Florecita Mcmahon DCPIA - Discharge Planning Initial Assessment Updated by [email or web address]: Florecita Mcmahon on 07/13/19 4:45 pm * Is the patient Alert and Oriented? Yes * PCP DOCTOR IN [place] * Preadmission Environment Home Alone * ADLs Independent * Additional services required to return to the preadmission environment? No * Can the patient safely return to the preadmission environment? Yes * Has this patient been hospitalized within the prior 30 days at any hospital? No Last DP export: 07/13/19 3:45 p Patient Name: SUNIL ALEGRIA Page [id number] at 3279 All edits/amendments must be made on the electronic document DICTATION DATE: 07/13/191650 TIGHTENER: ASHLEY 07/13/191650 RPT#: [id number] DC DATE: STATUS: ADM IN [facility] [address] [place] [address] END OF REPORT
--- NOTE | 2019-07-13 17:45 | NUR ---
PATIENT STATED HE HAS A URINE SAMPLE AT THIS TIME. EXPLAINED THERE IS NO ORDER FOR IT. STATED A BLACK HEADED NURSE CAME IN AND SAID THAT HE NEEDED ONE BC THERE IS BLOOD IN URINE. URINE IS VERY LIGHT PINK AND YELLOW. EXPLAINED THAT HE MAY HAVE A SMALL AMOUNT FROM IRRITATION FROM JOSHI DURING SURGERY, BUT THAT IT WAS NORMAL FOR THAT TO HAPPEN. VERBALIZED UNDERSTANDING. IV INTACT AT THIS TIME. CALL LIGHT WITHIN REACH.
--- NOTE | 2019-07-13 18:55 | NUR ---
PATIENT IN BED WITH EYES CLOSED RESTING QUIETLY. CALL LIGHT WITHIN REACH.
[2019-07-13 20:00] VITALS: BP 115/79
[2019-07-14] VITALS: BP 131/77
--- NOTE | 2019-07-14 03:19 | NUR ---
ALERT AND ORENTED X4 ABLE TO VOICE NEEDS AND WANTS TO STAFF. MID LINE WITH DRESSING INTACT, LAP SITES WITH NO REDNESS NOTED.IV TO LEFT FA INTACT. WATER AND CALL LIGHT IN REACH.
[2019-07-14 04:00] VITALS: BP 128/80
--- NOTE | 2019-07-14 07:46 | NUR ---
RECEIVED REPORT FROM DOOR GLASS INSTALLER. PT RESTING WITH EYES CLOSED UPON ENTERING, NO S/S OF DISTRESS NOTED AT THIS TIME. HARD OF HEARING, ALERT AND ORIENTED X4, POST OP +3 DAYS HERNIA REPAIR, 3 LAP SITES. RIGHT HAND IV. BED IN LOWEST POSITION, BED RAILS X2, CALL LIGHT WITHIN REACH. WILL CONTINUE TO MONITOR.
[2019-07-14 08:00] VITALS: BP 138/83
--- NOTE | 2019-07-14 09:26 | NUR ---
ADMINISTERED MORNING MEDICATION AT THIS TIME, NO DIFFICULTY. PT COMPLAINING OF PAIN, TORADOL GIVEN, WILL REASSESS PAIN IN 30 MINUTES. PERFORMED ASSESSMENT AT THIS TIME. DENIES ANY OTHER NEEDS. WILL CONTINUE TO MONITOR.
[2019-07-14] MEDS ORDERED: HYDROCODON-ACE1 EA10 PO (09:33)
--- NOTE | 2019-07-14 10:00 | MORECARE ---
CASE MANAGEMENT DISCHARGE SUMMARY PATIENT: SUNIL ALEGRIA UNIT: [id number] ADM DATE: 07/11/19 AGE: 59 : 58 SEX: M ROOM/BED: D.2233 AUTHOR: RAYADOC PHYSICIAN: REFERRING PHYSICIAN: JESUS CHIRINOS MD DATE OF SERVICE: 07/14/19 Discharge Plan Patient Name: SUNIL ALEGRIA Facility: [facility]:[place] : 1960 Planned Disposition: Anticipated Discharge Date: Discharge Date: Expected LOS: Initial Reviewer: [email or web address] Initial Review Date: 07/13/2019 Generated: 07/14/19 11:00 am Comments DCP- Discharge Planning Updated by [email or web address]: Florecita Mcmahon on 07/14/19 8:[address] Patient Name: SUNIL ALEGRIA Encounter No: [id number] : 1960 Primary Insurance: AETNA MEDICARE PPO or HMO Anticipated DC Date: Planned Disposition: External Planned Provider: : DCP follow-up note: Patient and family in agreement with discharge plan. No changes to plan. Case management will follow and assist as needed. IMM SIGNED. Florecita Mcmahon DCP- Discharge Planning Updated by [email or web address]: Florecita Mcmahon on 07/13/19 3:[address] Patient Name: SUNIL ALEGRIA Admission Status: Elective Accout number: [id number] Admission Date: 07-11-2019 : 1960 Admission Diagnosis:UNSPECIFIED ABDOMINAL PAIN Attending: JESUS CHIRINOS Current LOS: 2 Anticipated DC Date: Planned Disposition: Primary Insurance: AETNA MEDICARE PPO or HMO Discharge Planning Comments: CM met with patient at bedside after explaining CM role and obtaining verbal consent. CM discussed availability / needs of home health, REHAB and medical equipment. PATIENT DENIES ANY DISCHARGE NEEDS. PATIENT STATES POSSIBLE DC TOMORROW. Ophthalmic Technologist: Florecita Mcmahon DCPIA - Discharge Planning Initial Assessment Updated by [email or web address]: Florecita Mcmahon on 07/13/19 4:45 pm * Is the patient Alert and Oriented? Yes * PCP DOCTOR IN [place] * Preadmission Environment Home Alone * ADLs Independent * Additional services required to return to the preadmission environment? No * Can the patient safely return to the preadmission environment? Yes * Has this patient been hospitalized within the prior 30 days at any hospital? No Coverage Notice Reviewer: [email or web address] Carlos Alberto Mcmahon Notice Issued Date-Time: 07/14/2019 9:57 Notice Type: IM Discharge Notice Notice Delivered To: Patient Relationship to Patient: Plastic Production Machine Setter Name: Delivery Method: HAND - Hand Delivered Areli Days: Prior Verbal Notification: Recipient Understood Notice: Yes Recipient Signature: Yes Med Rec Note Co-signed by Attending: Coverage Notice Comment: Last DP export: 07/13/19 3:52 p Patient Name: SUNIL ALEGRIA Page [phone] at 1000 All edits/amendments must be made on the electronic document DICTATION DATE: 07/14/19 1000 DENTAL OFFICE ASSISTANT: ASHLEY 07/14/19 1000 RPT#: [id number] DC DATE: STATUS: ADM IN [facility] [address] [place] [address] END OF REPORT
--- NOTE | 2019-07-14 10:22 | NUR ---
ADMINISTERED PRN MORPHINE FOR PAIN OF 10/10 IN ABDOMINAL INCISION. RESTING COMFORTABLY IN BED. HAS BEEN UP AND AMBULATING. DENIES ANY NEEDS AT THIS TIME. WILL CONTINUE TO MONITOR.
[2019-07-14 12:00] VITALS: BP 141/82
--- NOTE | 2019-07-14 14:10 | NUR ---
ADMINISTERED PRN MORPHINE FOR PAIN OF 10/10. REMOVED IV FROM RIGHT HAND, CATHETER TIP INTACT, TOLERATED WELL, 2X2 AND TAPE COVERING INCISION. PT SIGNED ALL PAPERWORK. WILL HAVE CIRCUIT DESIGNER ESCORT PT DOWNSTAIRS VIA WHEELCHAIR.
--- NOTE | 2019-07-17 08:18 | MORECARE ---
CASE MANAGEMENT DISCHARGE SUMMARY PATIENT: SUNIL ALEGRIA UNIT: [id number] ADM DATE: 07/11/19 AGE: 59 : 58 SEX: M ROOM/BED: D.2233 AUTHOR: RAYADOC PHYSICIAN: REFERRING PHYSICIAN: JESUS CHIRINOS MD DATE OF SERVICE: 07/17/19 Discharge Plan Patient Name: SUNIL ALEGRIA Facility: [facility]:[place] : 1960 Planned Disposition: Anticipated Discharge Date: Discharge Date: 07/14/2019 Expected LOS: Initial Reviewer: [email or web address] Initial Review Date: 07/13/2019 Generated: 07/17/19 9:17 am Comments DCP- Discharge Planning Updated by [email or web address]: Florecita Mcmahon on 07/14/19 8:[address] Patient Name: SUNIL ALEGRIA Encounter No: [id number] : 1960 Primary Insurance: AETNA MEDICARE PPO or HMO Anticipated DC Date: Planned Disposition: External Planned Provider: : DCP follow-up note: Patient and family in agreement with discharge plan. No changes to plan. Case management will follow and assist as needed. IMM SIGNED. Florecita Mcmahon DCP- Discharge Planning Updated by [email or web address]: Florecita Mcmahon on 07/13/19 3:[address] Patient Name: SUNIL ALEGRIA Admission Status: Elective Accout number: [id number] Admission Date: 07-11-2019 : 1960 Admission Diagnosis:UNSPECIFIED ABDOMINAL PAIN Attending: JESUS CHIRINOS Current LOS: 2 Anticipated DC Date: Planned Disposition: Primary Insurance: AETNA MEDICARE PPO or HMO Discharge Planning Comments: CM met with patient at bedside after explaining CM role and obtaining verbal consent. CM discussed availability / needs of home health, REHAB and medical equipment. PATIENT DENIES ANY DISCHARGE NEEDS. PATIENT STATES POSSIBLE DC TOMORROW. Oracle Hrms Developer: Florecita Mcmahon DCPIA - Discharge Planning Initial Assessment Updated by [email or web address]: Florecita Mcmahon on 07/13/19 4:45 pm * Is the patient Alert and Oriented? Yes * PCP DOCTOR IN [place] * Preadmission Environment Home Alone * ADLs Independent * Additional services required to return to the preadmission environment? No * Can the patient safely return to the preadmission environment? Yes * Has this patient been hospitalized within the prior 30 days at any hospital? No Coverage Notice Reviewer: [email or web address] Carlos Alberto Mcmahon Notice Issued Date-Time: 07/14/2019 9:57 Notice Type: IM Discharge Notice Notice Delivered To: Patient Relationship to Patient: Permit Agent Name: Delivery Method: HAND - Hand Delivered Areli Days: Prior Verbal Notification: Recipient Understood Notice: Yes Recipient Signature: Yes Med Rec Note Co-signed by Attending: Coverage Notice Comment: Last DP export: 07/14/19 9:00 a Patient Name: SUNIL ALEGRIA Page 78703 at 0818 All edits/amendments must be made on the electronic document DICTATION DATE: 07/17/19816 AUXILIARY POWER EQUIPMENT OPERATOR: ASHLEY 07/17/19816 RPT#: [id number] DC DATE:07/14/19 STATUS: DIS IN [facility] [address] [place] [address] END OF REPORT
== END 2019-07-14 14:25 | disposition home or self-care (01) | DRG 328 ==
LOC: D.OPS 05:03 → D.PAN 07:30 → D.MS 13:43
PROVIDERS: ADMIT Surgery; ATTEND Surgery
PROC: 0WQF0ZZ Repair Abdominal Wall, Open Approach (ICD-10-PCS; 2019-07-11)
PROC: 0WPF4JZ Removal of Synthetic Substitute from Abdominal Wall, Percutaneous Endoscopic Approach (ICD-10-PCS; 2019-07-11)
PROC: 0DV44ZZ Restriction of Esophagogastric Junction, Percutaneous Endoscopic Approach (ICD-10-PCS; principal; 2019-07-11 07:30)
DX: K21.0 Gastro-esophageal reflux disease with esophagitis (principal); T85.848A Pain due to other internal prosthetic devices, implants and grafts, initial encounter; K44.9 Diaphragmatic hernia without obstruction or gangrene; K22.70 Barrett's esophagus without dysplasia; Y83.9 Surgical procedure, unspecified as the cause of abnormal reaction of the patient, or of later complication, without mention of misadventure at the time of the procedure

== ENCOUNTER 2019-07-17 16:01 | Emergency (ER) | payer MEDICARE ==
[~2019-07-17] VITALS: Ht 190.5 cm; Wt 136.4 kg
[2019-07-17 16:20] VITALS: Ht 190.5 cm; Wt 136.4 kg
[2019-07-17 17:44] LABS: BILIRUBIN NEGATIVE (NEGATIVE); GLUCOSE NEGATIVE (NEGATIVE); KETONE NEGATIVE (NEGATIVE); NITRITE NEGATIVE (NEGATIVE); RED CELLS - URINE 0-5 /hpf (0-5); SPECIFIC GRAVITY 1.015 (1.005-1.020); UROBILINOGEN NORMAL (NORMAL); WHITE CELLS - URINE OCC /hpf (NEGATIVE)
[2019-07-17] MEDS ORDERED: HYDROCODON-ACE1 EAC7 PO (18:52)
[2019-07-17 19:22] VITALS: BP 182/95
== END 2019-07-17 19:23 | disposition home or self-care (01) ==
LOC: D.ER 16:01
PROVIDERS: Family Medicine
DX: T81.89XA Other complications of procedures, not elsewhere classified, initial encounter (principal); R33.9 Retention of urine, unspecified; I10 Essential (primary) hypertension; I25.2 Old myocardial infarction; K21.9 Gastro-esophageal reflux disease without esophagitis

== ENCOUNTER 2019-07-22 00:19 | Inpatient (IN) | payer MEDICARE ==
[~2019-07-22] VITALS: Ht 190.5 cm; Wt 127.9 kg
[~2019-07-22 00:19] MED LIST changes: +HYDROCODON-ACE1 EAC7 PO
[2019-07-22 01:00] LABS: BASOPHILS 0.5 % (0-2); EOSINOPHILS 4.3 % (0-7); HEMATOCRIT 39.3 % (42.0-54.0); HEMOGLOBIN 12.8 g/dL (13.5-17.5); IMMATURE GRANULOCYTES 0.4 % (0-5); LYMPHOCYTES 15.4 % (15-50); MCHC 32.6 g/dL (31.0-37.0); MCV 98.3 fL (80.0-100.0); MEAN PLATELET VOLUME 8.6 fL (7.4-10.4); MONOCYTES 9.5 % (2-11); NEUTROPHILS 69.9 % (40-80); RDW 12.5 % (11.5-14.5)
[2019-07-22 01:01] LABS: PLATELET COUNT 234 10x3/uL (130-400)
[2019-07-22 01:08] LABS: ANION GAP 14.5 mmol/L (8-16); CALCIUM 8.3 mg/dL (8.5-10.1); CREATININE - SERUM 1.1 mg/dL (0.6-1.3); POTASSIUM - SERUM 3.5 mmol/L (3.5-5.1)
[2019-07-22 01:21] LABS: ALBUMIN 3.7 g/dL (3.4-5.0); BILIRUBIN - TOTAL 0.28 mg/dL (0.2-1.3); PROTEIN - SERUM 7.4 g/dL (6.4-8.2)
[2019-07-22 02:20] VITALS: BP 154/95
--- NOTE | 2019-07-22 02:33 | NUR ---
PT WIND TECHNICIAN LIGHT C/O PAIN. PT REFUSED, STATES "THEY TRIED TO GIVE ME TORADOL, I AM ALLERGIC. IT SENDS A RED RASH UP MY ARM. I DON'T WANT THAT. " WHEN ATTEMPTING TO GIVE PT HIS NORCO, HE STATES "THAT WILL BURN MY STOMACH." EDP NOTIFIED.
--- NOTE | 2019-07-22 04:33 | NUR ---
PT ARRIVED TO THE FLOOR. ALERT AND ORIENTED. NO SIGNS OF DISTRESS. BREATHING EVEN AND UNLABORED. IV SITE RT AC DRESSING CLEAN DRY AND INTACT. NO SIGNS OF INFECTION OR INFULTRATION. LUNG SOUNDS CLEAR. BOWEL SOUNDS ACTIVE. ABD DISTENDED AND FIRM. ABD MIDLINE INCISION CLEAN DRY AND INTACT. NO SIGNS OF INFECTION. PT HARD OR HEARING. GLASSES. WILL CONTINUE PLAN OF CARE. CALL LIGHT IN REACH. BED LOWERED AND LOCKED. BED RAILS UPX2.
--- NOTE | 2019-07-22 06:39 | NUR ---
I have reviewed this patient and I concur with the Shift Assessment completed by the Licensed Practical Nurse today this shift.
[2019-07-22 08:00] VITALS: BP 156/94
--- NOTE | 2019-07-22 08:00 | NUR ---
ALERT AND ORIENTED X4. HEALED INCISION NOTED TO ABDOMEN WITH ABDOMINAL DISNTNSION NOTED WITH BOWEL SOUNDS HYPOACTIVE. ZOFRAN GIVEN FOR NAUSEA WITH BOWEL SOUNDS HYPOACTIVE. CONTINUES NPO STATUS WITH MS RETAIL SHIFT LEADER AT PRESCRIBED SETTING. PATIENT UP ADLIB. AND DENIES ANY CHEST PAIN OR DISCOMFORT.ENCOURAGED TO USE CALL LIGHT FOR ASSSIT.
[2019-07-22 08:23] VITALS: BP 152/108; BMI 35.3
[2019-07-22 12:00] VITALS: BP 170/96
[2019-07-22 15:52] VITALS: BP 175/96
[2019-07-22 20:00] VITALS: BP 154/100
[2019-07-22 20:10] LABS: BASOPHILS 0.2 % (0-2); EOSINOPHILS 1.3 % (0-7); HEMATOCRIT 40.2 % (42.0-54.0); HEMOGLOBIN 12.8 g/dL (13.5-17.5); IMMATURE GRANULOCYTES 0.4 % (0-5); LYMPHOCYTES 7.5 % (15-50); MCH 31.3 pg (26.0-34.0); MCHC 31.8 g/dL (31.0-37.0); MCV 98.3 fL (80.0-100.0); MEAN PLATELET VOLUME 8.7 fL (7.4-10.4); MONOCYTES 7.6 % (2-11); PLATELET COUNT 271 10x3/uL (130-400); RBC 4.09 10x6/uL (4.20-6.10); RDW 12.7 % (11.5-14.5); WBC 13.6 10x3/uL (4.8-10.8)
[2019-07-22 20:20] LABS: MAGNESIUM - SERUM 2.2 mg/dL (1.8-2.4); PHOSPHOROUS 3.4 mg/dL (2.5-4.9)
[2019-07-23] VITALS (12 sets, daily range): BP systolic 142–187; BP diastolic 79–99
[2019-07-23 05:22] LABS: BASOPHILS 0.3 % (0-2); EOSINOPHILS 3.3 % (0-7); HEMATOCRIT 35.9 % (42.0-54.0); HEMOGLOBIN 11.4 g/dL (13.5-17.5); IMMATURE GRANULOCYTES 0.3 % (0-5); LYMPHOCYTES 17.9 % (15-50); MCH 31.2 pg (26.0-34.0); MCHC 31.8 g/dL (31.0-37.0); MCV 98.4 fL (80.0-100.0); MEAN PLATELET VOLUME 8.5 fL (7.4-10.4); MONOCYTES 9.3 % (2-11); NEUTROPHILS 68.9 % (40-80); PLATELET COUNT 222 10x3/uL (130-400); RBC 3.65 10x6/uL (4.20-6.10); RDW 12.8 % (11.5-14.5)
[2019-07-23 05:28] LABS: WBC 9.3 10x3/uL (4.8-10.8)
[2019-07-23 05:37] LABS: ALBUMIN 3.1 g/dL (3.4-5.0); ALKALINE PHOSPHATASE 86 U/L (30-120); BILIRUBIN - TOTAL 0.62 mg/dL (0.2-1.3); CALCIUM 7.7 mg/dL (8.5-10.1); CARBON DIOXIDE 26.1 mmol/L (21.0-32.0); CHLORIDE - SERUM 105 mmol/L (98-107); GLUCOSE 106 mg/dL (74-106); PROTEIN - SERUM 6.3 g/dL (6.4-8.2); SODIUM 138 mmol/L (136-145); eGFR NON AFRICAN AMERICAN 81 mL/min (90-120)
[2019-07-23 05:39] LABS: ALT (SGPT) 31 U/L (10-68); CALC OSMOLALITY 275 mosm/kg (275-300); UREA NITROGEN 12 mg/dL (7-18)
--- NOTE | 2019-07-23 09:00 | NUR ---
ALERT AND ORIENTED X4. PATIENT STATES SLOPT WELL WITH N/G TUBE LAST NIGHT AND DENIES ANY NAUSEA OR DISCOMFORT. IVF AND TOY TRAINS AND ACCESSORIES SALESPERSON AT PRESCRIBED SETTINGS WITH NO S/S OF INFECTION/INFILTATION TO RIGHT A/C. CONTINUES NPO STATUS PENDING SURGERY TODAY.ABDOMEN LESS DISTENDED WITH BOWEL SOUNDS HYPOACTIVE X4 ANTERIOR. NO PERIPHERAL EDEMA NOTED. ENCOURAGED TO USE CALL LIGHT FOR ASSSIT.
[2019-07-23 14:46] LABS: SPECIFIC GRAVITY 1.025 (1.005-1.020)
[2019-07-23 14:47] LABS: BILIRUBIN NEGATIVE (NEGATIVE); GLUCOSE NEGATIVE (NEGATIVE); KETONE NEGATIVE (NEGATIVE); NITRITE NEGATIVE (NEGATIVE); UROBILINOGEN NORMAL (NORMAL)
--- NOTE | 2019-07-23 17:58 | NUR ---
PATIENT STABLE UPON PRE-OP AND LEFT WITH OR STAFF.
--- NOTE | 2019-07-23 20:15 | NUR ---
PATIENT BACK FROM SURGERY. NO SIGNS OF ACUTE DISTRESS NOTICED. PATIENT IS SLIGHTLY DROWSEY BUT ORIENTED X4. PAITIENT STATES HIS PAIN IS A 10/10. 3 PUNCUTRE SIGHTS ON ABDOMEN, DRESSING C/D/I. NG TUBE TO RIGHT COLMENARES, LOW INT. SUCTION. PRAVENA WOUND VAC. PATIENT ON BED REST UNTIL FURTHER NOTICE. IV TO R AC, NS @125, NO REDNESS OR SWELLING. 2L NC. WILL CONTINUE TO MONITOR.
[2019-07-24] VITALS (9 sets, daily range): BP systolic 130–154; BP diastolic 70–89
[2019-07-24 06:12] LABS: BASOPHILS 0.2 % (0-2); EOSINOPHILS 1.1 % (0-7); HEMATOCRIT 38.8 % (42.0-54.0); HEMOGLOBIN 12.3 g/dL (13.5-17.5); IMMATURE GRANULOCYTES 0.2 % (0-5); MCH 31.7 pg (26.0-34.0); MCHC 31.7 g/dL (31.0-37.0); MEAN PLATELET VOLUME 8.6 fL (7.4-10.4); MONOCYTES 9.5 % (2-11); PLATELET COUNT 250 10x3/uL (130-400); RBC 3.88 10x6/uL (4.20-6.10); RDW 12.9 % (11.5-14.5)
[2019-07-24 06:16] LABS: WBC 13.8 10x3/uL (4.8-10.8)
[2019-07-24 06:25] LABS: CALC OSMOLALITY 274 mosm/kg (275-300); CALCIUM 7.7 mg/dL (8.5-10.1); CARBON DIOXIDE 25.7 mmol/L (21.0-32.0); CHLORIDE - SERUM 104 mmol/L (98-107); CREATININE - SERUM 0.9 mg/dL (0.6-1.3); GLUCOSE 104 mg/dL (74-106); POTASSIUM - SERUM 3.6 mmol/L (3.5-5.1); SODIUM 138 mmol/L (136-145); UREA NITROGEN 10 mg/dL (7-18); eGFR NON AFRICAN AMERICAN > 90 mL/min (90-120)
--- NOTE | 2019-07-24 09:18 | NUR ---
PT LYING IN BED ON CL, STATED HE WAS TOLD BY IF AND WHEN HE PASSES GAS HE MAY HAVE NGT DC. PT STATED HE [PASSED GAS THIS MORNING. DR DAHL JUST LEFT BUILDING, HAD HIM PAGED
--- NOTE | 2019-07-24 10:17 | NUR ---
WENT TO REMOVE NGT AND PER RONIT VELEZ PT IS STILL NOT MOVING AIR SO CLAMP NGT FOR NOW, WENT TO CLAMP NGT AND PT BECAME NAUSEOUS, RECONNECTED NGT, PT ASKED FOR ICE CHIPS, HAD CHANGED PT TO CLEAR LIQUID DIET ORDERD BUT WILL CHANGE BACK TO NPO. CONTINUE WITH PLAN OF CARE
--- NOTE | 2019-07-24 14:14 | NUR ---
PT ON CL STATING HE IS UNABLE TO URINATE AND IT HURTS, PT HAD NOT VOIDED SINCE EARLY THIS MORNING. BLADDER SCAN SHOWED 300, CALLED AND SPOKE TO AGUSTIN QUIROZ AND RECEIVED ORDER FOR CATHETER. PLACED CATHETER ON PT AND RECEIVED 400 OUT. SENT URINE CULTURE TO LAB
[2019-07-24 14:34] LABS: BILIRUBIN NEGATIVE (NEGATIVE); GLUCOSE NEGATIVE (NEGATIVE); KETONE MODERATE mg/dL (NEGATIVE); NITRITE NEGATIVE (NEGATIVE); SPECIFIC GRAVITY 1.025 (1.005-1.020); UROBILINOGEN NORMAL (NORMAL)
--- NOTE | 2019-07-24 16:16 | NUR ---
PT ON CL AND ASKED FOR BSC, PLACED BSC NEXT TO BATHROOM AND ASSISTED PT UP TO IT, CLAMPED NGT, PT WAS ABLE TO HAVE SMALL BM, ASSISTED PT BACK TO BED AND SPOUSE REQUESTED NOTE ON DOOR STATING THAT PT IS DEAF BUT CAN READ LIPS AND TO REMOVE MASK TO SPEAK TO PT OR SPEAK VERY LOUD AND CLEAR FOR PT TO BE ABLE TO HEAR YOU. NO OTHER NEEDS CONTINUE WITH PLAN OF CARE
--- NOTE | 2019-07-24 16:34 | NUR ---
PT ON CL REQUESTING PRUNE JUICE, EXPLAINED TO PT THAT HE HAS NOT REALLY AMBULATED T GET THINGS GOING AND SINCE HE STATED HE WAS STILL NAUSEOUS I DID NOT DC NGT EVEN AFTER PT ASKED ME TO CALL AND HAVE DR OK. PT STATED HE JUST NEEDS TO HAVE A LARGE BM AND WILL FEEL BETTER. EXPLAINED TO PT THAT I WILL PUT ORDERS IN FOR PT TO GET HIM MOVING AND THEN HE SHOULD START HAVING BOWEL ACTIVITY. PT WANTED ME TO PAGE AGAIN, EXPLAINED DR PRABHAKAR ON FLOOR AND SHOULD BE STOPPING BY SOON. NO OTHER NEEDS AT THIS TIME
--- NOTE | 2019-07-24 18:38 | NUR ---
PT CONCERNED ABOUT TYLENOL Q6, PT STATED HAD FEVER LAST NIGHT AND GIVEN TYLENOL FOR FEVER BUT HAS NOT BEEN HIGH SINCE, PT HAS CRITICAL CARE REGISTERED NURSE FOR PAIN, CHANGED TYLENOL TO PRN
--- NOTE | 2019-07-24 18:45 | NUR ---
I have reviewed this patient and I concur with the Shift Assessment completed by the Licensed Practical Nurse today this shift.
--- NOTE | 2019-07-24 19:15 | NUR ---
PATIENT LYING IN BED. PATIENT STATES HE IS NOT FEELING GOOD AND IS IN 10/10 PAIN. PATIENT STATES HE DOEES NOT WANT TO TAKE TOO MUCH PAIN MEDICINE IN FEAR OF BECOMING ADDICTED. PATIENT ALERT AND ORIENTED. HAS NO FURTHER NEEDS AT THIS TIME. IV R FA, NS @125, NO REDNESS OR SWELLING NOTED. NG TUBE TO R COLMENARES. ASSEMBLY LINE DRIVER PUMP MORPHINE @ 1,10,10. JOSHI CATHETOR W/ DARK URINE IN BAG. PRAVENA WOUND VAC ATTACHED TO MIDLINE INSCISION. 3 LAP SITES, DRESSINGS C/D/I. BED RAILS X2. BEDSIDE TABLE AND CALL LIGHT WITHIN REACH. WILL CONTINUE TO MONITOR.
[2019-07-25 05:27] VITALS: BP 134/78
[2019-07-25 06:34] LABS: CALC OSMOLALITY 277 mosm/kg (275-300); CALCIUM 7.6 mg/dL (8.5-10.1); CARBON DIOXIDE 24.8 mmol/L (21.0-32.0); CHLORIDE - SERUM 104 mmol/L (98-107); CREATININE - SERUM 0.9 mg/dL (0.6-1.3); GLUCOSE 108 mg/dL (74-106); POTASSIUM - SERUM 3.3 mmol/L (3.5-5.1); SODIUM 140 mmol/L (136-145); UREA NITROGEN 8 mg/dL (7-18); eGFR NON AFRICAN AMERICAN > 90 mL/min (90-120)
[2019-07-25 07:47] LABS: BASOPHILS 0.1 % (0-2); EOSINOPHILS 1.5 % (0-7); HEMATOCRIT 33.1 % (42.0-54.0); HEMOGLOBIN 10.5 g/dL (13.5-17.5); IMMATURE GRANULOCYTES 0.1 % (0-5); MCH 31.2 pg (26.0-34.0); MCHC 31.7 g/dL (31.0-37.0); MCV 98.2 fL (80.0-100.0); MEAN PLATELET VOLUME 8.7 fL (7.4-10.4); MONOCYTES 8.8 % (2-11); NEUTROPHILS 82.5 % (40-80); PLATELET COUNT 218 10x3/uL (130-400); RBC 3.37 10x6/uL (4.20-6.10); RDW 12.9 % (11.5-14.5); WBC 10.7 10x3/uL (4.8-10.8)
--- NOTE | 2019-07-25 07:50 | NUR ---
ALERT AND ORIENTED. LUNGS CLEAR BILATERALLY. HEART SOUNDS S1 AND S2 HEARD IN ALL LOVE. UNABLE TO HEAR BOWEL SOUNDS EXCEPT FOR HYPOACTIVE IN LLQ. LAP SITES TO RIGHT AND LEFT ABD C/D/I. MIDLINE WITH WOUND VAC C/D/I. NG TO RIGHT NARE PATENT HOOKED TO LOW INTERMITTENT SUCTION. JOSHI PATENT DRAINING YELLOW URINE. DENIES NEEDS. BED LOW. CALL [place] AND PERSONAL ITEMS IN REACH WILL CONTINUE TO MONITOR.
[2019-07-25 08:08] VITALS: BP 160/78
--- NOTE | 2019-07-25 10:06 | NUR ---
PATIENT HAD MEDIUM BM. WILL REMOVE NG TUBE PER ORDER.
--- NOTE | 2019-07-25 10:10 | NUR ---
NG TUBE REMOVED PER ORDER.
[2019-07-25 12:29] VITALS: BP 133/85
--- NOTE | 2019-07-25 16:23 | NUR ---
IV SITED TO RIGHT HAND BY VASCULAR ACCESS NURSE.
[2019-07-25 17:47] VITALS: BP 159/93
[2019-07-25 20:00] VITALS: BP 168/92
--- NOTE | 2019-07-25 23:31 | NUR ---
I have reviewed this patient and I concur with the Shift Assessment completed by the Licensed Practical Nurse today this shift.
--- NOTE | 2019-07-26 03:29 | NUR ---
IV INFULTRATED. NEW IV SITE RT FA 20G. ATTEMPTS X4. IV FLUIDS CONTINUED. WILL CONTINUE PLAN OF CARE. CALL LIGHT IN REACH. BED LOWERED AND LOCKED. BED RAILS UPX2.
[2019-07-26 04:00] VITALS: BP 147/98
[2019-07-26 07:32] LABS: BASOPHILS 0.2 % (0-2); EOSINOPHILS 4.8 % (0-7); HEMATOCRIT 33.6 % (42.0-54.0); IMMATURE GRANULOCYTES 0.3 % (0-5); LYMPHOCYTES 10.2 % (15-50); MCH 31.7 pg (26.0-34.0); MCHC 32.7 g/dL (31.0-37.0); MCV 96.8 fL (80.0-100.0); MEAN PLATELET VOLUME 8.9 fL (7.4-10.4); MONOCYTES 9.5 % (2-11); PLATELET COUNT 253 10x3/uL (130-400); RBC 3.47 10x6/uL (4.20-6.10); RDW 12.7 % (11.5-14.5); WBC 10.6 10x3/uL (4.8-10.8)
[2019-07-26 08:00] VITALS: BP 198/96
[2019-07-26 08:02] LABS: CALC OSMOLALITY 276 mosm/kg (275-300); CALCIUM 7.6 mg/dL (8.5-10.1); CARBON DIOXIDE 23.6 mmol/L (21.0-32.0); CHLORIDE - SERUM 104 mmol/L (98-107); CREATININE - SERUM 0.7 mg/dL (0.6-1.3); GLUCOSE 117 mg/dL (74-106); POTASSIUM - SERUM 3.2 mmol/L (3.5-5.1); SODIUM 139 mmol/L (136-145); UREA NITROGEN 8 mg/dL (7-18); eGFR NON AFRICAN AMERICAN > 90 mL/min (90-120)
--- NOTE | 2019-07-26 09:10 | NUR ---
RESTING IN BED, NO DISTRESS NOTED, JOSHI TO GRAVITY, WOUND VAC TO ABD, CONT TO MONITOR PAIN AND ABD
--- NOTE | 2019-07-26 10:49 | MORECARE ---
CASE MANAGEMENT DISCHARGE SUMMARY PATIENT: SUNIL ALEGRIA UNIT: [id number] ADM DATE: 07/23/19 AGE: 59 : 58 SEX: M ROOM/BED: D.2226 AUTHOR: RAYADOC PHYSICIAN: REFERRING PHYSICIAN: ALLYSSA DAHL MD DATE OF SERVICE: 07/26/19 Discharge Plan Patient Name: SUNIL ALEGRIA Facility: [facility]:[place] : 1960 Planned Disposition: Anticipated Discharge Date: Discharge Date: Expected LOS: Initial Reviewer: [email or web address] Initial Review Date: 07/26/2019 Generated: 07/26/19 11:48 am Comments DCP- Discharge Planning Updated by [email or web address]: Florecita Mcmahon on 07/26/19 9:[address] Patient Name: SUNIL ALEGRIA Admission Status: ER Accout number: [id number] Admission Date: 07-23-2019 : 1960 Admission Diagnosis: Attending: ALLYSSA DAHL Current LOS: 3 Anticipated DC Date: Planned Disposition: Primary Insurance: A[employer] MEDICARE PPO or HMO Discharge Planning Comments: CM met with patient at bedside after explaining CM role and obtaining verbal consent. CM discussed availability / needs of home health, REHAB and medical equipment. PATIENT DENIES ANY DISCHARGE NEEDS. STATES HIS WILL TAKE CARE OF HIM AT HOME. DOES NOT WANT REHAB OR HOME HEALTH. PATIENT HAS WOUND VAC AT THIS TIME. CM WILL FOLLOW AND ASSIST NEEDED. Vice President Biostatistics: Florecita Mcmahon DCPIA - Discharge Planning Initial Assessment Updated by [email or web address]: Florecita Mcmahon on 07/26/19 10:42 am * Is the patient Alert and Oriented? Yes * PCP [facility] [place] * Pharmacy [facility] [place] * Preadmission Environment Home with Family * ADLs Independent * Community resources currently utilized None * Can the patient safely return to the preadmission environment? Yes * Has this patient been hospitalized within the prior 30 days at any hospital? Yes Coverage Notice Reviewer: [id number] - Emmy Lowry Notice Issued Date-Time: 07/22/2019 19:47 Notice Type: Medicare Outpatient Observation Notice Notice Delivered To: Patient Relationship to Patient: Self Soil Biology Teacher Name: Delivery Method: HAND - Hand Delivered Areli Days: Prior Verbal Notification: Recipient Understood Notice: Yes Recipient Signature: Yes Med Rec Note Co-signed by Attending: Coverage Notice Comment: Patient Name: SUNIL ALEGRIA Page [phone] at 1049 All edits/amendments must be made on the electronic document DICTATION DATE: 07/26/191048 VICE PRESIDENT BUSINESS DEVELOPMENT: ASHLEY 07/26/19 1049 RPT#: [id number] DC DATE: STATUS: ADM IN [facility] [address] [place] [address] END OF REPORT
[2019-07-26 12:00] VITALS: BP 153/96
[2019-07-26 16:00] VITALS: BP 156/90
[2019-07-27] VITALS: BP 160/90
--- NOTE | 2019-07-27 02:13 | NUR ---
I have reviewed this patient and I concur with the Shift Assessment completed by the Licensed Practical Nurse today this shift.
[2019-07-27 04:00] VITALS: BP 172/89
[2019-07-27 07:05] LABS: CALC OSMOLALITY 276 mosm/kg (275-300); CALCIUM 7.7 mg/dL (8.5-10.1); CARBON DIOXIDE 27.9 mmol/L (21.0-32.0); CHLORIDE - SERUM 103 mmol/L (98-107); CREATININE - SERUM 0.7 mg/dL (0.6-1.3); GLUCOSE 108 mg/dL (74-106); SODIUM 139 mmol/L (136-145); UREA NITROGEN 6 mg/dL (7-18); eGFR NON AFRICAN AMERICAN > 90 mL/min (90-120)
--- NOTE | 2019-07-27 09:00 | NUR ---
PT ALERT AND ORIENTED UPON ENTERING ROOM, AT BEDSIDE. UNABLE TO GIVE IV PROTONIX DUE TO NO IV, WILL CONTACT VASCULAR ACCESS. APPLIED ANTIBIOTIC CREAM TO SORES ON BOTH SIDES OF STOMACH. ASSESSMENT PERFORMED AT THIS TIME. DENIES ANY NEEDS. BED IN LOWEST POSITION, BED RAILS X2, CALL LIGHT WITHIN REACH. WILL CONTINUE TO MONITOR.
--- NOTE | 2019-07-27 09:14 | NUR ---
ADMINISTERED IM MORPHINE FOR PAIN LEVEL OF 9/10. DENIES ANY NEEDS. WILL REASSESS AND CONTINUE TO MONITOR.
[2019-07-27 10:16] LABS: BASOPHILS 0.1 % (0-2); EOSINOPHILS 7.8 % (0-7); HEMATOCRIT 31.4 % (42.0-54.0); HEMOGLOBIN 10.1 g/dL (13.5-17.5); IMMATURE GRANULOCYTES 0.1 % (0-5); LYMPHOCYTES 17.5 % (15-50); MCH 31.1 pg (26.0-34.0); MCHC 32.2 g/dL (31.0-37.0); MCV 96.6 fL (80.0-100.0); MEAN PLATELET VOLUME 8.8 fL (7.4-10.4); MONOCYTES 10.5 % (2-11); PLATELET COUNT 268 10x3/uL (130-400); RBC 3.25 10x6/uL (4.20-6.10); RDW 12.3 % (11.5-14.5)
[2019-07-27 10:17] LABS: WBC 6.8 10x3/uL (4.8-10.8)
[2019-07-27 10:48] VITALS: BP 160/84
--- NOTE | 2019-07-27 10:48 | NUR ---
ADMINISTERED MEDICATION, AND ASSESSED VITALS AT THIS TIME. NO DIFFICULTIES. PT IS UPRIGHT IN BED WITH AT BEDSIDE. DENIES ANY NEEDS. WILL CONTINUE TO MONITOR.
--- NOTE | 2019-07-27 11:30 | NUR ---
AND PATIENT REQUESTING A UROLOGY CONSULT.
--- NOTE | 2019-07-27 13:07 | MORECARE ---
CASE MANAGEMENT DISCHARGE SUMMARY PATIENT: SUNIL ALEGRIA UNIT: [id number] ADM DATE: 07/23/19 AGE: 59 : 58 SEX: M ROOM/BED: D.2226 AUTHOR: RAYADOC PHYSICIAN: REFERRING PHYSICIAN: ALLYSSA DAHL MD DATE OF SERVICE: 07/27/19 Discharge Plan Patient Name: SUNIL ALEGRIA Facility: [facility]:[place] : 1960 Planned Disposition: Anticipated Discharge Date: Discharge Date: Expected LOS: Initial Reviewer: [id number] Initial Review Date: 07/26/2019 Generated: 07/27/19 2:07 pm Comments DCP- Discharge Planning Updated by [id number]: Florecita Mcmahon on 07/26/19 9:[address] Patient Name: SUNIL ALEGRIA Admission Status: ER Accout number: [id number] Admission Date: 07-23-2019 : 1960 Admission Diagnosis: Attending: ALLYSSA DAHL Current LOS: 3 Anticipated DC Date: Planned Disposition: Primary Insurance: AETNA MEDICARE PPO or HMO Discharge Planning Comments: CM met with patient at bedside after explaining CM role and obtaining verbal consent. CM discussed availability / needs of home health, REHAB and medical equipment. PATIENT DENIES ANY DISCHARGE NEEDS. STATES HIS WILL TAKE CARE OF HIM AT HOME. DOES NOT WANT REHAB OR HOME HEALTH. PATIENT HAS WOUND VAC AT THIS TIME. CM WILL FOLLOW AND ASSIST NEEDED. Nutrition Intern: Florecita Mcmahon DCPIA - Discharge Planning Initial Assessment Updated by [id number]: Florecita Mcmahon on 07/26/19 10:42 am * Is the patient Alert and Oriented? Yes * PCP [facility] [place] * Pharmacy [facility] [place] * Preadmission Environment Home with Family * ADLs Independent * Community resources currently utilized None * Can the patient safely return to the preadmission environment? Yes * Has this patient been hospitalized within the prior 30 days at any hospital? Yes Coverage Notice Reviewer: [id number] - Emmy Lowry Notice Issued Date-Time: 07/22/2019 19:47 Notice Type: Medicare Outpatient Observation Notice Notice Delivered To: Patient Relationship to Patient: Self Wind Tunnel Technician Name: Delivery Method: HAND - Hand Delivered Areli Days: Prior Verbal Notification: Recipient Understood Notice: Yes Recipient Signature: Yes Med Rec Note Co-signed by Attending: Coverage Notice Comment: Last DP export: 07/26/19 9:49 a Patient Name: SUNIL ALEGRIA Page [phone] at 1307 All edits/amendments must be made on the electronic document DICTATION DATE: 07/27/19 1307 GEM STONE CUTTER: ASHLEY 07/27/19 1307 RPT#: [id number] DC DATE: STATUS: ADM IN [facility] [address] [place] [address] END OF REPORT
--- NOTE | 2019-07-27 13:32 | OP ---
PATIENT NAME: SUNIL ALEGRIA MEDICAL RECORD: [id number] :58 LOCATION:D.MS [id number] ADMISSION DATE:07/23/19 SURGEON: ALLYSSA DAHL MD DATE OF OPERATION: 07/23/2019 PREOPERATIVE DIAGNOSIS: Postoperative wound dehiscence leading to abdominal wall defect with herniation of the small bowel causing small-bowel obstruction. POSTOPERATIVE DIAGNOSES: Postoperative wound dehiscence leading to abdominal wall defect with herniation of the small bowel causing small-bowel obstruction with inability to approximate the rectus muscles in the midline without utilizing the bilateral component separation technique. PROCEDURE: Open incarcerated incisional hernia repair with Ventralex ST hernia patch and Prolene mesh in a sandwiched fashion. The hernia repair was performed utilizing the component separation technique. The myofascial release on the right was 15.5 cm and on the left was 15 cm. The risks, possible complications and alternatives to the procedure were explained to the patient. He elects to proceed. The discussion specifically included, but was not limited to, bleeding requiring emergency reoperation, infection, as well as the possible need for revisionary procedure. 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 OPERATIVE COURSE: The patient was conveyed to the operating room urgently on 07/23/2019. General anesthesia was induced by the anesthesia staff. The abdomen was sterilely prepped and draped. The midline sutures were cut. The subcutaneous sutures were cut. Immediately, I identified small bowel, which had herniated up through the muscular dehiscence. I began to run the small bowel. I noted no full thickness bowel injury. There was an area of small bowel that was stuck to the abdominal wall and when I released it, it had a guerin color and was little thin and I was fearful that there could be a delayed perforation here. I grasped the small bowel with an Allises and tangentially stapled off the bowel in order to reinforce it. I confirmed that there was no narrowing of the small bowel at this site. I returned the small bowel to the abdominal cavity. I irrigated with normal saline. There was no bleeding. The muscle was in bad shape. Many of the sutures had pulled right through the rectus muscle. These PDS sutures were cut out. I tried to pull the muscles together in the midline was unable to do so. Therefore, I wanted to perform the component separation technique, to see if I could then approximate the muscle in the midline. I felt, if I did not approximate it that the sutures were just rip out as they had before. On the right side, a parasagittal incision was accomplished. I dissected down through the skin and subcutaneous tissue. This was from the anterior superior iliac spine to the right costal margin. I dissected down to the external oblique muscle and fascia. This was divided with electrocautery. Some blunt finger dissection was performed. I measured the myofascial release. In the midline, I still could not approximate the muscles. Therefore, the OPERATIVE REPORT [id number] bilateral approach was indicated. I went around to the other side. An incision was accomplished. This was a parasagittal incision as well. I dissected down through the skin and subcutaneous tissue. I dissected down to the external oblique muscle and fascia. The myofascial release was performed with electrocautery. Some blunt finger dissection was performed as well. I then returned to the midline. I was now able to approximate the muscles in the midline. Multiple interrupted horizontal mattress #1 Surgidacs were used. I wanted to place some mesh deep to the sutures in order to perform a sandwiched type of mesh repair. The Ventralight ST mesh was placed deep to the sutures. The sutures were then tied pulling the muscle together. I took the tags of the Ventralight ST mesh and sutured it to the muscle on either side with a 0 Surgidac. I then cut a Prolene mesh. I placed this on top of the muscles in the subcutaneous tissues. I then tacked this to the underlying muscles with the SorbaFix Tacker. The deep adipose tissue was closed with interrupted 3-0 Vicryls. Subcutaneous adipose tissue was closed with interrupted 3-0 Vicryls. The skin in the midline was closed with vertical mattress 2-0 nylons. At each flank incision, the subcutaneous tissues were closed with interrupted 3-0 Vicryls. The skin was closed with metallic clips. In the midline, a Prevena wound VAC was applied to suck away fluid and also to stabilize the abdominal wall as the patient is going to be at a high risk for reherniation and complications. TRANSINT:[id number] Voice Confirmation ID: [id number] DOCUMENT ID: [id number] ALLYSSA DAHL MD at 1332 CC: JESUS CHIRINOS [id number] DICTATION DATE: 07/24/1903 PRESCRIPTION CLERK LENSES: 07/24/19 1310 ADM IN [place] [id number] [facility], [facility]
--- NOTE | 2019-07-27 13:49 | NUR ---
ADMINISTERED PRN MORPHINE FOR PAIN LEVEL OF 9/10. TOLERATED WELL. PT HAS NEW MIDLINE TO UPPER RIGHT ARM. AT BEDSIDE. DENIES ANY NEEDS. WILL CONTINUE TO MONITOR.
[2019-07-27 14:47] VITALS: Ht 190.5 cm; Wt 127.9 kg
--- NOTE | 2019-07-27 18:24 | NUR ---
PT WENT FOR A LAP AROUND THE UNIT WITH , TOLERATED WELL. RECONNECTED PT TO WOUNDVAC. REQUESTED PAIN MEDICATION, WILL PROVIDE PROMPTLY. DENIES ANY OTHER NEEDS. WILL CONTINUE TO MONITOR.
--- NOTE | 2019-07-27 18:54 | NUR ---
ADMINISTERED PRN MORPHINE FOR PAIN OF 8. DENIES ANY NEEDS. RESTING COMFORTABLY IN BED. WILL CONTINUE TO MONITOR.
--- NOTE | 2019-07-27 19:43 | NUR ---
PATIENT IS WITHOUT NEEDS.CALL LIGHT IN REACH
[2019-07-27 20:00] VITALS: BP 145/81
[2019-07-28] VITALS: BP 133/74
[2019-07-28 04:00] VITALS: BP 135/77
[2019-07-28 06:39] LABS: BASOPHILS 0.4 % (0-2); HEMATOCRIT 30.1 % (42.0-54.0); HEMOGLOBIN 9.7 g/dL (13.5-17.5); IMMATURE GRANULOCYTES 0.4 % (0-5); MCHC 32.2 g/dL (31.0-37.0); MCV 96.2 fL (80.0-100.0); MEAN PLATELET VOLUME 8.5 fL (7.4-10.4); NEUTROPHILS 60.2 % (40-80); PLATELET COUNT 266 10x3/uL (130-400); RBC 3.13 10x6/uL (4.20-6.10); RDW 12.4 % (11.5-14.5); WBC 5.3 10x3/uL (4.8-10.8)
[2019-07-28 06:47] LABS: CALC OSMOLALITY 276 mosm/kg (275-300); CARBON DIOXIDE 29.8 mmol/L (21.0-32.0); CHLORIDE - SERUM 104 mmol/L (98-107); CREATININE - SERUM 0.6 mg/dL (0.6-1.3); GLUCOSE 97 mg/dL (74-106); SODIUM 140 mmol/L (136-145); UREA NITROGEN 7 mg/dL (7-18); eGFR NON AFRICAN AMERICAN > 90 mL/min (90-120)
[2019-07-28 06:57] LABS: POTASSIUM - SERUM 2.7 mmol/L (3.5-5.1)
[2019-07-28 08:00] VITALS: BP 147/84
[2019-07-28 12:00] VITALS: BP 144/85
[2019-07-28 16:00] VITALS: BP 143/81
[2019-07-28 20:00] VITALS: BP 143/86
--- NOTE | 2019-07-28 22:20 | NUR ---
PT'S MORPHINE ORDER WAS FOR IM DUE TO HIM NOT HAVING IV ACCESS. PT HAS A LEFT UPPER MIDLINE IV NOW. CHANGED MORPHINE ORDER BACK TO IV.
[2019-07-29] VITALS: BP 160/98
[2019-07-29 04:00] VITALS: BP 150/78
[2019-07-29 08:35] VITALS: BP 167/92
[2019-07-29 09:39] LABS: BASOPHILS 0.4 % (0-2); EOSINOPHILS 10.6 % (0-7); HEMATOCRIT 37.8 % (42.0-54.0); HEMOGLOBIN 12.3 g/dL (13.5-17.5); IMMATURE GRANULOCYTES 0.4 % (0-5); LYMPHOCYTES 18.4 % (15-50); MCH 31.4 pg (26.0-34.0); MCHC 32.5 g/dL (31.0-37.0); MCV 96.4 fL (80.0-100.0); MEAN PLATELET VOLUME 8.5 fL (7.4-10.4); MONOCYTES 9.3 % (2-11); NEUTROPHILS 60.9 % (40-80); PLATELET COUNT 359 10x3/uL (130-400); RBC 3.92 10x6/uL (4.20-6.10); RDW 12.4 % (11.5-14.5); WBC 8.2 10x3/uL (4.8-10.8)
--- NOTE | 2019-07-29 10:13 | NUR ---
PT ALERT X 4. BREATH SOUNDS CLEAR BILAT. MIDLINE TO LEFT UPPER ARM, SALINE LOCKED. ABDOMEN DISTENDED, INCISIONS WITH ARMANDO TO BOTH SIDES, SCABS FROM PAST DRESSINGS, DRESSING TO MIDLINE INCISIONS. PT REPORTING PAIN OF 5/10, NOT WANTING ANY MEDICATIONS AT THIS TIME. PT REALLY WANTING TO GO HOME TODAY. BED LOW, CALL LIGHT IN REACH. NO OTHER NEEDS AT THIS TIME.
[2019-07-29 10:55] LABS: ALBUMIN 3.3 g/dL (3.4-5.0); ALKALINE PHOSPHATASE 82 U/L (30-120); ALT (SGPT) 34 U/L (10-68); BILIRUBIN - TOTAL 0.45 mg/dL (0.2-1.3); CALC OSMOLALITY 273 mosm/kg (275-300); CALCIUM 8.5 mg/dL (8.5-10.1); CARBON DIOXIDE 29.7 mmol/L (21.0-32.0); CHLORIDE - SERUM 99 mmol/L (98-107); GLUCOSE 152 mg/dL (74-106); POTASSIUM - SERUM 3.4 mmol/L (3.5-5.1); PROTEIN - SERUM 6.7 g/dL (6.4-8.2); SODIUM 137 mmol/L (136-145); UREA NITROGEN 5 mg/dL (7-18); eGFR NON AFRICAN AMERICAN 81 mL/min (90-120)
[2019-07-29] MEDS ORDERED: ZOFRAN ODT4 MG/UDTAB PO (12:45)
[2019-07-29] MEDS ORDERED: HYDROCODON-ACE1 EA10 PO (12:45)
--- NOTE | 2019-07-29 15:44 | NUR ---
DISCHARGE PAPERWORK SIGNED, ALL QUESTIONS ANSWERED. MIDLINE TO LEFT UPPER ARM DC'D, TIP INTACT. ESCORTED OUT VIA WHEELCHAIR.
--- NOTE | 2019-07-31 08:30 | MORECARE ---
CASE MANAGEMENT DISCHARGE SUMMARY PATIENT: SUNIL ALEGRIA UNIT: [id number] ADM DATE: 07/23/19 AGE: 59 : 58 SEX: M ROOM/BED: D.2226 AUTHOR: RAYA,DOC PHYSICIAN: REFERRING PHYSICIAN: ALLYSSA DAHL MD DATE OF SERVICE: 07/31/19 Discharge Plan Patient Name: SUNIL ALEGRIA Facility: [facility]:[place] : 1960 Planned Disposition: Anticipated Discharge Date: Discharge Date: 07/29/2019 Expected LOS: Initial Reviewer: [id number] Initial Review Date: 07/26/2019 Generated: 07/31/19 9:30 am DCP- Discharge Planning Updated by [email or web address]: Florecita Mcmahon on 07/26/19 9:[address] Patient Name: SUNIL ALEGRIA Admission Status: ER Accout number: [id number] Admission Date: 07-23-2019 : 1960 Admission Diagnosis: Attending: ALLYSSA DAHL Current LOS: 3 Anticipated DC Date: Planned Disposition: Primary Insurance: AETNA MEDICARE PPO or HMO Discharge Planning Comments: CM met with patient at bedside after explaining CM role and obtaining verbal consent. CM discussed availability / needs of home health, REHAB and medical equipment. PATIENT DENIES ANY DISCHARGE NEEDS. STATES HIS WILL TAKE CARE OF HIM AT HOME. DOES NOT WANT REHAB OR HOME HEALTH. PATIENT HAS WOUND VAC AT THIS TIME. CM WILL FOLLOW AND ASSIST NEEDED. Splicer Apprentice: Florecita Mcmahon DCPIA - Discharge Planning Initial Assessment Updated by [id number]: Florecita Mcmahon on 07/26/19 10:42 am * Is the patient Alert and Oriented? Yes * PCP [facility] [place] * Pharmacy [facility] [place] * Preadmission Environment Home with Family * ADLs Independent * Community resources currently utilized None * Can the patient safely return to the preadmission environment? Yes * Has this patient been hospitalized within the prior 30 days at any hospital? Yes Coverage Notice Reviewer: [id number] - Emmy Lowry Notice Issued Date-Time: 07/22/2019 19:47 Notice Type: Medicare Outpatient Observation Notice Notice Delivered To: Patient Relationship to Patient: Self Social Economist Name: Delivery Method: HAND - Hand Delivered Areli Days: Prior Verbal Notification: Recipient Understood Notice: Yes Recipient Signature: Yes Med Rec Note Co-signed by Attending: Coverage Notice Comment: Last DP export: 07/27/19 12:07 p Patient Name: SUNIL ALEGRIA Page [phone] at 0830 All edits/amendments must be made on the electronic document DICTATION DATE: 07/31/19829 HANDBOOK WRITER: ASHLEY 07/31/19829 RPT#: [id number] DC DATE:07/29/19 STATUS: DIS IN [facility] [address] [place] [address] END OF REPORT
== END 2019-07-29 15:45 | disposition home or self-care (01) | DRG 354 ==
LOC: D.ER 00:19 → D.MS 03:21 → OBSVTIME 03:21 → D.MS 03:21
PROVIDERS: Emergency Medicine; Family Medicine; Internal Medicine Nephrology; ADMIT Surgery; ATTEND Surgery
PROC: 0WUF0JZ Supplement Abdominal Wall with Synthetic Substitute, Open Approach (ICD-10-PCS; principal; 2019-07-23 17:00)
PROC: 05HY33Z Insertion of Infusion Device into Upper Vein, Percutaneous Approach (ICD-10-PCS; 2019-07-27)
DX: K46.0 Unspecified abdominal hernia with obstruction, without gangrene (principal); T81.31XA Disruption of external operation (surgical) wound, not elsewhere classified, initial encounter; D64.9 Anemia, unspecified; I10 Essential (primary) hypertension; J44.9 Chronic obstructive pulmonary disease, unspecified; E78.5 Hyperlipidemia, unspecified; I25.10 Atherosclerotic heart disease of native coronary artery without angina pectoris; K21.9 Gastro-esophageal reflux disease without esophagitis; K22.70 Barrett's esophagus without dysplasia; F41.8 Other specified anxiety disorders; R31.9 Hematuria, unspecified

== ENCOUNTER 2019-09-29 01:18 | Observation (INO) | payer MEDICARE ==
[~2019-09-29] VITALS: Ht 190.5 cm; Wt 167.8 kg
[~2019-09-29 01:18] MED LIST changes: +ZOFRAN ODT4 MG/UDTAB PO
--- NOTE | 2019-09-29 02:55 | NUR ---
PT FROM ER VIA STRETCHER, NO ACUTE DISTRESS NOTED, PT AMBULATED TO BED, HEART MONITOR IN PLACE, PT RESP EVEN AND UNLABORED, NO C/O CHEST PAIN NOTED AT THIS TIME, CL IN REACH, SR UP X 2.
[2019-09-29 08:00] VITALS: BP 141/87
[2019-09-29 11:00] VITALS: BP 129/79
[2019-09-29 12:37] LABS: BASOPHILS 0.2 % (0-2); EOSINOPHILS 2.6 % (0-7); HEMATOCRIT 39.7 % (42.0-54.0); HEMOGLOBIN 13.1 g/dL (13.5-17.5); IMMATURE GRANULOCYTES 0.2 % (0-5); MCH 31.2 pg (26.0-34.0); MCV 94.5 fL (80.0-100.0); MEAN PLATELET VOLUME 8.9 fL (7.4-10.4); MONOCYTES 8.5 % (2-11); NEUTROPHILS 61.5 % (40-80); PLATELET COUNT 161 10x3/uL (130-400); RDW 13.3 % (11.5-14.5); WBC 5.3 10x3/uL (4.8-10.8)
[2019-09-29 12:55] LABS: CALC OSMOLALITY 270 mosm/kg (275-300); CALCIUM 8.7 mg/dL (8.5-10.1); CARBON DIOXIDE 31.4 mmol/L (21.0-32.0); CHLORIDE - SERUM 100 mmol/L (98-107); CREATININE - SERUM 0.9 mg/dL (0.6-1.3); SODIUM 136 mmol/L (136-145); TROPONIN-I < 0.017 ng/mL (0.000-0.060); UREA NITROGEN 11 mg/dL (7-18); eGFR NON AFRICAN AMERICAN > 90 mL/min (90-120)
[2019-09-29 13:04] LABS: GLUCOSE 99 mg/dL (74-106)
[2019-09-29 14:12] VITALS: BMI 46.2
[2019-09-29 14:50] VITALS: Ht 190.5 cm; Wt 167.8 kg
[2019-09-29 16:19] VITALS: BP 131/82
--- NOTE | 2019-09-29 17:47 | NUR ---
C/O C/P 10. B/P 137/78. 02 2L NC APPLIED. NITRO SL GIVEN. WILL MONITOR.
--- NOTE | 2019-09-29 17:55 | NUR ---
RESTS WITH EYES CLOSED. B/P 107/72. WILL CONT. PLAN OF CARE.
--- NOTE | 2019-09-29 19:47 | NUR ---
RECEIVED BEDSIDE REPORT AND ROUNDING COMPLETE. PATIENT IS ALERT AND ORIENTED RESTING COMFORTABLY IN BED. RESPIRATIONS ARE EVEN AND UNLABORED. NO S/S OF DISTRESS. NO C/O PAIN. CALL LIGHT WITHIN REACH. WILL CPOC.
[2019-09-29 19:55] VITALS: BP 116/66
[2019-09-30 00:32] VITALS: BP 120/72
[2019-09-30 05:51] LABS: BASOPHILS 0.4 % (0-2); HEMATOCRIT 39.2 % (42.0-54.0); HEMOGLOBIN 12.9 g/dL (13.5-17.5); LYMPHOCYTES 26.1 % (15-50); MCH 31.1 pg (26.0-34.0); MCHC 32.9 g/dL (31.0-37.0); MCV 94.5 fL (80.0-100.0); MEAN PLATELET VOLUME 9.5 fL (7.4-10.4); MONOCYTES 11.2 % (2-11); NEUTROPHILS 60.3 % (40-80); PLATELET COUNT 173 10x3/uL (130-400); RBC 4.15 10x6/uL (4.20-6.10); RDW 13.4 % (11.5-14.5); WBC 5.4 10x3/uL (4.8-10.8)
[2019-09-30 06:03] VITALS: BP 131/77
[2019-09-30 06:09] LABS: ALBUMIN 3.3 g/dL (3.4-5.0); ALKALINE PHOSPHATASE 104 U/L (30-120); ALT (SGPT) 52 U/L (10-68); BILIRUBIN - TOTAL 0.58 mg/dL (0.2-1.3); CALCIUM 8.5 mg/dL (8.5-10.1); CARBON DIOXIDE 29.9 mmol/L (21.0-32.0); CHLORIDE - SERUM 101 mmol/L (98-107); CREATININE - SERUM 0.9 mg/dL (0.6-1.3); GLUCOSE 94 mg/dL (74-106); MAGNESIUM - SERUM 2.1 mg/dL (1.8-2.4); PHOSPHOROUS 4.3 mg/dL (2.5-4.9); POTASSIUM - SERUM 4.2 mmol/L (3.5-5.1); PROTEIN - SERUM 6.8 g/dL (6.4-8.2); SODIUM 136 mmol/L (136-145); eGFR NON AFRICAN AMERICAN > 90 mL/min (90-120)
[2019-09-30 06:11] LABS: CALC OSMOLALITY 272 mosm/kg (275-300); TROPONIN-I < 0.017 ng/mL (0.000-0.060); UREA NITROGEN 16 mg/dL (7-18)
--- NOTE | 2019-09-30 07:15 | NUR ---
RECEIVED PT IN BED EYES CLOSED RESP UNLABORED SKIN W/D COLOR WNL NAD NOTED
[2019-09-30 08:30] VITALS: BP 139/64
--- NOTE | 2019-09-30 12:00 | NUR ---
REVIEWED DISCHARGE INSTRUCTION WITH PT STATES UNDERSTANDING COPY GIVEN DCD SALINE LOCK TO RAC WITH IV CATHETER INTACT SITE FREE OF REDNESS OR EDEMA PT DISCHARGED HOME LEFT UNIT VIA W/ IN STABLE CONDITION WITH ALL PERSONAL BELONGING
--- NOTE | 2019-10-02 13:47 | EC ---
PATIENT:SUNIL ALEGRIA DATE OF SERVICE: 09/29/19 SEX: M MEDICAL RECORD: [id number] DATE OF : 58 LOCATION:D.M2 D.211 AGE OF PATIENT: 59 ADMISSION DATE: 09/29/19 REFERRING PHYSICIAN: INTERPRETING PHYSICIAN: SARA QUIÑONEZ MD ECHOCARDIOGRAM REPORT ECHO CHARGES 4 ECHO COMPLETE Date: 09/29/19 CLINICAL DIAGNOSIS: CP ECHOCARDIOGRAPHIC MEASUREMENTS (adult normal given) AC root (d.<3.7cm) 3.3 cm LV Septum d (<1.2 cm> 1.4 cm Valve Excursion 2.2 cm LV Septum (systole) 2.5 cm Left Atria (s.<4.0cm> 3.5 cm LVPW d(<1.2cm) 1.4 cm RV (d.<2.3cm) 3.0 cm LVPW (sytole) 1.7 cm LV diastole(<5.6CM) 4.6 cm MV E-F(>70mm/sec) cm LV systole 2.5 cm LVOT Diameter 1.8 cm MV exc.(>10mm) cm Est.ejection fraction (50-75%) % DOPPLER: LVIT cm/sec A 72 cm/sec E 65 cm/sec LA cm/sec RVSP 18.7 mmHg LVOT 130 cm/sec AOP1/2T m/s Asc. Ao 152 cm/sec RVOT 62 cm/sec RA cm/sec PA 91 cm/sec AV Gradient Peak 9.2 mmHg AV Mean 4.4 mmHg AV Area 2.4 cm MV Gradient Peak 2.9 mmHg MV Mean 1.4 mmHg MV Area cm COMMENTS: Medical And Health Services Manager: [facility] Real Estate Leasing Agent: [address] Dr. Rushing TAPE# PACS Pericardial Effusion N DATE OF SERVICE: Adequate 2D, color flow imaging, spectral Doppler, and M-Mode. LVH is present. LV internal dimensions are normal. Wall motion is normal. EF is greater than or equal to 55%. Aortic valve is tricuspid. No evidence of stenosis by Doppler interrogation. Left atrium is normal at 3.5 cm. Mitral valve shows no prolapse. Trace MR. Right-sided chambers are grossly normal. Trace TR. ECHOCARDIOGRAM REPORT [id number] SUNIL ALEGRIA TRANSINT:[id number] Voice Confirmation ID: [id number] DOCUMENT ID: [id number] SARA QUIÑONEZ MD at 1347 CC: [id number] DICTATION DATE: 09/29/19 1418 FIREWALL ENGINEER: 09/30/19 0015 DIS IN 09/30/19 [place] [id number] [place] [address]
--- NOTE | 2019-10-02 13:47 | CN ---
PATIENT NAME:SUNIL ALEGRIA MEDICAL RECORD: [id number] : 58 LOCATION:D. D.2117 ADMIT DATE: 09/29/19 ACCOUNT: [id number] CONSULTING PHYSICIAN: SARA QUIÑONEZ MD REFERRING PHYSICIAN: ADY ZAVALA MD DATE OF CONSULTATION: 09/29/2019 HISTORY OF PRESENT ILLNESS: A 59-year-old gentleman with history of coronary artery disease has chronic chest pain in addition to chronic angina, some of his pains is typical atypical. He had recent angiography in May of this year, admitted with chest pain accompanied by marked nausea. Pain is in the epigastrium with radiation into the chest. Cardiac enzymes negative so far. Also reports unilateral left arm and leg weakness. He does have a bruit on exam today. We are asked to see him concerning his cardiovascular status. PAST MEDICAL HISTORY: 1. History of hypertension. 2. Hyperlipidemia. 3. Gastroesophageal reflux disease. MEDICATIONS: Include Questran 1 packet daily, diltiazem 240 every day, Tribenzor 45/25 one every day, clonidine 0.1 p.r.n., Cymbalta 60 every day, [place] 10/325 one q.6 hours p.r.n., Klonopin 1 mg at bedtime, and trazodone 50 at bedtime. SOCIAL HISTORY: Nonsmoker, nondrinker. No set exercise program, although we have attempted to get him referred to cardiac rehab in the past. Easily takes care of all his ADLs. REVIEW OF SYSTEMS: The patient reports easy bruising but reports no swollen glands. The patient reports no fever, no night sweats, no significant weight gain, no significant weight loss. No significant exercise tolerance. The patient reports no dry eyes, no irritation, no vision change. Patient reports no difficulty hearing and no ear pain. Patient reports no frequent nose bleeds or nose and sinus problems. Patient reports on arm pain on exertion. No shortness of breath while lying down. No history of heart murmur. Patient reports no cough, no wheezing or coughing up blood. Patient reports no abdominal pain, no vomiting. Normal appetite. No diarrhea and not vomiting blood. No nausea and no constipation. Patient reports no incontinence. No difficulty urinating. No hematuria. No increased frequency. Patient reports no muscle aches. No weakness, no arthralgias, no back pain. No swelling of the extremities. Patient reports no abnormal mole, no jaundice, no rashes. Reports no loss of consciousness. No weakness and no numbness. No seizures, dizziness, or headaches. The patient reports no depression, no sleep disturbance, feeling safe in a relationship and no alcohol abuse. Patient reports on fatigue. Reports no runny nose or sinus pressure. No itching, no hives, and no frequent sneezing. PHYSICAL EXAMINATION: GENERAL: Appears stated age, in no acute distress. VITAL SIGNS: Blood pressure 141/87, pulse 56 and regular. HEENT: Normocephalic, atraumatic. NECK: No JVD or bruits. HEART: Regular. Questionable S4 gallop. LUNGS: Good air excursion. CONSULT REPORT [id number] SUNIL ALEGRIA ABDOMEN: Soft, nontender. EXTREMITIES: Pulse 2+. No edema. IMPRESSION: Chest pain, somewhat atypical. In light of recent angiography would simply rule out cardiac enzymes, check echocardiographic study. Given his carotid bruit and symptomology will check carotid Dopplers as well. 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
== END 2019-09-30 12:00 | disposition home or self-care (01) ==
LOC: D.ER 01:18 → OBSVTIME 02:02 → D.M2 02:02
PROVIDERS: Family Medicine; ADMIT Emergency Medicine; ATTEND Emergency Medicine
DX: I25.110 Atherosclerotic heart disease of native coronary artery with unstable angina pectoris (principal); I10 Essential (primary) hypertension; E78.5 Hyperlipidemia, unspecified; R10.9 Unspecified abdominal pain; K43.2 Incisional hernia without obstruction or gangrene; K21.9 Gastro-esophageal reflux disease without esophagitis